=== PATIENT | female | born 1980 | race Caucasian/White ===

== ENCOUNTER 2019-11-09 10:22 | Emergency (ER) | payer MEDICAID, SELFPAY ==
[2019-11-09] VITALS (9 sets, daily range): BP systolic 122–150; BP diastolic 80–98; PULSE 71–82; RESP 16–20; TEMP 36.6; O2SAT 98–100; BMI 20.6
--- NOTE | 2019-11-09 10:40 | W.ED.ABDPA2 ---
HPI - Abdominal Pain General: Chief Complaint: Abdominal Pain Stated Complaint: ABD PAIN Time Seen by Provider: 11/09/19 10:36 History of Present Illness: Associated Symptoms: Denies chills, constipation, diarrhea, dysuria, fever(s), hematochezia, hematuria, nausea and vomiting Review of Systems Const: Denies: fever(s), chills or fatigue Eyes: Denies: change in vision or eye discomfort ENMT: Denies: throat pain, odynophagia, nasal discharge or nasal congestion Card: Denies: chest pain, palpitations, edema, swelling of feet/ankles, dyspnea on exertion or orthopnea Resp: Denies: dyspnea, productive cough or non-productive cough GI: Denies: abdominal pain, nausea, vomiting, diarrhea, constipation or hematochezia : Denies: flank pain, dysuria or hematuria Musc: Denies: neck pain, back pain or extremity swelling Skin/Breast: Denies: rash or new lesions Neuro: Denies: headache(s), numbness in extremities or weakness in extremities Physical Exam Const: COMMON NORMALS: patient oriented x3 HENMT: COMMON NORMALS: normocephalic HEAD & SCALP: normocephalic MOUTH: Normal oral and palatal mucosa present THROAT: posterior oropharynx normal and uvula midline Neck/C-Spine: COMMON NORMALS: supple GENERAL: Yes normal visual inspection Resp: COMMON NORMALS: normal respiratory effort, No retractions, No use of accessory muscles and clear to auscultation bilaterally AUSCULTATION: clear to auscultation bilaterally Cardio: COMMON NORMALS: regular rate, regular rhythm, S1 normal heart sound present, S2 normal heart sound present, No gallops present (Cardio), No clicks present (Cardio), No murmurs present (Cardio) and Peripheral pulses 2+ throughout RATE: regular rate RHYTHM: regular rhythm HEART SOUNDS: S1 normal heart sound present and S2 normal heart sound present PERIPHERAL PULSES: Peripheral pulses 2+ throughout GI: COMMON NORMALS: Normal to inspection, nondistended, normoactive bowel sounds present, Soft to palpation, non-tender and no masses PALPATION: Yes Soft to palpation : COMMON NORMALS: Yes no CVA tenderness BLADDER/KIDNEY EXAM: Yes no CVA tenderness Back/Pelvis: COMMON NORMALS: no CVA tenderness Neuro: COMMON NORMALS: patient oriented x3 GAIT: Yes Normal gait present Course Vital Signs: Vital signs: Vital Signs Temperature 97.9 F 11/09/19 10:28 Pulse Rate 82 11/09/19 10:28 Respiratory Rate 20 H 11/09/19 10:28 Blood Pressure 140/98 11/09/19 10:28 Pulse Oximetry 99 11/09/19 10:28 Coding Level of Care 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
--- NOTE | 2019-11-09 11:21 | XRR_ITS ---
PROCEDURE INFORMATION: Exam: XR Chest, 2 Views Exam date and time: 11/09/2019 12:00 PM Age: 39 years old Clinical indication: Other: Right lower pain and upper abd; Prior surgery; Surgery date: 6+ months; Surgery type: Lung transplant; Patient HX: Upper abd pain and rl abd. HX of cystic fibrosis TECHNIQUE: Imaging protocol: XR of the chest Views: 2 views. COMPARISON: CR Chest 1 [place] [id number] 06/22/2018 8:55 AM FINDINGS: Lungs: Mild hyperinflation of the right lung. No focal infiltrate. Parenchymal band/scarring left upper lobe. Apical pleural thickening. Stable. Pleural space: Unremarkable. No pleural effusion. No pneumothorax. Heart/Mediastinum: Unremarkable. No cardiomegaly. Bones/joints: prior sternotomy. XR/XR chest 2V* [id number] IMPRESSION: 1. Mild hyperinflation of the right lung. No focal infiltrate. 2. Parenchymal band/scarring left upper lobe. Apical pleural thickening. Stable.
[2019-11-09 11:22] LABS: Basophils % 0.2 %; Eosinophils % 0.1 %; Hematocrit 42.1 % (37.0-47.0); Hemoglobin 14.1 g/dL (11.5-15.3); Lymphocytes # 0.6 10^3/uL (0.8-4.8); Lymphocytes % 2.8 %; Mean Corpuscular HGB Conc 33.5 g/dL (30.0-36.0); Mean Corpuscular Hemoglobin 34.3 pg (28.0-34.0); Mean Corpuscular Volume 102.4 fL (81-99); Mean Platelet Volume 10.7 fL (7.4-10.4); Monocytes # 0.8 10^3/uL (0.2-0.9); Monocytes % 3.8 %; Neutrophils # 20.06 10^3/uL (1.8-7.7); Neutrophils % 92.7 %; Nucleated Red Blood Cells % 0 %; Platelet Count 260 10^3/cmm (130-400); Red Blood Count 4.11 10^6/uL (4.1-5.3); White Blood Count 21.6 10^3/uL (4.0-10.0)
[2019-11-09] MEDS: ondansetron 2 mg/ML SDV 2 mL 4 MG IVP (11:22)
[2019-11-09] MEDS: sodium chloride 0.9% 1,000 ML 999 ML IV (11:22)
[2019-11-09] MEDS: morphine 4 mg/mL SDV 1 mL IVP ×3 (11:23→17:46)
--- NOTE | 2019-11-09 11:31 | PC.NURSE ---
Xray at bedside
[2019-11-09 11:38] LABS: HCG, Serum Qual Negative (Negative)
[2019-11-09 11:55] LABS: Alanine Aminotransferase 19 U/L (0-33); Alkaline Phosphatase 127 IU/L (35-105); Anion Gap 18.1 (5-19); Aspartate Amino Transferase 31 U/L (0-32); Blood Urea Nitrogen 17 mg/dL (6-20); Calcium 8.9 mg/dL (8.5-10.5); Carbon Dioxide 22 mmol/L (22-29); Chloride 97 mmol/L (98-107); Globulin 3.3 g/dL (1.3-4.6); Glomerular Filtration Rate 27.7 mL/min (90-130); Glucose 105 mg/dL (65-115); Osmolality Calculated 275 mOsm/kg (285-295); Potassium 3.1 mmol/L (3.5-5.1); Sodium 134 mmol/L (136-145); Total Bilirubin 0.7 mg/dL (0.15-1.2); Total Protein 7.3 g/dL (6.6-8.7)
[2019-11-09 11:56] LABS: Lactic Sepsis W/Reflex 0.9 mmol/L (0.5-2.2)
--- NOTE | 2019-11-09 12:01 | CT_ITS ---
WS: [id number] CT ABDOMEN PELVIS TECHNIQUE: Noncontrast CT of the abdomen and pelvis with coronal and sagittal reformatted images. CLINICAL INFORMATION: Flank/Abdominal Pain COMPARISON: None. DLP: 408.[address] scans at [facility] use at least one of these dose optimization techniques: automat ed exposure control; mA and/or kV adjustment per patient size (includes targeted exams where dose is matched to clinical indication); or iterative reconstruction. FINDINGS: Thoracolumbar scoliosis convex right. Left BLADE. Prior sternotomy. Noncontrast liver is normal. Cholec ystectomy clips. Normal GE junction. Noncontrast spleen is normal. Normal adrenal glands. Nonobstruct ing bilateral renal parenchymal calculi the largest in the left measuring 7 mm. Mild to moderate dilatation of the right ureter with 4 mm calculus at the right UVJ. Mild inflammator y stranding about the right kidney. In addition, Right ovarian cystic lesion measures 3.2 x 3.2 CM an d also may contribute to ureteral obstruction. Urine distended bladder. Mild pancolonic constipation. No evidence of high-grade obstruction. No periaortic or inguinal lympha denopathy. No free fluid in the pelvis. Notified Karen Tamayo at 11/09/2019 2:[address]/CT kidney stone [id number] IMPRESSION: 1. 4 mm calculus at the right UVJ with mild to moderate right ureterectasis an d pelvocaliectasis. Mild inflammatory stranding about the right kidney. 2. In addition, Right ovarian cystic lesion measuring 3.2 x 3.2 cm also may co ntribute to right ureter obstruction. This can be followed up with ultrasound b ut is likely physiologic in a patient this age. 3. Additional nonobstructing bilateral renal parenchymal calculi. 4. Cholecystectomy clips. 5. Advanced thoracolumbar scoliosis. 6. Left BLADE. 7. No free fluid in the abdomen or pelvis. 8. Mild pancolonic constipation.
--- NOTE | 2019-11-09 12:01 | CT_ITS ---
WS: [id number] CT CHEST TECHNIQUE: Noncontrast CT of the chest with coronal and sagittal reformatted images. CLINICAL INFORMATION: PAIN COMPARISON: None. DLP: 203.[address] scans at [facility] use at least one of these dose optimization techniques: automat ed exposure control; mA and/or kV adjustment per patient size (includes targeted exams where dose is matched to clinical indication); or iterative reconstruction. FINDINGS: History of bilateral lung transplant. Slight tree-in-bud infiltrates in the left upper lobe laterally . Small amount of tree-in-bud infiltrate in the left lower lobe. Right lung is well aerated. No focal pneumonia. Chronic appearing fibrosis with bronchiectasis in the left upper lobe. No focal consolida tive pneumonia. No significant pleural fluid. Prior sternotomy. Advanced thoracolumbar scoliosis convex right in the thoracic spine. No mediastinal or hilar lymphadenopathy. No axillary lymphadenopathy. Cholecystectomy clips. Adrenal glands are normal. CT/CT chest wo con [id number] IMPRESSION: 1. History of bilateral lung transplant. 2. Small amount of tree-in-bud infiltrate in the left upper lobe and left lowe r lobe can be seen with chronic infectious or inflammatory etiologies. 3. Fibrotic appearing opacities in the left upper lobe with bronchiectasis lik pio chronic. 4. No consolidative pneumonia. 5. No pleural fluid. 6. Advanced thoracolumbar scoliosis.
[2019-11-09] MEDS: piperacillin-tazobactam 3.375 GM in sodium chloride 0.9% (plus) 50 ML IV ×2 (12:27→19:55)
[2019-11-09 12:30] LABS: Bilirubin Urine Neg (NEGATIVE); Blood Urine Neg (Negative); Glucose Urine UA Norm (Normal); Ketones Urine Negative (Negative); Leukocyte Esterase Urine Negative (Negative); Nitrate Urine Negative (Negative); Protein Urine Neg (Negative); RBC Urine 0-4 /hpf (0-2); Specific Gravity, Urine 1.005 (1.005-1.030); Squamous Epithelial Cell Urine 0-4 (0-5); Urine Appearance Clear (CLEAR); Urine Color Yellow (Yellow); Urobilinogen Urine Neg (Negative); WBC Urine 0-4 /hpf (0-5); pH Urine 6 (5-7)
[2019-11-09 12:31] LABS: Add Urine Culture? No; Bacteria Urine TRACE
[2019-11-09] MEDS: potassium chloride ER 10 mEq Tablet 40 MEQ PO (12:53)
[2019-11-09 13:10] LABS: Magnesium 1.8 mg/dL (1.7-2.3)
--- NOTE | 2019-11-09 13:25 | ED_ITS ---
HPI - Abdominal Pain General: Chief Complaint: Abdominal Pain Stated Complaint: ABD PAIN Time Seen by Provider: 11/09/19 10:36 Source: patient and family Mode of arrival: ambulatory Limitations: no limitations History of Present Illness: HPI narrative: Bridgette is a nice 39-year-old female comes in complaining of right upper quadrant and right flank pain. 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 She denies any cough or shortness of breath. She denies any loss of sense of taste or loss of smell. She is not had any fever that she is aware of. Denies any urinary symptoms such as dysuria or urinary urgency or frequency. Patient denies any diarrhea. She has been vomiting and it has been nonbloody. The pain is worse when she takes a deep breath but in her upper abdomen not in her chest. The patient denies any other exacerbating or alleviating factors other than when she pushes on the affected area it does hurt more. Patient denies there at anybody that could have exposed to the COVID-19 virus. She otherwise denies any complaints or concerns. Associated Symptoms: Denies chills, coffee ground emesis, constipation, GI cramping, diarrhea, dysuria, fever(s), heartburn, hematochezia, hematuria, hematemesis, melena and syncope Review of Systems Const: Denies: fever(s), chills, body aches, fatigue, malaise or diaphoresis Eyes: Denies: change in vision, blurry vision, blind spots, photophobia, eye discharge or eye redness ENMT: Denies: throat pain, odynophagia, hoarseness, swelling of lips/tongue, oral sores, ear or mastoid pain, ear discharge, change in hearing or nasal discharge Card: Denies: chest pain, palpitations, irregular heart rhythm, edema, lightheadedness, syncope, pre-syncope, dyspnea on exertion or orthopnea Resp: Denies: dyspnea, productive cough, non-productive cough, wheezing, hemoptysis or chest congestion GI: Denies: hematemesis, coffee ground emesis, heartburn, diarrhea, constipation, GI cramping, hematochezia or melena : Denies: flank pain, dysuria, urinary frequency, urinary urgency or hematuria Musc: Denies: neck pain, back pain, extremity pain, extremity swelling, joint pain, joint swelling, joint redness, joint warmth or joint stiffness Skin/Breast: Denies: rash, pruritus, erythema, skin tenderness or jaundice Neuro: Denies: headache(s), numbness in extremities, weakness in extremities, sensory changes, lack of coordination, difficulty walking, dizziness, vertigo, confusion, Slurred speech present or seizure-like activity Leonardo/Lymph: Denies: easy bruising, easy bleeding, petechiae, purpura or enlarged lymph nodes All/Imm: Denies: urticaria, throat swelling, tongue swelling, facial swelling or acute wheezing PFSH ED PFSH: Medical History (Updated 11/09/19 @ 16:09 by Karen Tamayo) CKD (chronic kidney disease) Cystic fibrosis Lung transplant recipient Surgical History (Updated 11/09/19 @ 13:26 by Karen Tamayo) S/P cholecystectomy Physical Exam Const: COMMON NORMALS: no acute distress, patient oriented x3, no limitations, healthy appearing and well nourished GENERAL APPEARANCE: cooperative, well kempt and well developed HENMT: COMMON NORMALS: normocephalic, atraumatic, external ears normal, EAC's normal and Normal external nose present HEAD & SCALP: normal to inspection, normocephalic and atraumatic FACE & SINUS: normal facial exam and face symmetric NOSE: Normal external nose present and Normal nares present EXTERNAL EAR: Yes external ears normal EXTERNAL AUDITORY CANAL: EAC's normal MOUTH: Normal oral and palatal mucosa present, lip normal and tongue normal Eye: COMMON NORMALS: Equal, round and reactive pupils present and conjunctivae normal GENERAL EYE: appearance normal, both eyes and all related structures ALIGNMENT: Yes alignment normal PERIORBITAL: periorbital findings normal EYELID: eyelids normal CONJUNCTIVA: Yes conjunctivae normal SCLERA: sclerae normal PUPIL: Yes Equal, round and reactive pupils present Neck/C-Spine: COMMON NORMALS: full ROM, no lymphadenopathy, supple, no meningeal signs and no JVD GENERAL: Yes normal visual inspection and Yes trachea midline Chest: COMMONS NORMALS: normal inspection of the chest and normal palpation of entire chest wall Resp: COMMON NORMALS: normal respiratory effort, No retractions and No use of accessory muscles EFFORT & INSPECTION: Yes able to speak in complete sentences and Yes symmetric chest movement AUSCULTATION: no crackles, no rales, no rhonchi and no wheezes Cardio: COMMON NORMALS: no JVD, regular rate, regular rhythm, S1 normal heart sound present and S2 normal heart sound present RATE: regular rate RHYTHM: regular rhythm HEART SOUNDS: S1 normal heart sound present, S2 normal heart sound present, no click, no gallops, no murmurs, no rubs and abnormal split S2 GI: COMMON NORMALS: Soft to palpation and No hepatosplenomegaly present PALPATION: Yes Soft to palpation, Yes Tenderness to palpation present (GI) Details: RUQ (Mild without rebound or guarding.), No Guarding due to palpation present (GI), No Rigid due to palpation, Yes No hepatosplenomegaly present, No Hernia present, No Palpable mass present and No Pulsatile mass present : COMMON NORMALS: Yes no CVA tenderness BLADDER/KIDNEY EXAM: Yes no CVA tenderness EXTERNAL FEMALE EXAM: No Hernia present Back/Pelvis: COMMON NORMALS: no CVA tenderness, thoracic and lumbar spine normal to inspection, no thoracic nor lumbar tenderness and thoraco-lumbar ROM normal Extremity: COMMON NORMALS: normal to inspection, full ROM, capillary refill normal, no joint enlargement, no clubbing, cyanosis or edema and no calf tenderness Neuro: COMMON NORMALS: patient oriented x3, CN's II-XII intact bilaterally, moves all extremities, no focal motor deficits and no sensory deficits noted MENINGEAL SIGNS: Yes no meningeal signs SPEECH: speech normal Psych: COMMON NORMALS: mental status grossly normal, Normal thought process present, cooperative, normal affect, speech normal and activity/motor behavior normal APPEARANCE: Yes well kempt SPEECH: Yes normal speech THOUGHT PROCESS: Normal thought process present Skin: COMMON NORMALS: no rashes or lesions noted, turgor normal, no jaundice, no petechiae and no mottling GENERAL SKIN EXAM: no rashes or lesions noted and turgor normal Course ED course: 1543 -Case reviewed with Dr. Mcfarland [facility] transplant service. He will accept the patient in transfer. 1834 -[facility] was called back with a bed. Patient's pain is under control but has required intermittent pain medication since previously seen. She has no fever. As for by EMS as soon as possible. Vital Signs: Vital signs: Vital Signs Temperature 97.9 F 11/09/19 10:28 Pulse Rate 75 11/09/19 14:36 Respiratory Rate 18 11/09/19 17:46 Blood Pressure 147/88 11/09/19 14:36 Pulse Oximetry 100 11/09/19 17:46 MDM - Abdominal Pain MDM Narrative: Medical decision making narrative: Patient has a right UVJ stone with associated hydroureteronephrosis. I reviewed the case with Dr. Mcfarland at [facility]. He will accept the patient in transfer. They will call us back when they get an appropriate bed assignment. Patient is clinically stable her pain is still controlled. Lab Data: Attestation: I reviewed the patient's lab results. Labs: Lab Results 11/09/19 11/09/19 11/09/19 Range/Units 10:50 11:10 11:10 WBC 21.6 H (4.0-10.0) 10^3/ uL RBC 4.11 (4.1-5.3) 10^6/u L Hgb 14.1 (11.5-15.3) g/dL Hct 42.1 (37.0-47.0) % MCV 102.4 H (81-99) fL MCH 34.3 H (28.0-34.0) pg MCHC 33.5 (30.0-36.0) g/dL RDW 14.0 (12.1-15.1) % Plt Count 260 (130-400) 10^3/c mm MPV 10.7 H (7.4-10.4) fL Neut % (Auto) 92.7 % Lymph % (Auto) 2.8 % Norman % (Auto) 3.8 % Eos % (Auto) 0.1 % Baso % (Auto) 0.2 % Neut # (Auto) 20.06 H (1.8-7.7) 10^3/u L Lymph # (Auto) 0.6 L (0.8-4.8) 10^3/u L Norman # (Auto) 0.8 (0.2-0.9) 10^3/u L Eos # (Auto) 0.0 (0.0-0.8) 10^3/u L Baso # (Auto) 0.0 (0.0-0.1) 10^3/u L Nucleated RBC % (a uto) 0 % Nucleated RBCs # 0.0 /100WBC Sodium 134 L (136-145) mmol/L Potassium 3.1 L (3.5-5.1) mmol/L Chloride 97 L (98-107) mmol/L Carbon Dioxide 22 (22-29) mmol/L Anion Gap 18.1 (5-19) BUN 17 (6-20) mg/dL Creatinine 2.0 H (0.5-0.9) mg/dL GFR Calculation 27.7 L (90-130) mL/min Glucose 105 (65-115) mg/dL Calculated Osmolal ity 275 L (285-295) mOsm/k g Lactic Acid (0.5-2.2) mmol/L Calcium 8.9 (8.5-10.5) mg/dL Magnesium (1.7-2.3) mg/dL Total Bilirubin 0.7 (0.15-1.2) mg/dL AST 31 (0-32) U/L ALT 19 (0-33) U/L Alkaline Phosphata se 127 H (35-105) IU/L Total Protein 7.3 (6.6-8.7) g/dL Albumin 4.0 (3.5-5.2) g/dL Globulin 3.3 (1.3-4.6) g/dL HCG, Qual (Negative) Urine Color Yellow (Yellow) Urine Appearance Clear (CLEAR) Urine pH 6 (5-7) Ur Specific Gravit y 1.005 (1.005-1.030) Urine Protein Neg (Negative) Urine Glucose (UA) Norm (Normal) Urine Ketones Negative (Negative) Urine Blood Neg (Negative) Urine Nitrate Negative (Negative) Urine Bilirubin Neg (NEGATIVE) Urine Urobilinogen Neg (Negative) mg/dL Ur Leukocyte Maty ase Negative (Negative) Urine RBC 0-4 H (0-2) /hpf Urine WBC 0-4 H (0-5) /hpf Ur Squamous Epith Cells 0-4 H (0-5) Amorphous Sediment Not Reportable Urine Bacteria Trace (NONE) 11/09/19 11/09/19 11/09/19 Range/Units 11:10 11:10 11:10 WBC (4.0-10.0) 10^3/ uL RBC (4.1-5.3) 10^6/u L Hgb (11.5-15.3) g/dL Hct (37.0-47.0) % MCV (81-99) fL MCH (28.0-34.0) pg MCHC (30.0-36.0) g/dL RDW (12.1-15.1) % Plt Count (130-400) 10^3/c mm MPV (7.4-10.4) fL Neut % (Auto) % Lymph % (Auto) % Norman % (Auto) % Eos % (Auto) % Baso % (Auto) % Neut # (Auto) (1.8-7.7) 10^3/u L Lymph # (Auto) (0.8-4.8) 10^3/u L Norman # (Auto) (0.2-0.9) 10^3/u L Eos # (Auto) (0.0-0.8) 10^3/u L Baso # (Auto) (0.0-0.1) 10^3/u L Nucleated RBC % (a uto) % Nucleated RBCs # /100WBC Sodium (136-145) mmol/L Potassium (3.5-5.1) mmol/L Chloride (98-107) mmol/L Carbon Dioxide (22-29) mmol/L Anion Gap (5-19) BUN (6-20) mg/dL Creatinine (0.5-0.9) mg/dL GFR Calculation (90-130) mL/min Glucose (65-115) mg/dL Calculated Osmolal ity (285-295) mOsm/k g Lactic Acid 0.9 (0.5-2.2) mmol/L Calcium (8.5-10.5) mg/dL Magnesium 1.8 (1.7-2.3) mg/dL Total Bilirubin (0.15-1.2) mg/dL AST (0-32) U/L ALT (0-33) U/L Alkaline Phosphata se (35-105) IU/L Total Protein (6.6-8.7) g/dL Albumin (3.5-5.2) g/dL Globulin (1.3-4.6) g/dL HCG, Qual Negative (Negative) Urine Color (Yellow) Urine Appearance (CLEAR) Urine pH (5-7) Ur Specific Gravit y (1.005-1.030) Urine Protein (Negative) Urine Glucose (UA) (Normal) Urine Ketones (Negative) Urine Blood (Negative) Urine Nitrate (Negative) Urine Bilirubin (NEGATIVE) Urine Urobilinogen (Negative) mg/dL Ur Leukocyte Maty ase (Negative) Urine RBC (0-2) /hpf Urine WBC (0-5) /hpf Ur Squamous Epith Cells (0-5) Amorphous Sediment Urine Bacteria (NONE) Imaging Data ^: CT Chest: Radiologist's impression: [address] [address] [address] Scan Report Signed Patient: Bridgette Richards Unit #: [id number] : 1980 Age/Sex: 39 / F ADM Date: 11/09/19 Loc: ER Room/Bed: Attending Dr: Ordering Provider/Ordering MD: Karen Tamayo DO Date of Service: 11/09/19 Procedure(s): CT chest wo con [id number] Accession Number(s): [id number] Report Number: [id number] WS: [id number] CT CHEST TECHNIQUE: Noncontrast CT of the chest with coronal and sagittal reformatted images. CLINICAL INFORMATION: PAIN COMPARISON: None. DLP: 203.[address] scans at [facility] use at least one of these dose optimization techniques: automated exposure control; mA and/or kV adjustment per patient size (includes targeted exams where dose is matched to clinical indication); or iterative reconstruction. FINDINGS: History of bilateral lung transplant. Slight tree-in-bud infiltrates in the left upper lobe laterally. Small amount of tree-in-bud infiltrate in the left lower lobe. Right lung is well aerated. No focal pneumonia. Chronic appearing fibrosis with bronchiectasis in the left upper lobe. No focal consolidative pneumonia. No significant pleural fluid. Prior sternotomy. Advanced thoracolumbar scoliosis convex right in the thoracic spine. No mediastinal or hilar lymphadenopathy. No axillary lymphadenopathy. Cholecystectomy clips. Adrenal glands are normal. CT/CT chest wo con [id number] IMPRESSION: 1. History of bilateral lung transplant. 2. Small amount of tree-in-bud infiltrate in the left upper lobe and left lower lobe can be seen with chronic infectious or inflammatory etiologies. 3. Fibrotic appearing opacities in the left upper lobe with bronchiectasis likely chronic. 4. No consolidative pneumonia. 5. No pleural fluid. 6. Advanced thoracolumbar scoliosis. Dictated By: Xander Bliss MD Signed By: Xander Bliss MD Signed Date/Time: 11/09/19 1403 DD/ 1359 CT Abd/Pel: Radiologist's impression: [facility] [address] [place] [address] CT Scan Report Signed Patient: Bridgette Richards Unit #: [id number] : 1980 Age/Sex: 39 / F ADM Date: 11/09/19 Loc: ER Room/Bed: Attending Dr: Ordering Provider/Ordering MD: Karen Tamayo DO Date of Service: 11/09/19 Procedure(s): CT kidney stone [id number] Accession Number(s): [id number] Report Number: [id number] WS: [id number] CT ABDOMEN PELVIS TECHNIQUE: Noncontrast CT of the abdomen and pelvis with coronal and sagittal reformatted images. CLINICAL INFORMATION: Flank/Abdominal Pain COMPARISON: None. DLP: 408.[address] scans at [facility] use at least one of these dose optimization techniques: automated exposure control; mA and/or kV adjustment per patient size (includes targeted exams where dose is matched to clinical indication); or iterative reconstruction. FINDINGS: Thoracolumbar scoliosis convex right. Left BLADE. Prior sternotomy. Noncontrast liver is normal. Cholecystectomy clips. Normal GE junction. Noncontrast spleen is normal. Normal adrenal glands. Nonobstructing bilateral renal parenchymal calculi the largest in the left measuring 7 mm. Mild to moderate dilatation of the right ureter with 4 mm calculus at the right UVJ. Mild inflammatory stranding about the right kidney. In addition, Right ovarian cystic lesion measures 3.2 x 3.2 CM and also may contribute to ureteral obstruction. Urine distended bladder. Mild pancolonic constipation. No evidence of high-grade obstruction. No periaortic or inguinal lymphadenopathy. No free fluid in the pelvis. Notified Karen Tamayo at 11/09/2019 2:[address]/CT kidney stone [id number] IMPRESSION: 1. 4 mm calculus at the right UVJ with mild to moderate right ureterectasis and pelvocaliectasis. Mild inflammatory stranding about the right kidney. 2. In addition, Right ovarian cystic lesion measuring 3.2 x 3.2 cm also may contribute to right ureter obstruction. This can be followed up with ultrasound but is likely physiologic in a patient this age. 3. Additional nonobstructing bilateral renal parenchymal calculi. 4. Cholecystectomy clips. 5. Advanced thoracolumbar scoliosis. 6. Left BLADE. 7. No free fluid in the abdomen or pelvis. 8. Mild pancolonic constipation. Dictated By: Xander Bliss MD Signed By: Xander Bliss MD Signed Date/Time: 11/09/19 141 DD/ 1403 Discharge Plan Discharge Patient Disposition: Xfer Short-Term Hosp Clinical Impression: Cystic fibrosis, Renal colic Renal failure Qualifiers: Renal failure chronicity: acute Acute renal failure type: unspecified Qualified Code(s): N17.9 - Acute kidney failure, unspecified Condition: Stable Referrals: Scottie Herrera MD [Primary Care Provider] - Patient Instructions: Cholecystitis (ED), Abdominal Pain (ED) Coding Level of Care Code ED Nurse Informaticist for g Fwd Exam Comprehensive
[2019-11-09] MEDS: sodium chloride 0.9% 1,000 ML 100 ML IV (19:55)
== END 2019-11-09 20:00 | disposition short-term general hospital (02) ==
PROVIDERS: Physician Assistant; Emergency Provider Emergency Medicine; PCP Family Medicine
DX: E84.9 Cystic fibrosis, unspecified (principal); N17.9 Acute kidney failure, unspecified; Z94.2 Lung transplant status
CPT/HCPCS: 12345; 36415; 71046; 71250; 74176; 80053; 81001; 83605; 83735; 84703; 85025; 87040; 96360; 96361; 96365; 96367; 96375; 96376; 99283; 99285; J2270; J2405; J2543; J7030

== ENCOUNTER 2019-12-06 17:38 | Emergency (ER) | payer MEDICAID, SELFPAY ==
[2019-12-06 17:43] VITALS: BP 151/92; PULSE 97; RESP 18; O2SAT 96; BMI 20.7
--- NOTE | 2019-12-06 17:48 | XRR_ITS ---
PROCEDURE INFORMATION: Exam: XR Left Hip Exam date and time: 12/06/2019 6:20 PM Age: 39 years old Clinical indication: Pain and injury or trauma; Fall; Initial encounter; Blunt trauma (contusions or hematomas); Hip pain; Injury date: 12/06/19; Prior surgery; Surgery date: 6+ months; Surgery type: Left hip 2 years ago TECHNIQUE: Imaging protocol: XR Left hip Views: AP neutral and frogleg views. COMPARISON: CR Pelvis AP 1 or 2 views* [id number] 06/17/2017 2:26 PM FINDINGS: Tubes, catheters and devices: Partially imaged distal right internalized ureteral stent. Bones/joints: Previous left total hip arthroplasty. Superior anterior dislocation of the prosthetic femoral head. No acute bony abnormality identified. Soft tissues: Left pelvic surgical clips. XR/XR hip LT 2-3V wo/w pel* [id number] IMPRESSION: 1. Previous left total hip arthroplasty. 2. Dislocation of the prosthetic femoral head. 3. No acute bony injury identified.
--- NOTE | 2019-12-06 17:49 | W.ED.GENADLT ---
Documented by User: NAHID Ga 12/06/19 17:51 HPI - General Adult General: Chief complaint: Extremity Injury, Lower Stated complaint: GROUND LEVEL FALL Time Seen by Provider: 12/06/19 17:44 History of Present Illness: HPI narrative: Arrived via ambulance with complaint left hip pain. Patient was in the shower and she fell on her left side and felt pain to her left hip and she is unable to stand on now and says it hurts quite a bit. Patient does have history of cystic fibrosis. Recently had stents put in kidney. Due to kidney stone. MD complaint: Left hip pain Onset (ago): minute(s) Location: pelvis and left Radiation: non-radiation Severity scale (1-10): 8 Quality: aching Pain Consistency: constant Relieving factors: immobilization Exacerbating factors: movement Associated symptoms: Reports no associated symptoms; Deny chest pain, dyspnea, headache(s), nausea, rash or vomiting Review of Systems Const: Denies: fever(s), chills or body aches Eyes: Denies: change in vision or blurry vision ENMT: Denies: throat pain or nasal congestion Card: Denies: chest pain or dyspnea on exertion Resp: Denies: dyspnea, productive cough or non-productive cough GI: Denies: abdominal pain, nausea or vomiting Musc: Reports: joint pain (Left hip); Denies: extremity pain Skin/Breast: Denies: rash Neuro: Denies: headache(s) Psych: Denies: anxiety or depression Leonardo/Lymph: Denies: easy bruising PFS ED PFSH: Medical History (Updated 11/17/19 @ 00:01 by ) CKD (chronic kidney disease) Cystic fibrosis Lung transplant recipient Surgical History (Updated 11/09/19 @ 13:26 by Karen Tamayo) S/P cholecystectomy Physical Exam Const: COMMON NORMALS: no acute distress, average body habitus and patient oriented x3 HENMT: COMMON NORMALS: normocephalic HEAD & SCALP: normal to inspection and normocephalic FACE & SINUS: normal facial exam Eye: COMMON NORMALS: conjunctivae normal GENERAL EYE: appearance normal, both eyes and all related structures CONJUNCTIVA: Yes conjunctivae normal Neck/C-Spine: COMMON NORMALS: no JVD Chest: COMMONS NORMALS: normal inspection of the chest Resp: COMMON NORMALS: normal respiratory effort and clear to auscultation bilaterally AUSCULTATION: clear to auscultation bilaterally Cardio: COMMON NORMALS: no JVD, regular rate and regular rhythm RATE: regular rate RHYTHM: regular rhythm GI: COMMON NORMALS: Normal to inspection, nondistended, normoactive bowel sounds present Extremity: LEFT LOWER EXTREMITY: Yes hip joint (Pain with palpation in the socket itself area leg does not appear rotated or shortened. She is able to move it some. Distal neurovascular intact. Denies any other problems.) Neuro: COMMON NORMALS: patient oriented x3 Course Vital Signs: Vital signs: Vital Signs Temperature 99.0 F 12/06/19 18:25 Pulse Rate 79 12/06/19 18:25 Respiratory Rate 24 H 12/06/19 18:42 Blood Pressure 169/101 12/06/19 18:25 Pulse Oximetry 96 12/06/19 18:42 Discharge Plan Discharge Prescriptions: No Action oxycodone 5 mg Tablet 5 mg PO Q4H PRN (Reason: Pain) RF: 0 multivitamin [Multiple Vitamins] Tablet 1 tab PO DAILY RF: 0 cetirizine [Zyrtec] 10 mg Tablet 10 mg PO DAILY RF: 0 azithromycin 250 mg Tablet See Rx Instructions .ROUTE .COMPLEX RF: 0 mycophenolate mofetil 250 mg Capsule 750 mg PO BID RF: 0 prednisone 5 mg Tablet 5 mg PO QAM RF: 0 valacyclovir 500 mg Tablet 500 mg PO DAILY RF: 0 sulfamethoxazole-trimethoprim [Bactrim DS] 800-160 mg Tablet See Rx Instructions .ROUTE .COMPLEX RF: 0 tramadol [Ultram] 50 mg Tablet 50 - 100 mg PO QID PRN (Reason: Pain) RF: 0 pantoprazole [Protonix] 40 mg Tablet,Delayed Release (Dr/Ec) 40 mg PO DAILY RF: 0 vitamin B complex Tablet 1 tab PO DAILY RF: 0 tacrolimus 0.5 mg Capsule See Rx Instructions .ROUTE .COMPLEX RF: 0 topiramate [Topamax] 50 mg Tablet 75 mg PO BEDTIME RF: 0 pregabalin [Lyrica] 200 mg Capsule 200 mg PO BID RF: 0 Creon 24,000-76,000 -120,000 unit Capsule,Delayed Release(Dr/Ec) See Rx Instructions .ROUTE .COMPLEX RF: 0 Viibryd 20 mg Tablet 20 mg PO DAILY RF: 0 Coding Level of Care Code ED Cardroom Plastic Card Grader for Chg Fwd Exam Comprehensive Documented by User: Mason Groves MD 12/06/19 19:52 HPI - General Adult General: Chief complaint: Extremity Injury, Lower Stated complaint: GROUND LEVEL FALL Time Seen by Provider: 12/06/19 17:44 PFSH ED PFSH: Medical History (Updated 11/17/19 @ 00:01 by ) CKD (chronic kidney disease) Cystic fibrosis Lung transplant recipient Surgical History (Updated 11/09/19 @ 13:26 by Karen Tamayo) S/P cholecystectomy Procedures Orthopedic Joint Reduction Joint #1: Time Out Performed: Yes Side: left Joint Reduction Location: hip Analgesia: procedural sedation Technique used: traction/counter-traction Post-reduction neuro exam: intact Post-reduction vascular: intact Post Reduction X-Ray Obtained: Yes Post Reduction X-Ray Results: reduced Splint Applied: Yes Patient Tolerated Procedure: well Procedural Sedation Indication: fracture/dislocation reduction ASA Class: I Time of Last PO Intake: 12:51 Preparation: agricultural agent applied, pulse oximeter, capnometry used, supplemental O2 applied, suction/airway equipment at bedside and IV secured IV Propofol dose (mg): 140 Complications: none Interventions: oxygen applied Course Vital Signs: Vital signs: Vital Signs Temperature 99.0 F 12/06/19 18:25 Pulse Rate 79 12/06/19 18:25 Respiratory Rate 24 H 12/06/19 18:42 Blood Pressure 169/101 12/06/19 18:25 Pulse Oximetry 96 12/06/19 18:42 Discharge Plan Discharge Prescriptions: No Action oxycodone 5 mg Tablet 5 mg PO Q4H PRN (Reason: Pain) RF: 0 multivitamin [Multiple Vitamins] Tablet 1 tab PO DAILY RF: 0 cetirizine [Zyrtec] 10 mg Tablet 10 mg PO DAILY RF: 0 azithromycin 250 mg Tablet See Rx Instructions .ROUTE .COMPLEX RF: 0 mycophenolate mofetil 250 mg Capsule 750 mg PO BID RF: 0 prednisone 5 mg Tablet 5 mg PO QAM RF: 0 valacyclovir 500 mg Tablet 500 mg PO DAILY RF: 0 sulfamethoxazole-trimethoprim [Bactrim DS] 800-160 mg Tablet See Rx Instructions .ROUTE .COMPLEX RF: 0 tramadol [Ultram] 50 mg Tablet 50 - 100 mg PO QID PRN (Reason: Pain) RF: 0 pantoprazole [Protonix] 40 mg Tablet,Delayed Release (Dr/Ec) 40 mg PO DAILY RF: 0 vitamin B complex Tablet 1 tab PO DAILY RF: 0 tacrolimus 0.5 mg Capsule See Rx Instructions .ROUTE .COMPLEX RF: 0 topiramate [Topamax] 50 mg Tablet 75 mg PO BEDTIME RF: 0 pregabalin [Lyrica] 200 mg Capsule 200 mg PO BID RF: 0 Creon 24,000-76,000 -120,000 unit Capsule,Delayed Release(Dr/Ec) See Rx Instructions .ROUTE .COMPLEX RF: 0 Viibryd 20 mg Tablet 20 mg PO DAILY RF: 0 Coding Level of Care Code ED Cardroom Plastic Card Grader for Chg Fwd Exam Comprehensive
[2019-12-06 18:25] VITALS: BP 169/101; PULSE 79; RESP 24; TEMP 37.2; O2SAT 99
[2019-12-06 18:42] VITALS: RESP 24; O2SAT 96
[2019-12-06] MEDS: morphine 4 mg/mL SDV 1 mL IVP (18:42)
[2019-12-06 19:34] VITALS: BP 175/96; PULSE 90; RESP 18; O2SAT 100
[2019-12-06] MEDS: propofol 10 mg/mL SDV 20 mL 50 MG IVP (19:35)
[2019-12-06] MEDS: propofol 10 mg/mL SDV 20 mL 110 MG IVP (19:36)
[2019-12-06 19:41] VITALS: BP 123/78; PULSE 74; RESP 14; O2SAT 100
--- NOTE | 2019-12-06 19:41 | XRR_ITS ---
PROCEDURE INFORMATION: Exam: XR Left Hip Exam date and time: 12/06/2019 8:19 PM Age: 39 years old Clinical indication: Injury or trauma; Fall; Initial encounter; Blunt trauma (contusions or hematomas); Left; Hip; Injury date: 12/06/19; Prior surgery; Surgery date: 6+ months; Patient HX: Post reduction TECHNIQUE: Imaging protocol: XR Left hip Views: Single AP view. COMPARISON: CR XR hip LT 2-3V wo/w pel* [id number] 12/06/2019 6:03 PM FINDINGS: Bones/joints: Previous left total hip arthroplasty. Interval reduction of the prosthetic femoral head dislocation as visualized in the single plane. No acute bony abnormality identified. Soft tissues: Unremarkable. XR/XR hip LT 1V wo/w pel [id number] IMPRESSION: 1. Previous left total hip arthroplasty. 2. Interval reduction of the prosthetic femoral head dislocation. 3. No acute bony injury identified.
--- NOTE | 2019-12-06 19:52 | PC.NURSE ---
Sedation start 1933- end 1938
== END 2019-12-06 20:49 | disposition home or self-care (01) ==
PROVIDERS: Emergency Provider Nurse Practitioner Family; PCP Family Medicine
DX: T84.021A Dislocation of internal left hip prosthesis, initial encounter (principal); W18.2XXA Fall in (into) shower or empty bathtub, initial encounter; E84.9 Cystic fibrosis, unspecified; Z94.2 Lung transplant status
CPT/HCPCS: 12345; 27250; 27265; 29530; 73501; 73502; 96374; 96375; 96376; 99283; J2270; J2704

== ENCOUNTER 2020-02-05 10:11 | Emergency (ER) | payer MEDICAID, SELFPAY ==
[2020-02-05 10:17] VITALS: BP 172/100; PULSE 91; RESP 18; TEMP 36.8; O2SAT 96; BMI 21.3
--- NOTE | 2020-02-05 10:26 | ED_ITS ---
HPI - Abdominal Pain General: Chief Complaint: Abdominal Pain Stated Complaint: Lower abdominal pain/back pain Time Seen by Provider: 02/05/20 10:18 History of Present Illness: HPI narrative: Patient is a 39-year-old female comes to the ED with left lower quadrant abdominal pain. Patient has a past medical history of kidney stones, lung transplant, cholecystectomy, CKD and cystic fibrosis. Patient was seen here on 11/08 and had kidney stone on right side. Patient was transferred to [facility] to get stone removed. I also noted that patient had multiple nonobstructing stones on the left side that she was scheduled to get removed early this February. She started having left lower abdominal pain that similar to past kidney stones on Saturday. She says it since is just progressed more painful. Denies any fever, chills, dysuria, chest pain, shortness of breath or bowel symptoms. She says that today she did develop some nausea and emesis. She currently rates her pain 7 out of 10. Associated Symptoms: Denies chills, constipation, diarrhea, dysuria, fever(s), hematochezia, hematuria, nausea and vomiting Review of Systems Const: Denies: fever(s), chills or fatigue Eyes: Denies: change in vision or eye discomfort ENMT: Denies: throat pain, odynophagia, nasal discharge or nasal congestion Card: Denies: chest pain, palpitations, edema, swelling of feet/ankles, dyspnea on exertion or orthopnea Resp: Denies: dyspnea, productive cough or non-productive cough GI: Denies: abdominal pain, nausea, vomiting, diarrhea, constipation or hematochezia : Denies: flank pain, dysuria or hematuria Musc: Denies: neck pain, back pain or extremity swelling Skin/Breast: Denies: rash or new lesions Neuro: Denies: headache(s), numbness in extremities or weakness in extremities PFSH ED PFSH: Medical History CKD (chronic kidney disease) Cystic fibrosis Lung transplant recipient Surgical History S/P cholecystectomy Physical Exam Const: COMMON NORMALS: no acute distress, patient oriented x3, healthy appearing and alert GENERAL APPEARANCE: cooperative and comfortable HENMT: COMMON NORMALS: normocephalic HEAD & SCALP: normocephalic MOUTH: Normal oral and palatal mucosa present THROAT: posterior oropharynx normal and uvula midline Neck/C-Spine: COMMON NORMALS: supple GENERAL: Yes normal visual inspection Resp: COMMON NORMALS: normal respiratory effort, No retractions, No use of accessory muscles and clear to auscultation bilaterally AUSCULTATION: clear to auscultation bilaterally Cardio: COMMON NORMALS: regular rate, regular rhythm, S1 normal heart sound present, S2 normal heart sound present, No gallops present (Cardio), No clicks present (Cardio), No murmurs present (Cardio) and Peripheral pulses 2+ throughout RATE: regular rate RHYTHM: regular rhythm HEART SOUNDS: S1 normal heart sound present and S2 normal heart sound present PERIPHERAL PULSES: Peripheral pulses 2+ throughout GI: COMMON NORMALS: Normal to inspection, nondistended, normoactive bowel sounds present, Soft to palpation, non-tender and no masses PALPATION: Yes Soft to palpation and Yes Tenderness to palpation present (GI) Details: LLQ (mild) : COMMON NORMALS: Yes no CVA tenderness BLADDER/KIDNEY EXAM: Yes no CVA tenderness Back/Pelvis: COMMON NORMALS: no CVA tenderness Extremity: COMMON NORMALS: normal to inspection and no pedal edema Neuro: COMMON NORMALS: patient oriented x3 SENSORIUM/ORIENTATION: Yes alert GAIT: Yes Normal gait present Skin: GENERAL SKIN EXAM: dry skin Course Vital Signs: Vital signs: Vital Signs Temperature 98.3 F 02/05/20 10:17 Pulse Rate 91 02/05/20 10:17 Respiratory Rate 18 02/05/20 11:10 Blood Pressure 172/100 02/05/20 10:17 Pulse Oximetry 96 02/05/20 10:17 MDM - Abdominal Pain MDM Narrative: Medical decision making narrative: Patient is a 39-year-old female comes to the ED with left lower quadrant abdominal pain. Patient has a past medical history of kidney stones, lung transplant, cholecystectomy, CKD and cystic fibrosis. White blood cell count 15-patient is on daily dose of steroid for transplant. UA was unremarkable. CT kidney stone shows no acute findings, and highlighted 2 nonobstructing stones that are on the left side. Patient has a scheduled stent placement on February 21 to get those kidney stones removed at [facility]. Patient was diagnosed with left lower quadrant abdominal pain of unknown cause. Patient was told to follow-up with PCP in 7 to 10 days. Return to ED precautions given. Continue taking all home meds as previously prescribed. Patient understood and agreed with plan. Lab Data: Attestation: I reviewed the patient's lab results. Labs: Lab Results 02/05/20 02/05/20 02/05/20 Range/Units 10:40 10:40 10:56 WBC 15.0 H (4.0-10.0) 10^3/ uL RBC 4.52 (4.1-5.3) 10^6/u L Hgb 15.1 (11.5-15.3) g/dL Hct 45.1 (37.0-47.0) % MCV 99.8 H (81-99) fL MCH 33.4 (28.0-34.0) pg MCHC 33.5 (30.0-36.0) g/dL RDW 14.0 (12.1-15.1) % Plt Count 305 (130-400) 10^3/c mm MPV 11.0 H (7.4-10.4) fL Neut % (Auto) 89.2 % Lymph % (Auto) 5.8 % Kenedy % (Auto) 4.0 % Eos % (Auto) 0.4 % Baso % (Auto) 0.3 % Neut # (Auto) 13.35 H (1.8-7.7) 10^3/u L Lymph # (Auto) 0.9 (0.8-4.8) 10^3/u L [place] # (Auto) 0.6 (0.2-0.9) 10^3/u L Eos # (Auto) 0.1 (0.0-0.8) 10^3/u L Baso # (Auto) 0.0 (0.0-0.1) 10^3/u L Nucleated RBC % (a uto) 0 % Nucleated RBCs # 0.0 /100WBC Sodium Cancelled Potassium Cancelled Chloride Cancelled Carbon Dioxide Cancelled Anion Gap Cancelled BUN Cancelled Creatinine Cancelled GFR Calculation Cancelled Glucose Cancelled Calculated Osmolal ity Cancelled Calcium Cancelled Total Bilirubin Cancelled AST Cancelled ALT Cancelled Alkaline Phosphata se Cancelled Total Protein Cancelled Albumin Cancelled Globulin Cancelled Lipase Cancelled Ser , Zahra i-Qnt Cancelled Urine Color Yellow (Yellow) Urine Appearance Clear (CLEAR) Urine pH 7.0 (5-7) Ur Specific Gravit y 1.005 (1.005-1.030) Urine Protein Neg (Negative) Urine Glucose (UA) Norm (Normal) Urine Ketones Negative (Negative) Urine Blood Neg (Negative) Urine Nitrate Negative (Negative) Urine Bilirubin Neg (Negative) Urine Urobilinogen Norm (Negative) mg/dL Ur Leukocyte Maty ase Negative (Negative) Imaging Data ^: CT Abd/Pel: Attestation: I personally reviewed and interpreted this imaging study as follows: Radiologist's impression: [address] [id number] [address] Scan Report Signed Patient: Bridgette Richards Unit #: [id number] : 1980 Age/Sex: 39 / F ADM Date: 02/05/20 Loc: ER Room/Bed: Attending Dr: Ordering Provider/Ordering MD: Js Mena Date of Service: 02/05/20 Procedure(s): CT kidney stone 23702 Accession Number(s): [id number] Report Number: [id number] PROCEDURE INFORMATION: Exam: CT Abdomen And Pelvis Without Contrast Exam date and time: 02/05/2020 10:50 AM Age: 39 years old Clinical indication: Abdominal pain; Localized; Left lower quadrant (llq); Prior surgery; Surgery date: 6+ months; Surgery type: Hyst, gb, lung; Patient HX: C/O llq pain w HX of stones; Additional info: Llq pain with history of kidney stones TECHNIQUE: Imaging protocol: Computed tomography of the abdomen and pelvis without contrast. Radiation optimization: All CT scans at this facility use at least one of these dose optimization techniques: automated exposure control; mA and/or kV adjustment per patient size (includes targeted exams where dose is matched to clinical indication); or iterative reconstruction. COMPARISON: CR XR hip LT 1V wo/w pel [id number] 12/06/2019 8:09 PM RADIATION DOSE METRICS: Total DLP (mGy-cm): 481.64 FINDINGS: Mediastinal space: Rightward severe thoracolumbar spinal curvature. Liver: Normal. No mass. Gallbladder and bile ducts: The gallbladder is surgically absent, with metallic clips in the gallbladder fossa. Pancreas: Normal. No ductal dilation. Spleen: Normal. No splenomegaly. Adrenals: Normal. No mass. Kidneys and ureters: No hydronephrosis. Left renal upper pole 8.1 mm calyceal calculus, 3.2 mm lower pole calculus. Small right renal lower pole calculus. Stomach and bowel: There is increased stool noted in the abdominal colon. Appendix: Multiple small appendicoliths without evidence of appendicitis. Intraperitoneal space: Unremarkable. No free air. No significant fluid collection. Vasculature: Right pelvic phlebolith. Mild aortic atherosclerotic calcification without aneurysm. Atherosclerotic calcifications are present involving the RCA coronary artery. Lymph nodes: No enlarged lymph nodes. Urinary bladder: Partially obscured by streak artifact. The urinary bladder is decompressed and difficult to assess. No calculi as visualized. Reproductive: The uterus is status post hysterectomy. Bones/joints: Left total hip replacement with streak artifact. Diffuse osteopenia. Right lower lumbar facet primary osteoarthritis. The patient is status post median sternotomy with sternal cerclage wires. Soft tissues: Unremarkable. CT/CT kidney stone 22956 IMPRESSION: 1. Prior hysterectomy. 2. Appendicoliths without evidence of appendicitis. 3. Prior cholecystectomy. 4. Bilateral renal calyceal lithiasis. 5. Mild abdominal colonic constipation. 6. Coronary atherosclerosis. Radiation Dose CTDIVOL = (mGy): DLP = 481.64 (mGy-cm) Dictated By: Junaid Henderson MD Signed By: Junaid Henderson MD Signed Date/Time: 02/05/201116 DD/ 15 Discharge Plan Discharge Patient Disposition: Home Clinical Impression: Abdominal pain Qualifiers: Abdominal location: left lower quadrant Qualified Code(s): R10.32 - Left lower quadrant pain Condition: Stable Prescriptions: No Action oxycodone 5 mg Tablet 5 mg PO Q4H PRN (Reason: Pain) RF: 0 multivitamin [Multiple Vitamins] Tablet 1 tab PO DAILY RF: 0 cetirizine [Zyrtec] 10 mg Tablet 10 mg PO DAILY RF: 0 azithromycin 250 mg Tablet See Rx Instructions .ROUTE .COMPLEX RF: 0 mycophenolate mofetil 250 mg Capsule 750 mg PO BID RF: 0 prednisone 5 mg Tablet 5 mg PO QAM RF: 0 valacyclovir 500 mg Tablet 500 mg PO DAILY RF: 0 sulfamethoxazole-trimethoprim [Bactrim DS] 800-160 mg Tablet See Rx Instructions .ROUTE .COMPLEX RF: 0 tramadol [Ultram] 50 mg Tablet 50 - 100 mg PO QID PRN (Reason: Pain) RF: 0 pantoprazole [Protonix] 40 mg Tablet,Delayed Release (Dr/Ec) 40 mg PO DAILY RF: 0 vitamin B complex Tablet 1 tab PO DAILY RF: 0 tacrolimus 0.5 mg Capsule See Rx Instructions .ROUTE .COMPLEX RF: 0 topiramate [Topamax] 50 mg Tablet 75 mg PO BEDTIME RF: 0 pregabalin [Lyrica] 200 mg Capsule 200 mg PO BID RF: 0 Creon 24,000-76,000 -120,000 unit Capsule,Delayed Release(Dr/Ec) See Rx Instructions .ROUTE .COMPLEX RF: 0 Viibryd 20 mg Tablet 20 mg PO DAILY RF: 0 Discharge Orders: Discharge Order (Routine); Ordered 02/05/20 Ordered By: Js Mena Referrals: Scottie Herrera MD [Primary Care Provider] - Discharge Diet: Regular Discharge Activity: Increase activity as tolerated Patient Instructions: Abdominal Pain (ED) Activity Restrictions/Additional Instructions: Follow-up with medical provider as directed. Continue taking all home medications as prescribed. Return to the ER or your medical provider if condition worsens. Please read and understand discharge instructions. If any questions, please ask. Discharge Date/Time: 02/05/20 12:30 Coding Level of Care Code ED Vp Genetic for Alphonse Fwandrew Exam Comprehensive
--- NOTE | 2020-02-05 10:41 | CTR_ITS ---
PROCEDURE INFORMATION: Exam: CT Abdomen And Pelvis Without Contrast Exam date and time: 02/05/2020 10:50 AM Age: 39 years old Clinical indication: Abdominal pain; Localized; Left lower quadrant (llq); Prior surgery; Surgery date: 6+ months; Surgery type: Hyst, gb, lung; Patient HX: C/O llq pain w HX of stones; Additional info: Llq pain with history of kidney stones TECHNIQUE: Imaging protocol: Computed tomography of the abdomen and pelvis without contrast. Radiation optimization: All CT scans at this facility use at least one of these dose optimization techniques: automated exposure control; mA and/or kV adjustment per patient size (includes targeted exams where dose is matched to clinical indication); or iterative reconstruction. COMPARISON: CR XR hip LT 1V wo/w pel [id number] 12/06/2019 8:09 PM RADIATION DOSE METRICS: Total DLP (mGy-cm): 481.64 FINDINGS: Mediastinal space: Rightward severe thoracolumbar spinal curvature. Liver: Normal. No mass. Gallbladder and bile ducts: The gallbladder is surgically absent, with metallic clips in the gallbladder fossa. Pancreas: Normal. No ductal dilation. Spleen: Normal. No splenomegaly. Adrenals: Normal. No mass. Kidneys and ureters: No hydronephrosis. Left renal upper pole 8.1 mm calyceal calculus, 3.2 mm lower pole calculus. Small right renal lower pole calculus. Stomach and bowel: There is increased stool noted in the abdominal colon. Appendix: Multiple small appendicoliths without evidence of appendicitis. Intraperitoneal space: Unremarkable. No free air. No significant fluid collection. Vasculature: Right pelvic phlebolith. Mild aortic atherosclerotic calcification without aneurysm. Atherosclerotic calcifications are present involving the RCA coronary artery. Lymph nodes: No enlarged lymph nodes. Urinary bladder: Partially obscured by streak artifact. The urinary bladder is decompressed and difficult to assess. No calculi as visualized. Reproductive: The uterus is status post hysterectomy. Bones/joints: Left total hip replacement with streak artifact. Diffuse osteopenia. Right lower lumbar facet primary osteoarthritis. The patient is status post median sternotomy with sternal cerclage wires. Soft tissues: Unremarkable. CT/CT kidney stone [id number] IMPRESSION: 1. Prior hysterectomy. 2. Appendicoliths without evidence of appendicitis. 3. Prior cholecystectomy. 4. Bilateral renal calyceal lithiasis. 5. Mild abdominal colonic constipation. 6. Coronary atherosclerosis. Radiation Dose CTDIVOL = (mGy): DLP = 481.64 (mGy-cm)
[2020-02-05 10:58] LABS: Basophils % 0.3 %; Eosinophils # 0.1 10^3/uL (0.0-0.8); Eosinophils % 0.4 %; Hematocrit 45.1 % (37.0-47.0); Hemoglobin 15.1 g/dL (11.5-15.3); Lymphocytes # 0.9 10^3/uL (0.8-4.8); Lymphocytes % 5.8 %; Mean Corpuscular HGB Conc 33.5 g/dL (30.0-36.0); Mean Corpuscular Hemoglobin 33.4 pg (28.0-34.0); Mean Corpuscular Volume 99.8 fL (81-99); Monocytes # 0.6 10^3/uL (0.2-0.9); Neutrophils # 13.35 10^3/uL (1.8-7.7); Neutrophils % 89.2 %; Nucleated Red Blood Cells % 0 %; Platelet Count 305 10^3/cmm (130-400); Red Blood Count 4.52 10^6/uL (4.1-5.3)
[2020-02-05] MEDS: sodium chloride 0.9% 500 ML IV (11:04)
[2020-02-05] MEDS: ondansetron 2 mg/ML SDV 2 mL 4 MG IVP (11:05)
[2020-02-05 11:10] VITALS: RESP 18
[2020-02-05 11:10] LABS: Add Urine Microscopic? NO
[2020-02-05] MEDS: morphine 4 mg/mL SDV 1 mL 2 MG IVP (11:10)
[2020-02-05 11:14] LABS: Bilirubin Urine Neg (Negative); Blood Urine Neg (Negative); Glucose Urine UA Norm (Normal); Ketones Urine Negative (Negative); Leukocyte Esterase Urine Negative (Negative); Nitrate Urine Negative (Negative); Protein Urine Neg (Negative); Specific Gravity, Urine 1.005 (1.005-1.030); Urine Appearance Clear (CLEAR); Urine Color Yellow (Yellow); Urobilinogen Urine Norm (Negative)
== END 2020-02-05 12:30 | disposition home or self-care (01) ==
PROVIDERS: Emergency Medicine; Emergency Provider Physician Assistant; PCP Family Medicine
DX: R10.32 Left lower quadrant pain (principal); E84.9 Cystic fibrosis, unspecified; Z94.2 Lung transplant status
CPT/HCPCS: 12345; 74176; 81003; 85025; 96361; 96374; 96375; 99283; J2270; J2405; J7040

== ENCOUNTER 2020-04-09 12:18 | Emergency (ER) | payer MEDICAID, SELFPAY ==
[2020-04-09] VITALS (11 sets, daily range): BP systolic 121–144; BP diastolic 69–89; PULSE 68–115; RESP 16–24; TEMP 37; O2SAT 94–98; BMI 20.9
--- NOTE | 2020-04-09 12:40 | XRR_ITS ---
PROCEDURE INFORMATION: Exam: XR Chest, 1 View Exam date and time: 04/09/2020 12:41 PM Age: 39 years old Clinical indication: Cough; Prior surgery; Surgery type: Lung; Additional info: Dyspnea/cough TECHNIQUE: Imaging protocol: XR of the chest Views: 1 view. Total images: 1 COMPARISON: CT chest wo con [id number] 11/09/2019 1:38 PM FINDINGS: Tubes, catheters and devices: EKG leads. Lungs: No visible consolidated alveolar airspace disease. Chronic mild interstitial lung disease to include evidence of chronic bronchiolar disease. Pleural space: Unremarkable. No pleural effusion. No pneumothorax. Heart/Mediastinum: Cardiac structures and configuration stable. Bones/joints: Marked dextroscoliosis of the thoracolumbar spine. Soft tissues: Status post sternotomy chest. XR/XR chest 1V portable [id number] IMPRESSION: Nonacute.
--- NOTE | 2020-04-09 15:21 | CTR_ITS ---
PROCEDURE INFORMATION: Exam: CT Angiography Chest With Contrast Exam date and time: 04/09/2020 4:50 PM Age: 39 years old Clinical indication: Fever and shortness of breath; Prior surgery; Surgery date: 6+ months; Patient HX: HX of cf w lung transplant C/O SOB and fever; Additional info: Dyspnea. R/O pe. TECHNIQUE: Imaging protocol: Computed tomographic angiography of the chest with intravenous contrast. 3D rendering (Not supervised by radiologist): MIP and/or 3D reconstructed images were created by the technologist. Total images: 712 Radiation optimization: All CT scans at this facility use at least one of these dose optimization techniques: automated exposure control; mA and/or kV adjustment per patient size (includes targeted exams where dose is matched to clinical indication); or iterative reconstruction. Contrast material: VISI 320; Contrast volume: 59 ml; Contrast route: INTRAVENOUS (IV); COMPARISON: CT chest wo con [id number] 11/09/2019 1:38 PM RADIATION DOSE METRICS: Total DLP (mGy-cm): 354.28 FINDINGS: Pulmonary arteries: No visible evidence of pulmonary embolism/pulmonary arterial thrombus. Aorta: The thoracic aorta is nonaneurysmal. No visible intimal flap or dissection. Lungs: Subtle ground-glass interstitial lung disease right mid lung which could reflect active interstitial pneumonitis. No visible consolidated alveolar airspace disease. Evidence of mild chronic bronchiolar disease similar to findings of an study of 11/09/2019. Evidence of bilateral lung transplant with postoperative findings. Pleural space: No pneumothorax. No pleural effusion. Heart: Unremarkable. No cardiomegaly. No pericardial effusion. Lymph nodes: No visible active mediastinal or hilar lymphadenopathy. Gallbladder and bile ducts: Status post cholecystectomy. Kidneys and ureters: Nonspecific abnormal appearance to the left kidney within the field of view. Query left pyelonephritis. Bones/joints: Status post sternotomy chest. Scoliotic curvature of the spine. No visible acute osseous abnormality. Soft tissues: Unremarkable. CT/CT angio chest PE protcl [id number] IMPRESSION: 1. No visible evidence of pulmonary embolism/pulmonary arterial thrombus. 2. Subtle focus of ground-glass interstitial lung disease right mid lung which could reflect active interstitial pneumonitis. 3. Evidence of mild chronic bronchiolar disease. 4. Non-specific abnormal appearance to the left kidney within the field of view. Query left pyelonephritis. Radiation Dose CTDIVOL = (mGy): DLP = 354.28 (mGy-cm)
--- NOTE | 2020-04-09 15:21 | CTR_ITS ---
PROCEDURE INFORMATION: Exam: CT Abdomen And Pelvis Without Contrast Exam date and time: 04/09/2020 4:50 PM Age: 39 years old Clinical indication: Abdominal pain; Left; Prior surgery; Surgery date: 6+ months; Surgery type: Hyst, gb, stent; Patient HX: HX of stones w L ureter stent in place C/O L flank pain; Additional info: Flank pain. Left ureteral stent in place. Stones. TECHNIQUE: Imaging protocol: Computed tomography of the abdomen and pelvis without contrast. Total images: 282 Radiation optimization: All CT scans at this facility use at least one of these dose optimization techniques: automated exposure control; mA and/or kV adjustment per patient size (includes targeted exams where dose is matched to clinical indication); or iterative reconstruction. COMPARISON: CT kidney stone [id number] 02/05/2020 10:55 AM RADIATION DOSE METRICS: Total DLP (mGy-cm): 513.76 FINDINGS: Liver: Unremarkable. No mass. Gallbladder and bile ducts: Status post cholecystectomy. Pancreas: The pancreas is not visualized on either presumed surgically absent or has undergone complete fatty replacement. Spleen: Normal. No splenomegaly. Adrenal glands: Adrenal glands unremarkable. Kidneys and ureters: Evidence of a left subcapsular hematoma with associated left renal parenchyma edema. No visible parenchymal laceration. No perinephric fluid collection or hematoma identified. The subcapsular hematoma measures approximately 6.8 cm in length by 1.4 cm in depth by 6 cm. The subcapsular hematoma appears subacute in age with evidence of seromatous degeneration. Also punctate calcifications are present suggesting a more chronic component. Double-J left ureteral stent in place. Tiny foci of nephrolithiasis superior and inferior pole calices left kidney. Rare tiny focus of nephrolithiasis right kidney under 2 mm. No hydronephrosis right kidney. No visible right ureterolithiasis please note there is a phlebolith immediately adjacent to the right ureterovesical junction. This does not represent a UVJ stone. Stomach and bowel: Nonobstructive bowel pattern. No visible evidence of significant adynamic or reactive ileus. Heavy fecal residue consistent with constipation. Appendix: No evidence of appendicitis. Intraperitoneal space: No visible pneumoperitoneum. No visible intraperitoneal ascites. Vasculature: The abdominal aorta is nonaneurysmal. Mild arterial sclerotic disease. Lymph nodes: Stable marginally prominent retroperitoneal periaortic and pericaval lymph nodes. Doubt of clinical significance. Urinary bladder: Urinary bladder unremarkable. No visible bladder stone. Reproductive: Status post hysterectomy. Bones/joints: Marked dextroscoliosis of the thoracolumbar spine. No visible active or acute osseous abnormality. Left total hip prosthesis. Degenerative disc disease L5/S1. Facet arthrosis. Soft tissues: Unremarkable. CT/CT kidney stone [id number] IMPRESSION: 1. Evidence of a subacute left renal subcapsular hematoma is detailed in text above. 2. Double-J left ureteral stent in place. 3. Bilateral small foci of nephrolithiasis, left greater than right. 4. Other nonurgent, nonemergent, chronic, and age related findings as detailed in text above. Radiation Dose CTDIVOL = (mGy): DLP = 513.76 (mGy-cm)
--- NOTE | 2020-04-09 15:30 | ECG_ITS ---
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 Measurements Intervals [place] Rate: 91 P: 54 OK: 149 QRS: -4 QRSD: 95 T: 19 QT: 359 QTc: 443 Interpretive Statements SINUS RHYTHM No previous ECG available for comparison Electronically Signed On 04-09-2020 16:37:50 ADVERTISING STRATEGIST by Joe Trujillo M.D. [email or web address]
--- NOTE | 2020-04-09 15:33 | ED_ITS ---
HPI - SOB/Dyspnea General: Chief Complaint: Shortness of Breath/Dyspnea Stated Complaint: FEVER/SOB/POSS SURGERY RELATED. 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 She was diagnosed with Covid around [facility] and has recovered. And she has been suffering from kidney stones with two stenting procedures on the left side. The most recent stent was placed approximately a week ago and she has passed some stones. She was going to drive to [place] to see her surgeons but they asked that she be evaluated more locally to make sure she is stable for transport to [place]. Since last night she has been complaining of increasing shortness of breath and she had a low-grade fever at home. She also usually sats in the upper 90s but it had dipped to the mid 90s and she is concerned. MD elicited complaint: shortness of breath Context: recent illness Severity: moderate Exacerbating factors: exertion and coughing Associated symptoms: Deny abdominal pain, chest pain, dizziness, extremity pain, hemoptysis, orthopnea, palpitations or polyuria Review of Systems General: Reports: 10 or more systems reviewed and unremarkable except in HPI and below Const: Denies: fatigue Eyes: Denies: change in vision, blurry vision or eye redness ENMT: Denies: throat pain, swelling of lips/tongue, ear or mastoid pain or nasal congestion Card: Denies: chest pain, palpitations, irregular heart rhythm, edema, dyspnea on exertion or orthopnea Resp: Reports: dyspnea; Denies: productive cough, non-productive cough or hemoptysis GI: Denies: abdominal pain, diarrhea or GI cramping : Reports: flank pain (left flank pain); Denies: difficulty voiding, dysuria, urinary frequency or urinary urgency Musc: Denies: neck pain, back pain, extremity pain, joint pain, joint redness, limited range of motion or muscle weakness Skin/Breast: Denies: rash, pruritus, erythema, skin pain or skin tenderness Neuro: Denies: headache(s), numbness in extremities, weakness in extremities, sensory changes, difficulty walking, dizziness, confusion or Slurred speech present Psych: Denies: anxiety or depression Endo: Denies: polyuria All/Imm: Denies: urticaria, throat swelling or tongue swelling PFSH ED PFSH: Medical History (Updated 02/13/20 @ 00:02 by ) CKD (chronic kidney disease) Cystic fibrosis Lung transplant recipient Surgical History S/P cholecystectomy Physical Exam Const: COMMON NORMALS: no acute distress, average body habitus, patient oriented x3, no limitations, healthy appearing, alert and well nourished GENERAL APPEARANCE: cooperative, comfortable, well kempt and well developed ORIENTATION/CONSCIOUSNESS: Yes awake, Yes oriented to person, Yes oriented to place and Yes oriented to time HENMT: COMMON NORMALS: normocephalic, external ears normal and Normal external nose present HEAD & SCALP: normal to inspection and normocephalic NOSE: Normal external nose present EXTERNAL EAR: Yes external ears normal MOUTH: Normal oral and palatal mucosa present THROAT: posterior oropharynx normal Eye: COMMON NORMALS: Equal, round and reactive pupils present and EOMs intact bilaterally GENERAL EYE: appearance normal, both eyes and all related structures PUPIL: Yes Equal, round and reactive pupils present Neck/C-Spine: COMMON NORMALS: full ROM, no lymphadenopathy, no meningeal signs and no JVD GENERAL: Yes normal visual inspection Lymph: LYMPHATIC: no lymphadenopathy noted Chest: COMMONS NORMALS: normal inspection of the chest and normal palpation of entire chest wall Resp: COMMON NORMALS: normal respiratory effort and clear to auscultation bilaterally EFFORT & INSPECTION: Yes able to speak in complete sentences AUSCULTATION: clear to auscultation bilaterally and diminished lung sounds Cardio: COMMON NORMALS: no JVD, regular rate, regular rhythm, S1 normal heart sound present, S2 normal heart sound present and Peripheral pulses 2+ throughout RATE: regular rate RHYTHM: regular rhythm HEART SOUNDS: S1 normal heart sound present and S2 normal heart sound present PERIPHERAL PULSES: Peripheral pulses 2+ throughout GI: COMMON NORMALS: Normal to inspection, nondistended, normoactive bowel sounds present, Soft to palpation, non-tender and no masses INSPECTION: Yes normal to inspection PALPATION: Yes Soft to palpation : BLADDER/KIDNEY EXAM: Yes CVA tenderness (left) Back/Pelvis: COMMON NORMALS: thoracic and lumbar spine normal to inspection, no thoracic nor lumbar tenderness and thoraco-lumbar ROM normal GENERAL BACK: Yes CVA tenderness (left) CVA tenderness: left Extremity: COMMON NORMALS: normal to inspection, full ROM, capillary refill normal, no joint enlargement and no pedal edema GENERAL: Yes normal exam except as noted Neuro: COMMON NORMALS: patient oriented x3, CN's II-XII intact bilaterally, moves all extremities, no focal motor deficits, no sensory deficits noted and gait normal SENSORIUM/ORIENTATION: Yes alert, Yes oriented to person, Yes oriented to place and Yes oriented to time MENINGEAL SIGNS: Yes no meningeal signs Psych: COMMON NORMALS: mental status grossly normal, Normal thought process present, cooperative, normal affect and speech normal APPEARANCE: Yes well kempt ATTITUDE: Yes calm SPEECH: Yes normal speech THOUGHT PROCESS: Normal thought process present Skin: COMMON NORMALS: no rashes or lesions noted GENERAL SKIN EXAM: no rashes or lesions noted Course Vital Signs: Vital signs: Vital Signs Temperature 98.6 F 04/09/20 12:32 Pulse Rate 101 H 04/09/20 23:20 Respiratory Rate 24 H 04/09/20 23:20 Blood Pressure 122/81 04/09/20 23:20 Pulse Oximetry 98 04/09/20 23:20 MDM - SOB/Dyspnea MDM Narrative: Medical decision making narrative: Patient is a 39-year-old female with cystic fibrosis and bilateral lung lobe transplants. She also had a left ureteral stent placed a week ago. she comes in complaining of low-grade fever shortness of breath since last night and is worried because of her lung transplant history. Testing shows she has a UTI and azithromycin and imipenem were started as well as a liter of fluids given. She felt better after the fluids. Discussed with her transplant surgeon Dr. Birch who accepts transfer to their facility for further treatment. The patient is amenable to EMS transport. Also noted in her CT is a hematoma to the left kidney which is subcapsular in 30 to 40% of the kidney mass. She says she fell a month or 2 ago and it could be possibly related to that. The CT says it is subacute so unsure of the exact timing but they will also evaluate that. Right lung shows interstitial pneumonitis which is likely from her recovering from Covid a month ago. Covid and flu swabs were negative and she is stable for transfer. Lab Data: Labs: Lab Results 04/09/20 04/09/20 04/09/20 Range/Units 15:34 15:34 16:10 WBC 17.0 H (4.0-10.0) 10^3/ uL RBC 3.44 L (4.1-5.3) 10^6/u L Hgb 10.8 L (11.5-15.3) g/dL Hct 33.0 L (37.0-47.0) % MCV 95.9 (81-99) fL MCH 31.4 (28.0-34.0) pg MCHC 32.7 (30.0-36.0) g/dL RDW 16.5 H (12.1-15.1) % Plt Count 268 (130-400) 10^3/c mm MPV 11.1 H (7.4-10.4) fL Neut % (Auto) 90.5 % Lymph % (Auto) 3.6 % [place] % (Auto) 5.1 % Eos % (Auto) 0.0 % Baso % (Auto) 0.3 % Neut # (Auto) 15.42 H (1.8-7.7) 10^3/u L Lymph # (Auto) 0.6 L (0.8-4.8) 10^3/u L [place] # (Auto) 0.9 (0.2-0.9) 10^3/u L Eos # (Auto) 0.0 (0.0-0.8) 10^3/u L Baso # (Auto) 0.1 (0.0-0.1) 10^3/u L Nucleated RBC % (a uto) 0 % Nucleated RBCs # 0.0 /100WBC Sodium (136-145) mmol/L Potassium (3.5-5.1) mmol/L Chloride (98-107) mmol/L Carbon Dioxide (22-29) mmol/L Anion Gap (5-19) BUN (6-20) mg/dL Creatinine (0.5-0.9) mg/dL GFR Calculation (90-130) mL/min Glucose (65-115) mg/dL Calculated Osmolal ity (285-295) mOsm/k g Lactate (0.5-2.2) mmol/L Calcium (8.5-10.5) mg/dL Total Bilirubin (0.15-1.2) mg/dL AST (0-32) U/L ALT (0-33) U/L Alkaline Phosphata se (35-105) IU/L Troponin T Baselin e (0-10) ng/L NT-Pro-B Natriuret Pep (0-125) pg/mL Total Protein (6.6-8.7) g/dL Albumin (3.5-5.2) g/dL Globulin (1.3-4.6) g/dL Lipase (13-60) U/L HCG, Qual Negative (Negative) Urine Color Dark yellow (Yellow) Urine Appearance Hazy A (CLEAR) Urine pH 5 (5-7) Ur Specific Gravit y 1.020 (1.005-1.030) Urine Protein 2+ H (Negative) Urine Glucose (UA) 1+ (Normal) Urine Ketones Negative (Negative) Urine Blood 3+ H (Negative) Urine Nitrate Negative (Negative) Urine Bilirubin Neg (Negative) Urine Urobilinogen Norm (Negative) mg/dL Ur Leukocyte Maty ase 2+ H (Negative) Urine RBC >100 H (0-2) /hpf Urine WBC 55-80 H (0-5) /hpf Ur Squamous Epith Cells 15-25 H (0-5) /hpf Amorphous Sediment Not Reportable Urine Bacteria 1+ H (NONE) /hpf Influenza Type A A g (Negative) Influenza Type B A g (Negative) SARS-CoV-2 Ag (Rap id) (Negative) 04/09/20 04/09/20 04/09/20 Range/Units 16:10 16:10 16:10 WBC (4.0-10.0) 10^3/ uL RBC (4.1-5.3) 10^6/u L Hgb (11.5-15.3) g/dL Hct (37.0-47.0) % MCV (81-99) fL MCH (28.0-34.0) pg MCHC (30.0-36.0) g/dL RDW (12.1-15.1) % Plt Count (130-400) 10^3/c mm MPV (7.4-10.4) fL Neut % (Auto) % Lymph % (Auto) % [place] % (Auto) % Eos % (Auto) % Baso % (Auto) % Neut # (Auto) (1.8-7.7) 10^3/u L Lymph # (Auto) (0.8-4.8) 10^3/u L [place] # (Auto) (0.2-0.9) 10^3/u L Eos # (Auto) (0.0-0.8) 10^3/u L Baso # (Auto) (0.0-0.1) 10^3/u L Nucleated RBC % (a uto) % Nucleated RBCs # /100WBC Sodium 129 L (136-145) mmol/L Potassium 3.4 L (3.5-5.1) mmol/L Chloride 94 L (98-107) mmol/L Carbon Dioxide 20 L (22-29) mmol/L Anion Gap 18.4 (5-19) BUN 12 (6-20) mg/dL Creatinine 1.4 H (0.5-0.9) mg/dL GFR Calculation 41.9 L (90-130) mL/min Glucose 357 H (65-115) mg/dL Calculated Osmolal ity 282 L (285-295) mOsm/k g Lactate 2.4 H (0.5-2.2) mmol/L Calcium 8.0 L (8.5-10.5) mg/dL Total Bilirubin 0.3 (0.15-1.2) mg/dL AST 25 (0-32) U/L ALT 28 (0-33) U/L Alkaline Phosphata se 202 H (35-105) IU/L Troponin T Baselin e 9 (0-10) ng/L NT-Pro-B Natriuret Pep 863 H (0-125) pg/mL Total Protein 5.2 L (6.6-8.7) g/dL Albumin 3.1 L (3.5-5.2) g/dL Globulin 2.1 (1.3-4.6) g/dL Lipase 5 L (13-60) U/L HCG, Qual (Negative) Urine Color (Yellow) Urine Appearance (CLEAR) Urine pH (5-7) Ur Specific Gravit y (1.005-1.030) Urine Protein (Negative) Urine Glucose (UA) (Normal) Urine Ketones (Negative) Urine Blood (Negative) Urine Nitrate (Negative) Urine Bilirubin (Negative) Urine Urobilinogen (Negative) mg/dL Ur Leukocyte Maty ase (Negative) Urine RBC (0-2) /hpf Urine WBC (0-5) /hpf Ur Squamous Epith Cells (0-5) /hpf Amorphous Sediment Urine Bacteria (NONE) /hpf Influenza Type A A g (Negative) Influenza Type B A g (Negative) SARS-CoV-2 Ag (Rap id) (Negative) 04/09/20 04/09/20 Range/Units 16:15 19:17 WBC (4.0-10.0) 10^3/ uL RBC (4.1-5.3) 10^6/u L Hgb (11.5-15.3) g/dL Hct (37.0-47.0) % MCV (81-99) fL MCH (28.0-34.0) pg MCHC (30.0-36.0) g/dL RDW (12.1-15.1) % Plt Count (130-400) 10^3/c mm MPV (7.4-10.4) fL Neut % (Auto) % Lymph % (Auto) % [place] % (Auto) % Eos % (Auto) % Baso % (Auto) % Neut # (Auto) (1.8-7.7) 10^3/u L Lymph # (Auto) (0.8-4.8) 10^3/u L [place] # (Auto) (0.2-0.9) 10^3/u L Eos # (Auto) (0.0-0.8) 10^3/u L Baso # (Auto) (0.0-0.1) 10^3/u L Nucleated RBC % (a uto) % Nucleated RBCs # /100WBC Sodium (136-145) mmol/L Potassium (3.5-5.1) mmol/L Chloride (98-107) mmol/L Carbon Dioxide (22-29) mmol/L Anion Gap (5-19) BUN (6-20) mg/dL Creatinine (0.5-0.9) mg/dL GFR Calculation (90-130) mL/min Glucose (65-115) mg/dL Calculated Osmolal ity (285-295) mOsm/k g Lactate (0.5-2.2) mmol/L Calcium (8.5-10.5) mg/dL Total Bilirubin (0.15-1.2) mg/dL AST (0-32) U/L ALT (0-33) U/L Alkaline Phosphata se (35-105) IU/L Troponin T Baselin e (0-10) ng/L NT-Pro-B Natriuret Pep (0-125) pg/mL Total Protein (6.6-8.7) g/dL Albumin (3.5-5.2) g/dL Globulin (1.3-4.6) g/dL Lipase (13-60) U/L HCG, Qual (Negative) Urine Color (Yellow) Urine Appearance (CLEAR) Urine pH (5-7) Ur Specific Gravit y (1.005-1.030) Urine Protein (Negative) Urine Glucose (UA) (Normal) Urine Ketones (Negative) Urine Blood (Negative) Urine Nitrate (Negative) Urine Bilirubin (Negative) Urine Urobilinogen (Negative) mg/dL Ur Leukocyte Maty ase (Negative) Urine RBC (0-2) /hpf Urine WBC (0-5) /hpf Ur Squamous Epith Cells (0-5) /hpf Amorphous Sediment Urine Bacteria (NONE) /hpf Influenza Type A A g Negative (Negative) Influenza Type B A g Negative (Negative) SARS-CoV-2 Ag (Rap id) Negative (Negative) Discharge Plan Discharge Patient Disposition: Xfer Other Condition: Stable Referrals: Scottie Herrera MD [Primary Care Provider] - Activity Restrictions/Additional Instructions: Transfer to [facility] Dr. Birch accepting physician. 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
[2020-04-09 16:13] LABS: Blood Urine 3+ (Negative); Glucose Urine UA 1+ (Normal); Ketones Urine Negative (Negative); Protein Urine 2+ (Negative); Urine Appearance Hazy (CLEAR); Urine Color Dark Yellow (Yellow); pH Urine 5 (5-7)
[2020-04-09 16:14] LABS: Add Urine Microscopic? YES; Bilirubin Urine Neg (Negative); Leukocyte Esterase Urine 2+ (Negative); Nitrate Urine Negative (Negative); Urobilinogen Urine Norm (Negative)
[2020-04-09 16:21] LABS: Bacteria Urine 1+ /hpf; RBC Urine >100 /hpf (0-2); Squamous Epithelial Cell Urine 15-25 /hpf (0-5); WBC Urine 55-80 /hpf (0-5)
[2020-04-09 16:22] LABS: Add Urine Culture? No
[2020-04-09 16:30] LABS: Basophils # 0.1 10^3/uL (0.0-0.1); Basophils % 0.3 %; Hemoglobin 10.8 g/dL (11.5-15.3); Lymphocytes # 0.6 10^3/uL (0.8-4.8); Lymphocytes % 3.6 %; Mean Corpuscular HGB Conc 32.7 g/dL (30.0-36.0); Mean Corpuscular Hemoglobin 31.4 pg (28.0-34.0); Mean Corpuscular Volume 95.9 fL (81-99); Mean Platelet Volume 11.1 fL (7.4-10.4); Monocytes # 0.9 10^3/uL (0.2-0.9); Monocytes % 5.1 %; Neutrophils # 15.42 10^3/uL (1.8-7.7); Neutrophils % 90.5 %; Nucleated Red Blood Cells % 0 %; Platelet Count 268 10^3/cmm (130-400); Red Blood Count 3.44 10^6/uL (4.1-5.3); Red Cell Distribution Width 16.5 % (12.1-15.1)
[2020-04-09 16:32] LABS: HCG Qualitative Urine. Negative (Negative)
[2020-04-09 16:50] LABS: Lactate (Lactic Acid level) 2.4 mmol/L (0.5-2.2)
[2020-04-09 16:51] LABS: Troponin(5th) Baseline 9 ng/L (0-10)
[2020-04-09] MEDS: albuterol 8 gm MDI 2 PUFF INHALATION (16:57)
[2020-04-09] MEDS: azithromycin 500 MG in sodium chloride 0.9% 250 ML 250 MG IV (17:00)
[2020-04-09] MEDS: sodium chloride 0.9% 1,000 ML 999 ML IV (17:00)
[2020-04-09 17:01] LABS: Alanine Aminotransferase 28 U/L (0-33); Albumin Level 3.1 g/dL (3.5-5.2); Alkaline Phosphatase 202 IU/L (35-105); Anion Gap 18.4 (5-19); Aspartate Amino Transferase 25 U/L (0-32); Blood Urea Nitrogen 12 mg/dL (6-20); Carbon Dioxide 20 mmol/L (22-29); Chloride 94 mmol/L (98-107); Globulin 2.1 g/dL (1.3-4.6); Glomerular Filtration Rate 41.9 mL/min (90-130); Glucose 357 mg/dL (65-115); Lipase 5 U/L (13-60); NT Pro B Type Natriuretic Pept 863 pg/mL (0-125); Osmolality Calculated 282 mOsm/kg (285-295); Potassium 3.4 mmol/L (3.5-5.1); Sodium 129 mmol/L (136-145); Total Bilirubin 0.3 mg/dL (0.15-1.2); Total Protein 5.2 g/dL (6.6-8.7)
[2020-04-09 17:06] LABS: Influenza A by IFA Negative (Negative); Influenza B by IFA Negative (Negative)
[2020-04-09] MEDS: iodixanol 320 mg/mL 100mL Btl IV (17:28)
[2020-04-09 19:49] LABS: SARS Covid-2 Antigen Negative (Negative)
== END 2020-04-10 00:07 | disposition other institution (70) ==
PROVIDERS: Emergency Provider Family Medicine; PCP Family Medicine
DX: R06.02 Shortness of breath (principal); E84.9 Cystic fibrosis, unspecified; Z94.2 Lung transplant status
CPT/HCPCS: 12345; 71045; 71275; 74176; 80053; 81001; 81025; 83605; 83690; 83880; 84484; 85025; 87426; 87804; 93005; 94640; 96365; 96367; 99283; 99285; J0456; J0743; J3535; J7030; J7050; Q9967

== ENCOUNTER 2020-07-20 10:36 | Emergency (ER) | payer MEDICAID, SELFPAY ==
[2020-07-20 10:38] VITALS: BP 192/104; PULSE 93; RESP 18; O2SAT 100; BMI 21.5
--- NOTE | 2020-07-20 10:39 | CT_ITS ---
WS: [id number] CT scan of the head, 07/20/2020 Clinical Data: HEADACHE Comparison: CT head, 06/17/2017 P DLP: 728.[address] scans at [facility] use at least one of these dose optimization techniques: automat ed exposure control; mA and/or kV adjustment per patient size (includes targeted exams where dose is matched to clinical indication); or iterative reconstruction. Findings: The ventricular system is normal without shift. No recent infarct or hemorrhage is seen. There are no abnormal intracerebral masses. The cerebellum and brainstem are not remarkable. Bony windows of the skull and skull base show no fractures or erosions. The mastoid air cells, planning intern al auditory canals, sella turcica and intraorbital contents are unremarkable. There is minimal mucope riosteal thickening of the posterior ethmoid sinuses. CT/CT head wo con* [id number] Impression: Negative CT scan of the head
--- NOTE | 2020-07-20 10:40 | W.ED.GENADLT ---
HPI - General Adult General: Chief complaint: Dizziness Stated complaint: RXN TO COVID SHOT Time Seen by Provider: 07/20/20 10:37 History of Present Illness: HPI narrative: This patient is a 40-year-old female who presents to the emergency department after having a reaction to her second Covid shot. Patient states she feels disconnected in her head blurry vision and fullness in her ears. This happened about 10 minutes after getting a second injection during her shot time weight. Patient did receive Benadryl via the vaccine clinic. Patient currently does take chronic steroids. Patient has a history of cystic fibrosis and has had a lung transplant. Patient denies any shortness of breath. Will do medical evaluation treat as needed Onset (ago): minute(s) Associated symptoms: Reports headache(s); Deny chest pain, dyspnea, nausea, rash, palpitations or vomiting Review of Systems General: Reports: 10 or more systems reviewed and unremarkable except in HPI and below Const: Denies: fever(s), chills, body aches or fatigue Eyes: Denies: change in vision or blurry vision ENMT: Denies: throat pain, hoarseness or mouth pain Card: Denies: chest pain, palpitations, irregular heart rhythm, edema, swelling of feet/ankles or lightheadedness Resp: Denies: dyspnea, productive cough, non-productive cough, wheezing or pain on inspiration GI: Denies: abdominal pain, nausea or vomiting : Denies: flank pain, difficulty voiding, dysuria, urinary frequency, urinary urgency or urinary hesitancy Musc: Denies: neck pain, back pain, extremity pain, extremity swelling, joint pain, joint swelling, joint redness, joint warmth or limited range of motion Skin/Breast: Denies: rash, pruritus, erythema or skin tenderness Neuro: Reports: headache(s) and dizziness; Denies: numbness in extremities or weakness in extremities Psych: Denies: anxiety or depression PFSH ED PFSH: Medical History (Updated 07/20/20 @ 12:25 by Kaushik Egan MD) CKD (chronic kidney disease) Cystic fibrosis Lung transplant recipient Surgical History S/P cholecystectomy Physical Exam Const: COMMON NORMALS: no acute distress, average body habitus, patient oriented x3, no limitations, healthy appearing, alert and well nourished HENMT: COMMON NORMALS: normocephalic, atraumatic, hearing grossly normal bilaterally, external ears normal, EAC's normal, TM's normal bilaterally, Normal external nose present, Normal nasal mucous membranes and turbinates present, moist oral mucous membranes, oropharynx normal, dentition normal and gingiva normal HEAD & SCALP: normocephalic and atraumatic NOSE: Normal external nose present and Normal nasal mucous membranes and turbinates present EXTERNAL EAR: Yes external ears normal EXTERNAL AUDITORY CANAL: EAC's normal TYMPANIC MEMBRANE: TM's normal bilaterally Neck/C-Spine: COMMON NORMALS: full ROM, no lymphadenopathy, supple, no meningeal signs, no JVD, Thyroid normal and No carotid bruits THYROID: Thyroid normal Chest: COMMONS NORMALS: normal inspection of the chest, normal palpation of entire chest wall, normal inspection of the breasts and normal palpation of the breasts Breast/axilla inspection: Yes normal inspection of the breasts BREAST/AXILLA PALPATION: Yes normal palpation of the breasts Resp: COMMON NORMALS: normal respiratory effort, No retractions, No use of accessory muscles, clear to auscultation bilaterally and percussion normal AUSCULTATION: clear to auscultation bilaterally PERCUSSION: percussion normal Cardio: COMMON NORMALS: no JVD, regular rate, regular rhythm, S1 normal heart sound present, S2 normal heart sound present, No gallops present (Cardio), No clicks present (Cardio), No murmurs present (Cardio), No rub (Cardio) and Peripheral pulses 2+ throughout RATE: regular rate RHYTHM: regular rhythm HEART SOUNDS: S1 normal heart sound present and S2 normal heart sound present PERIPHERAL PULSES: Peripheral pulses 2+ throughout GI: COMMON NORMALS: Normal to inspection, nondistended, normoactive bowel sounds present, Soft to palpation, non-tender, No hepatosplenomegaly present, no masses and no bruits PALPATION: Yes Soft to palpation and Yes No hepatosplenomegaly present : COMMON NORMALS: Yes no CVA tenderness, Yes normal external appearance, Yes normal appearance of the vagina, Yes normal appearance of the cervix, Yes normal bimanual exam, Yes No adnexal tenderness and Yes no masses BLADDER/KIDNEY EXAM: Yes no CVA tenderness BIMANUAL EXAM - VAGINA & UTERUS: Yes normal bimanual exam Back/Pelvis: COMMON NORMALS: no CVA tenderness, thoracic and lumbar spine normal to inspection, no thoracic nor lumbar tenderness, thoraco-lumbar ROM normal and straight leg raise negative bilaterally Extremity: COMMON NORMALS: normal to inspection, full ROM, capillary refill normal, no joint enlargement, no clubbing, cyanosis or edema, no calf tenderness and no pedal edema Neuro: COMMON NORMALS: patient oriented x3 SENSORIUM/ORIENTATION: Yes alert MENINGEAL SIGNS: Yes no meningeal signs Course Reevaluation(s): Reevaluation #1: Patient states all symptoms have resolved. Patient has received a total of 2 vaccinations for Covid. Patient appears to be stable patient has no complaints encourage p.o. fluids continue all home medications. Tylenol Motrin as needed as needed. Return to the emergency department symptoms return. Follow-up with PCP in 2 to 3 days. Time: 12:23 Vital Signs: Vital signs: Vital Signs Pulse Rate 79 07/20/20 11:09 Respiratory Rate 18 07/20/20 11:09 Blood Pressure 190/103 07/20/20 11:09 Pulse Oximetry 100 07/20/20 11:09 MDM - General Adult MDM Narrative: Medical decision making narrative: Patient presented to the emergency department complaining of vertigo type like symptoms and dizziness related to Covid vaccine. Patient has a history of cystic fibrosis. Has had a double lung transplant. Medical Records: Attestation: I reviewed the patient's medical records. Lab Data: Attestation: I reviewed the patient's lab results. Labs: Lab Results 07/20/20 07/20/20 Range/Units 11:17 11:17 WBC 9.4 (4.0-10.0) 10^3/ uL RBC 5.35 H (4.1-5.3) 10^6/u L Hgb 16.2 H (11.5-15.3) g/dL Hct 48.8 H (37.0-47.0) % MCV 91.2 (81-99) fL MCH 30.3 (28.0-34.0) pg MCHC 33.2 (30.0-36.0) g/dL RDW 14.2 (12.1-15.1) % Plt Count 372 (130-400) 10^3/c mm MPV 10.4 (7.4-10.4) fL Neut % (Auto) 91.6 % Lymph % (Auto) 6.0 % [place] % (Auto) 1.7 % Eos % (Auto) 0.0 % Baso % (Auto) 0.1 % Neut # (Auto) 8.57 H (1.8-7.7) 10^3/u L Lymph # (Auto) 0.6 L (0.8-4.8) 10^3/u L [place] # (Auto) 0.2 (0.2-0.9) 10^3/u L Eos # (Auto) 0.0 (0.0-0.8) 10^3/u L Baso # (Auto) 0.0 (0.0-0.1) 10^3/u L Nucleated RBC % (a uto) 0 % Nucleated RBCs # 0.0 /100WBC Sodium 131 L (136-145) mmol/L Potassium 3.1 L (3.5-5.1) mmol/L Chloride 93 L (98-107) mmol/L Carbon Dioxide 25 (22-29) mmol/L Anion Gap 16.0 (5-19) BUN 21 H (6-20) mg/dL Creatinine 1.1 H (0.5-0.9) mg/dL GFR Calculation 55.0 L (90-130) mL/min Glucose 198 H (65-115) mg/dL Calculated Osmolal ity 281 L (285-295) mOsm/k g Calcium 9.2 (8.5-10.5) mg/dL Total Bilirubin 0.3 (0.15-1.2) mg/dL AST 78 H (0-32) U/L ALT 80 H (0-33) U/L Alkaline Phosphata se 212 H (35-105) IU/L Total Protein 8.0 (6.6-8.7) g/dL Albumin 4.5 (3.5-5.2) g/dL Globulin 3.5 (1.3-4.6) g/dL Imaging Data^: CT Head: Attestation: I personally reviewed and interpreted this imaging study as follows: Radiologist's impression: Negative for acute findings EKG Data^: EKG 1: Attestation: I personally reviewed and interpreted this EKG as follows: EKG interpretation date: 07/20/20 EKG interpretation time: 10:47 Prior EKG tracings: not available for review Interpretation: Normal sinus rhythm heart rate 80 Computer generated interpretation: Head CT 07/20/20 10:39 Impression: Negative CT scan of the head Discharge Plan Discharge Patient Disposition: Home Clinical Impression: Post-vaccination reaction, Cystic fibrosis, Lung transplant recipient Condition: Stable Prescriptions: No Action oxycodone 5 mg Tablet 5 mg PO Q4H PRN (Reason: Pain) RF: 0 multivitamin [Multiple Vitamins] Tablet 1 tab PO DAILY RF: 0 cetirizine [Zyrtec] 10 mg Tablet 10 mg PO DAILY RF: 0 azithromycin 250 mg Tablet See Rx Instructions .ROUTE .COMPLEX RF: 0 mycophenolate mofetil 250 mg Capsule 750 mg PO BID RF: 0 prednisone 5 mg Tablet 5 mg PO QAM RF: 0 valacyclovir 500 mg Tablet 500 mg PO DAILY RF: 0 sulfamethoxazole-trimethoprim [Bactrim DS] 800-160 mg Tablet See Rx Instructions .ROUTE .COMPLEX RF: 0 tramadol [Ultram] 50 mg Tablet 50 - 100 mg PO QID PRN (Reason: Pain) RF: 0 pantoprazole [Protonix] 40 mg Tablet,Delayed Release (Dr/Ec) 40 mg PO DAILY RF: 0 vitamin B complex Tablet 1 tab PO DAILY RF: 0 tacrolimus 0.5 mg Capsule See Rx Instructions .ROUTE .COMPLEX RF: 0 topiramate [Topamax] 50 mg Tablet 75 mg PO BEDTIME RF: 0 pregabalin [Lyrica] 200 mg Capsule 200 mg PO BID RF: 0 Creon 24,000-76,000 -120,000 unit Capsule,Delayed Release(Dr/Ec) See Rx Instructions .ROUTE .COMPLEX RF: 0 Viibryd 20 mg Tablet 20 mg PO DAILY RF: 0 Discharge Orders: Discharge ED (Routine); Ordered 07/20/20 Ordered By: Kaushik Egan Referrals: Scottie Herrera MD [Primary Care Provider] - Discharge Diet: Advance as tolerated Discharge Activity: Resume usual activity Patient Instructions: Opioid Safety Activity Restrictions/Additional Instructions: encourage p.o. fluids continue all home medications. Tylenol Motrin as needed as needed. Return to the emergency department symptoms return. Follow-up with PCP in 2 to 3 days. Coding Level of Care Code ED Supervisor Extruding Department for Chg Fwd Exam Comprehensive
[2020-07-20 11:09] VITALS: BP 190/103; PULSE 79; RESP 18; O2SAT 100
[2020-07-20] MEDS: sodium chloride 0.9% 500 ML IV (11:18)
[2020-07-20 11:36] LABS: Basophils % 0.1 %; Hematocrit 48.8 % (37.0-47.0); Hemoglobin 16.2 g/dL (11.5-15.3); Lymphocytes # 0.6 10^3/uL (0.8-4.8); Mean Corpuscular HGB Conc 33.2 g/dL (30.0-36.0); Mean Corpuscular Hemoglobin 30.3 pg (28.0-34.0); Mean Corpuscular Volume 91.2 fL (81-99); Mean Platelet Volume 10.4 fL (7.4-10.4); Monocytes # 0.2 10^3/uL (0.2-0.9); Monocytes % 1.7 %; Neutrophils # 8.57 10^3/uL (1.8-7.7); Neutrophils % 91.6 %; Nucleated Red Blood Cells % 0 %; Platelet Count 372 10^3/cmm (130-400); Red Blood Count 5.35 10^6/uL (4.1-5.3); Red Cell Distribution Width 14.2 % (12.1-15.1); White Blood Count 9.4 10^3/uL (4.0-10.0)
[2020-07-20 12:01] LABS: Alanine Aminotransferase 80 U/L (0-33); Albumin Level 4.5 g/dL (3.5-5.2); Alkaline Phosphatase 212 IU/L (35-105); Aspartate Amino Transferase 78 U/L (0-32); Blood Urea Nitrogen 21 mg/dL (6-20); Calcium 9.2 mg/dL (8.5-10.5); Carbon Dioxide 25 mmol/L (22-29); Chloride 93 mmol/L (98-107); Globulin 3.5 g/dL (1.3-4.6); Glucose 198 mg/dL (65-115); Osmolality Calculated 281 mOsm/kg (285-295); Sodium 131 mmol/L (136-145); Total Bilirubin 0.3 mg/dL (0.15-1.2)
[2020-07-20 12:07] LABS: Potassium 3.1 mmol/L (3.5-5.1)
[2020-07-20 12:40] VITALS: BP 143/85; PULSE 82; O2SAT 99
== END 2020-07-20 12:45 | disposition home or self-care (01) ==
PROVIDERS: Emergency Provider Emergency Medicine; PCP Family Medicine
DX: T88.7XXA Unspecified adverse effect of drug or medicament, initial encounter (principal); T50.B95A Adverse effect of other viral vaccines, initial encounter; E84.9 Cystic fibrosis, unspecified; Z94.2 Lung transplant status
CPT/HCPCS: 70450; 80053; 85025; 96360; 99283; J7040

== ENCOUNTER 2020-09-25 10:27 | Emergency (ER) | payer MEDICAID, SELFPAY ==
[2020-09-25 10:31] VITALS: BP 161/122; PULSE 90; RESP 17; TEMP 36.6; O2SAT 99; BMI 21.4
--- NOTE | 2020-09-25 10:38 | XRR_ITS ---
PROCEDURE INFORMATION: Exam: XR Chest Exam date and time: 09/25/2020 10:38 AM Age: 40 years old Clinical indication: Chest wall pain; Prior surgery; Surgery type: Mauirce lung transplant; Additional info: SOB TECHNIQUE: Imaging protocol: XR of the chest. Views: 2 views. COMPARISON: CR XR chest 1V portable [id number] 04/09/2020 3:22 PM FINDINGS: Lungs: Stable COPD with stable postoperative changes consistent with history of lung transplant. Pleural spaces: Unremarkable. No pleural effusion. No pneumothorax. Heart/Mediastinum: Unremarkable. No cardiomegaly. Bones/joints: Dextroscoliosis. Previous sternotomy. XR/XR chest 2V* [id number] IMPRESSION: Stable COPD with stable postoperative changes consistent with history of lung transplant.
--- NOTE | 2020-09-25 10:40 | ED_ITS ---
HPI - SOB/Dyspnea General: Chief Complaint: Shortness of Breath/Dyspnea Stated Complaint: sob Time Seen by Provider: 09/25/20 10:34 History of Present Illness: HPI Narrative: This patient is a 40-year-old female who presents to the emergency department with complaint of right chest wall pain. Patient states that it hurts when she tries to take a deep breath or cough. Patient does have a history of cystic fibrosis and had a double lung transplant. Patient has no fever. Pulse ox is 100% on room air. Patient states she has been hurting in this location for the past 2 days. Patient is currently on Augmentin for upper respiratory infection. Patient states the area in question hurts with palpation. Onset (ago): day(s) Associated symptoms: Reports chest pain; Deny abdominal pain, extremity pain, fever(s), lightheadedness, nausea, palpitations or vomiting Review of Systems General: Reports: 10 or more systems reviewed and unremarkable except in HPI and below Const: Denies: fever(s), chills, body aches or fatigue Eyes: Denies: change in vision or blurry vision ENMT: Denies: throat pain, hoarseness or mouth pain Card: Reports: chest pain; Denies: palpitations, irregular heart rhythm, edema, swelling of feet/ankles or lightheadedness Resp: Reports: non-productive cough; Denies: dyspnea, productive cough, wheezing or pain on inspiration GI: Denies: abdominal pain, nausea or vomiting : Denies: flank pain, difficulty voiding, dysuria, urinary frequency, urinary urgency or urinary hesitancy Musc: Denies: neck pain, back pain, extremity pain, extremity swelling, joint pain, joint swelling, joint redness, joint warmth or limited range of motion Skin/Breast: Denies: rash, pruritus, erythema or skin tenderness Neuro: Denies: headache(s), numbness in extremities or weakness in extremities Psych: Denies: anxiety or depression PFSH ED PFSH: Medical History (Updated 09/25/20 @ 12:21 by Kaushik Egan MD) CKD (chronic kidney disease) Cystic fibrosis Lung transplant recipient Surgical History S/P cholecystectomy Physical Exam Const: COMMON NORMALS: no acute distress, average body habitus, patient oriented x3, no limitations, healthy appearing, alert and well nourished HENMT: COMMON NORMALS: normocephalic, atraumatic, hearing grossly normal bilaterally, external ears normal, EAC's normal, TM's normal bilaterally, Normal external nose present, Normal nasal mucous membranes and turbinates present, moist oral mucous membranes, oropharynx normal, dentition normal and gingiva normal HEAD & SCALP: normocephalic and atraumatic NOSE: Normal external nose present and Normal nasal mucous membranes and turbinates present EXTERNAL EAR: Yes external ears normal EXTERNAL AUDITORY CANAL: EAC's normal TYMPANIC MEMBRANE: TM's normal bilaterally Neck/C-Spine: COMMON NORMALS: full ROM, no lymphadenopathy, supple, no meningeal signs, no JVD, Thyroid normal and No carotid bruits THYROID: Thyroid normal Chest: COMMONS NORMALS: normal inspection of the chest, normal palpation of entire chest wall, normal inspection of the breasts and normal palpation of the breasts CHEST: Yes localized rib tenderness with anteroposterior compression Breast/axilla inspection: Yes normal inspection of the breasts BREAST/AXILL A PALPATION: Yes normal palpation of the breasts Resp: COMMON NORMALS: normal respiratory effort, No retractions, No use of accessory muscles, clear to auscultation bilaterally and percussion normal AUSCULTATION: clear to auscultation bilaterally PERCUSSION: percussion normal Cardio: COMMON NORMALS: no JVD, regular rate, regular rhythm, S1 normal heart sound present, S2 normal heart sound present, No gallops present (Cardio), No clicks present (Cardio), No murmurs present (Cardio), No rub (Cardio) and Peripheral pulses 2+ throughout RATE: regular rate RHYTHM: regular rhythm HEART SOUNDS: S1 normal heart sound present and S2 normal heart sound present PERIPHERAL PULSES: Peripheral pulses 2+ throughout GI: COMMON NORMALS: Normal to inspection, nondistended, normoactive bowel sounds present, Soft to palpation, non-tender, No hepatosplenomegaly present, no masses and no bruits PALPATION: Yes Soft to palpation and Yes No hepatosplenomegaly present : COMMON NORMALS: Yes no CVA tenderness BLADDER/KIDNEY EXAM: Yes no CVA tenderness Back/Pelvis: COMMON NORMALS: no CVA tenderness, thoracic and lumbar spine normal to inspection, no thoracic nor lumbar tenderness, thoraco-lumbar ROM normal and straight leg raise negative bilaterally Extremity: COMMON NORMALS: normal to inspection, full ROM, capillary refill normal, no joint enlargement, no clubbing, cyanosis or edema, no calf tenderness and no pedal edema Neuro: COMMON NORMALS: patient oriented x3 SENSORIUM/ORIENTATION: Yes alert MENINGEAL SIGNS: Yes no meningeal signs Course Reevaluation(s): Reevaluation #1: Negative for any acute findings. Patient states pleuritic chest pain is resolved after Tessalon Perles. Patient will be discharged home continue home medications. Patient will be given a prescription for Tessalon Perles for pleuritic chest pain. Patient is to follow-up with her wire drawer at [facility] as instructed. Patient is discharged home with Time: 12:18 Vital Signs: Vital signs: Vital Signs Temperature 97.8 F 09/25/20 10:31 Pulse Rate 85 09/25/20 12:06 Respiratory Rate 16 09/25/20 12:06 Blood Pressure 130/82 09/25/20 12:06 Pulse Oximetry 98 09/25/20 12:06 MDM - SOB/Dyspnea MDM Narrative: Medical decision making narrative: Negative for any acute findings. Patient states pleuritic chest pain is resolved after Tessalon Perles. Patient will be discharged home continue home medications. Patient will be given a prescription for Tessalon Perles for pleuritic chest pain. Patient is to follow-up with her wire drawer at [facility] as instructed. Patient is discharged home with Differential Diagnosis: Shortness of Breath Differential Diagnosis: Likely acute exacerbation of chronic obstructive airways disease, congestive heart failure, community acquired pneumonia, asthma with exacerbation and pulmonary embolism Medical Records: Attestation: I reviewed the patient's medical records. Lab Data: Attestation: I reviewed the patient's lab results. Labs: Lab Results 09/25/20 09/25/20 09/25/20 Range/Units 11:00 11:00 11:40 WBC 7.0 (4.0-10.0) 10^3/ uL RBC 4.54 (4.1-5.3) 10^6/u L Hgb 14.7 (11.5-15.3) g/dL Hct 44.7 (37.0-47.0) % MCV 98.5 (81-99) fL MCH 32.4 (28.0-34.0) pg MCHC 32.9 (30.0-36.0) g/dL RDW 18.1 H (12.1-15.1) % Plt Count 276 (130-400) 10^3/c mm MPV 11.3 H (7.4-10.4) fL Neut % (Auto) 66.5 % Lymph % (Auto) 20.4 % [place] % (Auto) 9.1 % Eos % (Auto) 3.0 % Baso % (Auto) 0.6 % Neut # (Auto) 4.65 (1.8-7.7) 10^3/u L Lymph # (Auto) 1.4 (0.8-4.8) 10^3/u L [place] # (Auto) 0.6 (0.2-0.9) 10^3/u L Eos # (Auto) 0.2 (0.0-0.8) 10^3/u L Baso # (Auto) 0.0 (0.0-0.1) 10^3/u L Nucleated RBC % (a uto) 0 % Nucleated RBCs # 0.0 /100WBC Sodium Cancelled 139 Potassium Cancelled 3.4 L Chloride Cancelled 107 Carbon Dioxide Cancelled 21 L Anion Gap Cancelled 14.4 BUN Cancelled 12 Creatinine Cancelled 1.0 H GFR Calculation Cancelled 61.4 L Glucose Cancelled 103 Calculated Osmolal ity Cancelled 288 Calcium Cancelled 8.4 L Total Bilirubin Cancelled 0.3 AST Cancelled 38 H ALT Cancelled 27 Alkaline Phosphata se Cancelled 146 H Total Protein Cancelled 6.3 L Albumin Cancelled 3.6 Globulin Cancelled 2.7 Imaging Data^: CXR: Attestation: I personally reviewed and interpreted this imaging study as follows: My impression: Negative for any acute findings. Discharge Plan Discharge Patient Disposition: Home Clinical Impression: Pleuritic chest pain, Cystic fibrosis, Lung transplant recipient Condition: Stable Prescriptions: New benzonatate [Tessalon Perles] 100 mg capsule 100 mg PO BID PRN (Reason: cough) Qty: 20 RF: 0 No Action oxycodone 5 mg Tablet 5 mg PO Q4H PRN (Reason: Pain) RF: 0 multivitamin [Multiple Vitamins] Tablet 1 tab PO DAILY@0700 RF: 0 cetirizine [Zyrtec] 10 mg Tablet 10 mg PO DAILY@1900 RF: 0 azithromycin 250 mg Tablet See Rx Instructions .ROUTE .COMPLEX RF: 0 mycophenolate mofetil 250 mg Capsule 750 mg PO BID@0700,1900 RF: 0 prednisone 5 mg Tablet 5 mg PO DAILY@0700 RF: 0 valacyclovir 500 mg Tablet 500 mg PO DAILY@1900 RF: 0 sulfamethoxazole-trimethoprim [Bactrim DS] 800-160 mg Tablet See Rx Instructions .ROUTE .COMPLEX RF: 0 tramadol [Ultram] 50 mg Tablet 50 - 100 mg PO QID PRN (Reason: Pain) RF: 0 pantoprazole [Protonix] 40 mg Tablet,Delayed Release (Dr/Ec) 40 mg PO DAILY@0700 RF: 0 vitamin B complex Tablet 1 tab PO DAILY@1900 RF: 0 tacrolimus 0.5 mg Capsule See Rx Instructions .ROUTE .COMPLEX RF: 0 topiramate [Topamax] 50 mg Tablet 75 mg PO BEDTIME@1900 RF: 0 pregabalin [Lyrica] 200 mg Capsule 200 mg PO BID@0700,1900 RF: 0 Creon 24,000-76,000 -120,000 unit Capsule,Delayed Release(Dr/Ec) See Rx Instructions .ROUTE .COMPLEX RF: 0 vilazodone 20 mg Tablet 20 mg PO DAILY@0700 RF: 0 Discharge Orders: Discharge ED (Routine); Ordered 09/25/20 Ordered By: Kaushik Egan Referrals: Scottie Herrera MD [Primary Care Provider] - Discharge Diet: Advance as tolerated Discharge Activity: Resume usual activity Patient Instructions: Opioid Safety Activity Restrictions/Additional Instructions: Continue all medications at home. Follow-up with your primary care physician as instructed. Follow-up with your lung specialist as scheduled. Coding Level of Care Code ED Outside Sales for Chg Fwd Exam Comprehensive
--- NOTE | 2020-09-25 10:42 | ECG_ITS ---
[facility] Test Date: 2020-09-25 Pat Name: Bridgette Ho Department: Room: Gender: Female Life Insurance Specialist: : 1980 Requested By: Kaushik Egan Order Number: [id number] Theresa MD: Emilia Purdy M.D. Measurements Intervals [place] Rate: 75 P: 53 IN: 149 QRS: -15 QRSD: 105 T: 61 QT: 373 QTc: 418 Interpretive Statements SINUS RHYTHM NONSPECIFIC T-WAVE ABNORMALITY No previous ECG available for comparison Electronically Signed On 09-25-2020 21:08:06 CDT by Emilia Purdy M.D. [id number] [email or web address]
[2020-09-25] MEDS: sodium chloride 0.9% 500 ML IV (10:54)
[2020-09-25] MEDS: benzonatate 100 mg Capsule PO (10:54)
[2020-09-25 11:13] LABS: Basophils % 0.6 %; Eosinophils # 0.2 10^3/uL (0.0-0.8); Hematocrit 44.7 % (37.0-47.0); Hemoglobin 14.7 g/dL (11.5-15.3); Lymphocytes # 1.4 10^3/uL (0.8-4.8); Lymphocytes % 20.4 %; Mean Corpuscular HGB Conc 32.9 g/dL (30.0-36.0); Mean Corpuscular Hemoglobin 32.4 pg (28.0-34.0); Mean Corpuscular Volume 98.5 fL (81-99); Mean Platelet Volume 11.3 fL (7.4-10.4); Monocytes # 0.6 10^3/uL (0.2-0.9); Monocytes % 9.1 %; Neutrophils # 4.65 10^3/uL (1.8-7.7); Neutrophils % 66.5 %; Nucleated Red Blood Cells % 0 %; Platelet Count 276 10^3/cmm (130-400); Red Blood Count 4.54 10^6/uL (4.1-5.3); Red Cell Distribution Width 18.1 % (12.1-15.1)
[2020-09-25] MEDS: albuterol 8 gm MDI 2 PUFF INHALATION (11:27)
[2020-09-25 11:30] VITALS: PULSE 79; RESP 20; O2SAT 97
[2020-09-25 11:33] VITALS: PULSE 83
[2020-09-25 12:06] VITALS: BP 130/82; PULSE 85; RESP 16; O2SAT 98
[2020-09-25 12:07] LABS: Alanine Aminotransferase 27 U/L (0-33); Albumin Level 3.6 g/dL (3.5-5.2); Alkaline Phosphatase 146 IU/L (35-105); Anion Gap 14.4 (5-19); Aspartate Amino Transferase 38 U/L (0-32); Blood Urea Nitrogen 12 mg/dL (6-20); Calcium 8.4 mg/dL (8.5-10.5); Carbon Dioxide 21 mmol/L (22-29); Chloride 107 mmol/L (98-107); Globulin 2.7 g/dL (1.3-4.6); Glomerular Filtration Rate 61.4 mL/min (90-130); Glucose 103 mg/dL (65-115); Osmolality Calculated 288 mOsm/kg (285-295); Potassium 3.4 mmol/L (3.5-5.1); Sodium 139 mmol/L (136-145); Total Bilirubin 0.3 mg/dL (0.15-1.2); Total Protein 6.3 g/dL (6.6-8.7)
[2020-09-25 14:24] VITALS: BP 130/82; PULSE 85; RESP 16; O2SAT 98
== END 2020-09-25 12:00 | disposition home or self-care (01) ==
PROVIDERS: Emergency Provider Emergency Medicine; PCP Family Medicine
DX: R07.89 Other chest pain (principal); E84.9 Cystic fibrosis, unspecified; Z94.2 Lung transplant status
CPT/HCPCS: 71046; 80053; 85025; 93005; 94640; 96360; 99284; J3535; J7040

== ENCOUNTER 2021-06-24 12:04 | Emergency (ER) | payer MEDICAID, SELFPAY ==
[2021-06-24] VITALS (9 sets, daily range): BP systolic 144–177; BP diastolic 95–106; PULSE 86–107; RESP 11–22; TEMP 36.6; O2SAT 94–97; BMI 22.1
--- NOTE | 2021-06-24 12:30 | W.ED.GENADLT ---
HPI - General Adult General: Chief complaint: General Medical Stated complaint: Sent from [facility] for high BP Time Seen by Provider: 06/24/21 12:28 History of Present Illness: This patient comes to the emergency department because of concerns about somatic symptoms of been present now for several days. She was referred to the emergency department by her primary care nurse. Patient's history is that she is a double lung transplant for cystic fibrosis approximately 26 years out from that surgery. She has generally done well since that procedure. She is concomitantly followed by her primary care doctor here as well as [facility] transplant team in [place]. She has noted that she has been monitoring her blood pressure for the last several months its been intermittently elevated while in clinic but seemingly in a normal range when monitored at home. She was in [place] approximately 11 days ago and had her usual checkup and also had an injection of a new COVID-19 related treatment. He states that over the past few days she is noted increasing blood pressure and was started on metoprolol by her primary care doctor as well as increase her prednisone 5 mg a day for 5 days. She normally takes 5 mg daily and has done that for some time. She states that within 24 hours or so after taking those 2 medications she has been sleepless for the subsequent 2 to 3 days with feelings of lightheadedness and dizziness as well as generalized not feeling her normal self. She stopped the metoprolol and was given amlodipine to substitute but she has not taken that as of yet. She did take 12 and half milligrams Benadryl because she thought she might be having allergic reaction. She does have a history of reactive airway disease and you occasionally uses her inhaler but has not used that recently. She denies any other changes in her treatment. She states she is not had fevers or chills. She has not had any nausea vomiting or diarrhea or other constitutional symptoms. She does not use oxygen at home. She does admit to having underlying anxiety and this was also echoed by her mother who was with her during the interview. There is no family history of cardiovascular disease and she has no siblings. She had mild headache but nothing significant. She does have a history of migraine headaches. She denied any focal weakness, difficulty with speech, difficulty with movement etc. Associated symptoms: Reports headache(s) and palpitations; Deny dyspnea, nausea, rash, syncope or vomiting Review of Systems Const: Denies: fever(s), chills, body aches or change in appetite Eyes: Denies: change in vision or blurry vision ENMT: Denies: throat pain or odynophagia Card: Reports: palpitations and lightheadedness; Denies: irregular heart rhythm, swelling of feet/ankles, syncope, pre-syncope or orthopnea Resp: Denies: dyspnea or productive cough GI: Denies: abdominal pain, nausea, vomiting or dysphagia : Denies: flank pain, difficulty voiding or dysuria Musc: Denies: neck pain, back pain, extremity pain or extremity swelling Skin/Breast: Denies: rash or pruritus Neuro: Reports: headache(s); Denies: numbness in extremities or weakness in extremities Psych: Reports: anxiety Endo: Denies: polyuria or polydipsia PFSH ED PFSH: Medical History (Updated 06/24/21 @ 16:22 by Ezra Thao DO) CKD (chronic kidney disease) Cystic fibrosis Lung transplant recipient Surgical History S/P cholecystectomy Physical Exam Narrative: EXAM NARRATIVE: She appears in no acute distress. She makes good eye contact. No dyspnea with conversation. Const: COMMON NORMALS: no acute distress and patient oriented x3 GENERAL APPEARANCE: cooperative and comfortable HENMT: COMMON NORMALS: normocephalic, Normal nasal mucous membranes and turbinates present and moist oral mucous membranes HEAD & SCALP: normocephalic FACE & SINUS: normal facial exam NOSE: Normal nasal mucous membranes and turbinates present Eye: COMMON NORMALS: Equal, round and reactive pupils present, EOMs intact bilaterally and conjunctivae normal CONJUNCTIVA: Yes conjunctivae normal PUPIL: Yes Equal, round and reactive pupils present Neck/C-Spine: COMMON NORMALS: full ROM, no lymphadenopathy and no JVD Lymph: LYMPHATIC: no lymphadenopathy noted Chest: COMMONS NORMALS: normal inspection of the chest Resp: COMMON NORMALS: normal respiratory effort, No retractions, No use of accessory muscles and clear to auscultation bilaterally AUSCULTATION: clear to auscultation bilaterally Cardio: COMMON NORMALS: no JVD, regular rate, No murmurs present (Cardio) and Peripheral pulses 2+ throughout RATE: regular rate PERIPHERAL PULSES: Peripheral pulses 2+ throughout GI: COMMON NORMALS: Normal to inspection, nondistended, normoactive bowel sounds present, Soft to palpation and non-tender PALPATION: Yes Soft to palpation : COMMON NORMALS: Yes no CVA tenderness BLADDER/KIDNEY EXAM: Yes no CVA tenderness Back/Pelvis: COMMON NORMALS: no CVA tenderness, thoracic and lumbar spine normal to inspection and no thoracic nor lumbar tenderness Extremity: COMMON NORMALS: normal to inspection, no clubbing, cyanosis or edema, no calf tenderness and no pedal edema Neuro: COMMON NORMALS: patient oriented x3, moves all extremities, no focal motor deficits and no sensory deficits noted CRANIAL NERVES: Yes CN normal except as noted Course Reevaluation(s): Reevaluation #1: Patient subjectively feels better. Her blood pressure is trending downward. Discussed current findings, my discussion with transplant team fellow as well as current ancillary studies. Unclear as to the etiology of her symptoms it may be multifactorial to include perhaps some side effects from her monoclonal antibody injection; progressive hypertension that is finally required treatment; increase prednisone given recently as well as her superimposed on underlying anxiety disorder nonetheless I think at this point she is stable without any evidence of ongoing emergency medical condition requiring admission or further evaluation today. We discussed expected course with both she and her mother, transplant team follow-up recommendations in [place] this coming week as well as continuing the amlodipine for blood pressure control. Consultations: Consultation #1: Lung transplant team fellow at [facility] in [place]. Time: 16:02 Vital Signs: Vital signs: Vital Signs Temperature 97.8 F 06/24/21 12:16 Pulse Rate 88 06/24/21 15:30 Respiratory Rate 15 06/24/21 15:30 Blood Pressure 160/97 06/24/21 15:30 Pulse Oximetry 96 06/24/21 15:30 [facility] - General Adult Medical Decision Making Likely represents multifactorial etiology but at this point time she does not have any evidence to suggest acute emergency medical condition that requires further care. Stable at this time for discharge to continue the amlodipine, stop any additional prednisone, schedule follow-up with transplant team at [facility] this coming week. Lab Data : 06/24/21 13:13 06/24/21 13:13 Radiology Impressions Chest X-Ray 06/24/21 13:01 IMPRESSION: Worsening interstitial opacities, left greater than right, with small nodular foci. Recommend CT chest to better characterize. Laboratory Results WBC 18.7 10^3/uL (4.0-10.0) H 06/24/21 13:13 RBC 4.32 10^6/uL (4.1-5.3) 06/24/21 13:13 Hgb 14.5 g/dL (11.5-15.3) 06/24/21 13:13 Hct 43.3 % (37.0-47.0) 06/24/21 13:13 MCV 100.2 fl (81-99) H 06/24/21 13:13 MCH 33.6 pg (28.0-34.0) 06/24/21 13:13 MCHC 33.5 g/dL (30.0-36.0) 06/24/21 13:13 RDW 14.3 % (12.1-15.1) 06/24/21 13:13 Plt Count 259 10^3/cmm (130-400) 06/24/21 13:13 MPV 10.8 fL (7.4-10.4) H 06/24/21 13:13 Neut % (Auto) 95.4 % 06/24/21 13:13 Lymph % (Auto) 2.6 % 06/24/21 13:13 [place] % (Auto) 1.2 % 06/24/21 13:13 Eos % (Auto) 0.0 % 06/24/21 13:13 Baso % (Auto) 0.2 % 06/24/21 13:13 Neut # (Auto) 17.85 10^3/uL (1.8-7.7) H 06/24/21 13:13 Lymph # (Auto) 0.5 10^3/uL (0.8-4.8) L 06/24/21 13:13 [place] # (Auto) 0.2 10^3/uL (0.2-0.9) 06/24/21 13:13 Eos # (Auto) 0.0 10^3/uL (0.0-0.8) 06/24/21 13:13 Baso # (Auto) 0.0 10^3/uL (0.0-0.1) 06/24/21 13:13 Nucleated RBC % (auto) 0 % 06/24/21 13:13 Nucleated RBCs # 0.0 /100WBC 06/24/21 13:13 Sodium 130 mmol/L (136-145) L 06/24/21 13:13 Potassium 4.5 mmol/L (3.5-5.1) 06/24/21 13:13 Chloride 96 mmol/L (98-107) L 06/24/21 13:13 Carbon Dioxide 20 mmol/L (22-29) L 06/24/21 13:13 Anion Gap 18.5 (5-19) 06/24/21 13:13 BUN 22 mg/dL (6-20) H 06/24/21 13:13 Creatinine 1.4 mg/dL (0.5-0.9) H 06/24/21 13:13 GFR Calculation 41.4 mL/min (90-130) L 06/24/21 13:13 Glucose 251 mg/dL (65-115) H 06/24/21 13:13 Calculated Osmolality 282 mOsm/kg (285-295) L 06/24/21 13:13 Calcium 8.4 mg/dL (8.5-10.5) L 06/24/21 13:13 Total Bilirubin 0.3 mg/dL (0.15-1.2) 06/24/21 13:13 AST 40 U/L (0-32) H 06/24/21 13:13 ALT 40 U/L (0-33) H 06/24/21 13:13 Alkaline Phosphatase 169 IU/L (35-105) H 06/24/21 13:13 Troponin T Gen 5 ng/L 10 ng/L (0-10) 06/24/21 13:13 Total Protein 6.8 g/dL (6.6-8.7) 06/24/21 13:13 Albumin 4.0 g/dL (3.5-5.2) 06/24/21 13:13 Globulin 2.8 g/dL (1.3-4.6) 06/24/21 13:13 EKG Data EKG 1: I personally reviewed and interpreted this EKG as follows: Interpretation: EKG reveals a ventricular rate of 99 bpm. Normal intervals normal axis. No acute ST-T wave changes noted. No preexcitation's syndrome noted. Computer generated interpretation: Chest X-Ray 06/24/21 13:01 IMPRESSION: Worsening interstitial opacities, left greater than right, with small nodular foci. Recommend CT chest to better characterize. Discharge Plan Discharge Patient Disposition: Home Clinical Impression: Hypertension, Lung transplant recipient Condition: Stable Prescriptions: No Action oxycodone 5 mg Tablet 5 mg PO Q4H PRN (Reason: Pain) 0RF Rx Instructions: *SEE PHARMACY COMMENT* multivitamin [Multiple Vitamins] Tablet 1 tab PO DAILY@0700 0RF cetirizine [Zyrtec] 10 mg Tablet 10 mg PO DAILY@1900 0RF azithromycin 250 mg Tablet See Rx Instructions .ROUTE .COMPLEX 0RF Rx Instructions: 1 tab po on sat,sat,and saturday mycophenolate mofetil 250 mg Capsule 750 mg PO BID@0700,1900 0RF prednisone 5 mg Tablet 5 mg PO DAILY@0700 0RF valacyclovir 500 mg Tablet 500 mg PO DAILY@1900 0RF sulfamethoxazole-trimethoprim [Bactrim DS] 800-160 mg Tablet See Rx Instructions .ROUTE .COMPLEX 0RF Rx Instructions: one tab po on sat,sat,and sat tramadol [Ultram] 50 mg Tablet 50 - 100 mg PO QID PRN (Reason: Pain) 0RF Rx Instructions: PT STATES SHE TAKES 4-5 TABS EVERY MORNING. pantoprazole [Protonix] 40 mg Tablet,Delayed Release (Dr/Ec) 40 mg PO DAILY@0700 0RF vitamin B complex Tablet 1 tab PO DAILY@1900 0RF tacrolimus 0.5 mg Capsule See Rx Instructions .ROUTE .COMPLEX 0RF Rx Instructions: 1mg po AT 0700 and 0.5mg po AT 1900 topiramate [Topamax] 50 mg Tablet 75 mg PO BEDTIME@1900 0RF pregabalin [Lyrica] 200 mg Capsule 200 mg PO BID@0700,1900 0RF Creon 24,000-76,000 -120,000 unit Capsule,Delayed Release(Dr/Ec) See Rx Instructions .ROUTE .COMPLEX 0RF Rx Instructions: 4 CAP TID WITH MEALS AND 2 TIMES DAILY WITH SNACKS PT STATES SHE TAKES 3 CAP QAM, 4 CAPS IN THE EVENING AND 1 CAP WITH THE TACROLIMUS DOSE TAKE AT 0700 vilazodone 20 mg Tablet 20 mg PO DAILY@0700 0RF Tessalon Perles 100 mg capsule 100 mg PO BID PRN (Reason: cough) Qty: 20 0RF Discharge Orders: Discharge ED (Routine); Ordered 06/24/21 Ordered By: Ezra Thao Referrals: Scottie Herrera MD [Primary Care Provider] - Discharge Diet: Usual diet Discharge Activity: Resume usual activity Patient Instructions: Opioid Safety Activity Restrictions/Additional Instructions: Resume your normal daily prednisone dose tomorrow. Continue the amlodipine for blood pressure control. Take it with your 7 PM medications. Monitor your blood pressure at home once daily and record those numbers. Call the transplant team nurse coordinator on Saturday to arrange a follow-up this coming week. If you develop any new persistent or worsening symptoms at any time return to this or the nearest emergency department for reevaluation. Coding Level of Care Code ED Steward/Stewardess Economy Class for Alphonse Fwd Exam Comprehensive
--- NOTE | 2021-06-24 13:01 | XRR_ITS ---
PROCEDURE INFORMATION: Exam: XR Chest Exam date and time: 06/24/2021 1:01 PM Age: 41 years old Clinical indication: Cough and shortness of breath. TECHNIQUE: Imaging protocol: XR of the chest. Views: 1 view. COMPARISON: CR XR chest 2V* [id number] 09/25/2020 11:04 AM FINDINGS: Lungs: There are worsening interstitial opacities, left greater than right, with small nodular foci. Pleural spaces: Pleural thickening and scarring in the left apex. No pleural effusion. No pneumothorax. Heart/Mediastinum: The cardiac silhouette is grossly unchanged given differences in patient positioning. No gross evidence of pneumomediastinum. Bones/joints: Clamshell Median sternotomy wires are noted. No gross fracture. XR/XR chest 1V portable [id number] IMPRESSION: Worsening interstitial opacities, left greater than right, with small nodular foci. Recommend CT chest to better characterize.
[2021-06-24 13:24] LABS: Basophils % 0.2 %; Hematocrit 43.3 % (37.0-47.0); Hemoglobin 14.5 g/dL (11.5-15.3); Lymphocytes # 0.5 10^3/uL (0.8-4.8); Lymphocytes % 2.6 %; Mean Corpuscular HGB Conc 33.5 g/dL (30.0-36.0); Mean Corpuscular Hemoglobin 33.6 pg (28.0-34.0); Mean Corpuscular Volume 100.2 fl (81-99); Mean Platelet Volume 10.8 fL (7.4-10.4); Monocytes # 0.2 10^3/uL (0.2-0.9); Monocytes % 1.2 %; Neutrophils # 17.85 10^3/uL (1.8-7.7); Neutrophils % 95.4 %; Nucleated Red Blood Cells % 0 %; Platelet Count 259 10^3/cmm (130-400); Red Blood Count 4.32 10^6/uL (4.1-5.3); Red Cell Distribution Width 14.3 % (12.1-15.1); White Blood Count 18.7 10^3/uL (4.0-10.0)
[2021-06-24 13:41] LABS: Troponin T (5th) Once 10 ng/L (0-10)
[2021-06-24 14:06] LABS: Alkaline Phosphatase 169 IU/L (35-105); Blood Urea Nitrogen 22 mg/dL (6-20); Calcium 8.4 mg/dL (8.5-10.5); Carbon Dioxide 20 mmol/L (22-29); Chloride 96 mmol/L (98-107); Globulin 2.8 g/dL (1.3-4.6); Glomerular Filtration Rate 41.4 mL/min (90-130); Glucose 251 mg/dL (65-115); Osmolality Calculated 282 mOsm/kg (285-295); Sodium 130 mmol/L (136-145); Total Bilirubin 0.3 mg/dL (0.15-1.2); Total Protein 6.8 g/dL (6.6-8.7)
[2021-06-24 14:13] LABS: Alanine Aminotransferase 40 U/L (0-33); Anion Gap 18.5 (5-19); Aspartate Amino Transferase 40 U/L (0-32); Potassium 4.5 mmol/L (3.5-5.1)
== END 2021-06-24 16:52 | disposition home or self-care (01) ==
PROVIDERS: Emergency Provider Emergency Medicine; PCP Family Medicine
DX: I10 Essential (primary) hypertension (principal); Z94.2 Lung transplant status; E84.9 Cystic fibrosis, unspecified
CPT/HCPCS: 71045; 80053; 84484; 85025; 99284

== ENCOUNTER 2021-09-26 23:00 | Inpatient (IN) | payer MEDICAID, SELFPAY ==
[2021-09-26 23:10] VITALS: BP 116/76; PULSE 117; RESP 20; TEMP 39; O2SAT 96; BMI 27.1
--- NOTE | 2021-09-26 23:12 | W.ED.ABDPA2 ---
HPI - Abdominal Pain General: Chief Complaint: Abdominal Pain Stated Complaint: abd pain, dizzy Time Seen by Provider: 09/26/21 23:06 History of Present Illness: Ms. Ho is a 41-year-old lady with complex past medical history including cystic fibrosis status post lung transplant and CKD with history of nephrolithiasis who presents to the emergency department due to abdominal pain as well as fever and generalized malaise. She first noticed abdominal pain in left lower quadrant which feels like pulling approximately 2 or 3 days ago. She denies specific known provoking event. She has had similar episodes in the past associated with kidney stones. Additionally she has been more fatigued and sleeping significantly more over the past few days. This evening she developed fevers taken orally of 102. She does note some respiratory raspiness which improved with home treatments. Overall course of symptoms has been worsening. Intensity is moderate to severe with regards to fatigue. She reports compliance with her medication regimen with the exception of missing her Bactrim DS and azithromycin on Saturday (typically takes 3 times weekly). No other specific changes in health, exacerbating, or alleviating factors identified. Onset (ago): day(s) Pain Consistency: constant Severity: moderate Quality: other (Pulling) Review of Systems General: Reports: 10 or more systems reviewed and unremarkable except in HPI and below PFSH ED PFSH: Medical History CKD (chronic kidney disease) Cystic fibrosis Hx of ehrlichiosis Lung transplant recipient MRSA infection Nephrolithiasis Surgical History History of hysterectomy History of tracheostomy S/P cholecystectomy Family History (Updated 09/27/21 @ 05:20 by Js Meeks MD) Mother Lupus Social History Smoking and tobacco status: never smoked Alcohol intake: never Substance/Drug Use: never Physical Exam Const: COMMON NORMALS: alert GENERAL APPEARANCE: cooperative, well developed and ill appearing HENMT: COMMON NORMALS: normocephalic and atraumatic HEAD & SCALP: normocephalic and atraumatic THROAT: posterior oropharynx normal Eye: COMMON NORMALS: conjunctivae normal CONJUNCTIVA: Yes conjunctivae normal SCLERA: sclerae normal Neck/C-Spine: COMMON NORMALS: supple GENERAL: Yes trachea midline Resp: COMMON NORMALS: normal respiratory effort EFFORT & INSPECTION: Yes able to speak in complete sentences AUSCULTATION: diminished lung sounds Cardio: COMMON NORMALS: regular rhythm RATE: tachycardic RHYTHM: regular rhythm GI: COMMON NORMALS: Soft to palpation PALPATION: Yes Soft to palpation, Yes Tenderness to palpation present (GI) Details: LLQ, No Guarding due to palpation present (GI) and No Rigid due to palpation Extremity: NARRATIVE EXTREMITY EXAM: Bilateral lower extremity walking boots GENERAL: Yes normal exam except as noted and No edema Neuro: COMMON NORMALS: moves all extremities SENSORIUM/ORIENTATION: Yes alert and No Orientation impaired Psych: COMMON NORMALS: mental status grossly normal and Normal thought process present THOUGHT PROCESS: Normal thought process present Course ED course: - Patient was seen and evaluated by me at bedside - Patient placed on cardiac monitors, IV access obtained - Initial evaluation notable for exam as above. Febrile and tachycardic. No oxygen requirement or significant respiratory distress - Labs personally interpreted by me. EKG notable for sinus tachycardia, nonspecific ST segment abnormalities. No STEMI - 30 cc/kg fluids and antipyretic given - Labs notable for no leukocytosis, normal hemoglobin. Significant electrolyte abnormalities with hyponatremia and hypochloremia as well as hypokalemia. Mildly decreased bicarb. Renal function near baseline. Patient does have a history of hyponatremia though this is worse than baseline. Initial lactate elevated though improved after IV fluids. Magnesium also low and magnesium replenishment ordered with potassium replenishment. Chronic mild transaminitis. Urinalysis with 5-10 white blood cells and 1+ leuk esterase though nitrite negative, will be sent for culture. Viral studies negative. - Imaging notable for no acute intra-abdominal pathology to explain abdominal pain. There is mild constipation.. The patient met SIRS criteria a definitive source of infection was not identified until results of CT imaging at which point IV antibiotic ordered after discussion with [place] lung transplant physician Dr. Santana Harris - Dr. Dillon feels that it is reasonable for the patient to be admitted here in addition to the fact that parents has multi day wait list for beds as of yesterday. He did recommend antibiotics and aggressive bowel regimen. His service is available for any telephone discussion and if patient were to deteriorate reassessment regarding transfer. - Upon serial reexamination after treatment the patient was improved. She notes marked improvement in generalized symptoms including mild instability as well as resolution of fever and tachycardia - Based on patient history, evaluation, and testing as interpreted the most likely cause of the patient's condition is pneumonia with sepsis in the context of lung transplant and immunosuppression - The results of ED evaluation were discussed with the patient including plan for admission due to requirement for level of care not available if discharged to prevent significant worsening/deterioration. - Admitting service was contacted and Dr Meeks with the hospitalist service agreed to admit the patient - Patient was admitted without further deterioration or significant events. Note: Click bubbles or prepopulated kirk in note writing are used for assistance with data collection and billing and are inherently more limited than narrative and other text portions of this note. Please use narrative for additional clinical history and defer to narrative/free test for any case of contradictory information. If information appears in only free text or click bubble it should be considered present or absent as reported. Please contact note contract technical writer for clarifications of clinical information or contradictory information. MDM is a brief summary, contradictory or erroneous seeming information should be clarified and full note should be reviewed. 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 Patient initially febrile and tachycardic though improved after fluid and antipyretic. Found to possibly have pneumonia without other clear explanation for infectious symptoms. Given medical history as well as list of antibiotic allergies I will treat with IV antibiotics and admit for further management. Discussed with lung transplant physician at [place]. Medical Records I reviewed the patient's medical records. Lab Data I reviewed the patient's lab results. : 09/26/21 23:35 09/26/21 23:35 Labs/Radiology: Radiology Impressions Chest/Abdomen/Pelvis CT 09/27/21 00:48 IMPRESSION: 1. Stable multiple nodules in the left upper lobe, most prominent measuring approximately 4 mm. Findings may be secondary to scarring. For patients at low risk (minimal or absent history of smoking and of other known risk factors), no routine follow-up is indicated. For patients at high risk (history of smoking or of other known risk factors), consider optional CT IMPRESSION: 1. Mild constipation. 2. Nonobstructing bilateral renal pelvis stones. Laboratory Results WBC 4.4 10^3/uL (4.0-10.0) 09/26/21 23:35 RBC 3.70 10^6/uL (4.1-5.3) L 09/26/21 23:35 Hgb 12.7 g/dL (11.5-15.3) 09/26/21 23:35 Hct 34.5 % (37.0-47.0) L 09/26/21 23:35 MCV 93.2 fl (81-99) 09/26/21 23:35 MCH 34.3 pg (28.0-34.0) H 09/26/21 23:35 MCHC 36.8 g/dL (30.0-36.0) H 09/26/21 23:35 RDW 14.8 % (12.1-15.1) 09/26/21 23:35 Plt Count 154 10^3/cmm (130-400) 09/26/21 23:35 MPV 11.5 fL (7.4-10.4) H 09/26/21 23:35 Neut % (Auto) 87.8 % 09/26/21 23:35 Lymph % (Auto) 7.6 % 09/26/21 23:35 [place] % (Auto) 2.8 % 09/26/21:35 Eos % (Auto) 0.0 % 09/26/21:35 Baso % (Auto) 0.2 % 09/26/21 23:35 Neut # (Auto) 3.82 10^3/uL (1.8-7.7) 09/26/21:35 Lymph # (Auto) 0.3 10^3/uL (0.8-4.8) L 09/26/21 23:35 [place] # (Auto) 0.1 10^3/uL (0.2-0.9) L 09/26/21 23:35 Eos # (Auto) 0.0 10^3/uL (0.0-0.8) 09/26/21 23:35 Baso # (Auto) 0.0 10^3/uL (0.0-0.1) 09/26/21 23:35 Nucleated RBC % (auto) 0 % 09/26/21 23:35 Nucleated RBCs # 0.0 /100WBC 09/26/21 23:35 Sodium 121 mmol/L (136-145) L 09/26/21 23:35 Potassium 3.0 mmol/L (3.5-5.1) L 09/26/21 23:35 Chloride 88 mmol/L (98-107) L 09/26/21 23:35 Carbon Dioxide 19 mmol/L (22-29) L 09/26/21 23:35 Anion Gap 17.0 (5-19) 09/26/21 23:35 BUN 20 mg/dL (6-20) 09/26/21 23:35 Creatinine 1.2 mg/dL (0.5-0.9) H 09/26/21 23:35 GFR Calculation 49.5 mL/min (90-130) L 09/26/21 23:35 Glucose 123 mg/dL (65-115) H 09/26/21 23:35 Calculated Osmolality 256 mOsm/kg (285-295) L 09/26/21 23:35 Lactic Acid 2.4 mmol/L (0.5-2.2) H 09/27/21 00:14 Lactic Acid (Sepsis) 1.0 mmol/L (0.5-2.2) 09/27/21 04:03 Calcium 8.1 mg/dL (8.5-10.5) L 09/26/21 23:35 Magnesium 1.5 mg/dL (1.7-2.3) L 09/26/21 23:35 Total Bilirubin 0.4 mg/dL (0.15-1.2) 09/26/21 23:35 AST 50 U/L (0-32) H 09/26/21 23:35 ALT 29 U/L (0-33) 09/26/21 23:35 Alkaline Phosphatase 183 IU/L (35-105) H 09/26/21 23:35 C-Reactive Protein 49.6 mg/L (0.0-4.9) H 09/26/21 23:35 Total Protein 5.9 g/dL (6.6-8.7) L 09/26/21 23:35 Albumin 3.3 g/dL (3.5-5.2) L 09/26/21 23:35 Globulin 2.6 g/dL (1.3-4.6) 09/26/21 23:35 Lipase 5 U/L (13-60) L 09/26/21 23:35 Procalcitonin 0.39 ng/mL (0-0.5) 09/26/21 23:35 HCG, Qual Negative (Negative) 09/26/21 23:21 Urine Color Colorless (Yellow) 09/26/21 23:21 Urine Appearance Clear (CLEAR) 09/26/21 23:21 Urine pH 6 (5-7) 09/26/21 23:21 Ur Specific [place] 1.005 (1.005-1.030) 09/26/21 23:21 Urine Protein Neg (Negative) 09/26/21 23:21 Urine Glucose (UA) Norm (Normal) 09/26/21 23:21 Urine Ketones Negative (Negative) 09/26/21 23:21 Urine Blood Neg (Negative) 09/26/21 23:21 Urine Nitrate Negative (Negative) 09/26/21 23:21 Urine Bilirubin Neg (Negative) 09/26/21 23:21 Urine Urobilinogen Norm mg/dL (Negative) 09/26/21 23:21 Ur Leukocyte Esterase 1+ (Negative) H 09/26/21 23:21 Urine RBC 0-4 /hpf (0-2) H 09/26/21 23:21 Urine WBC 5-10 /hpf (0-5) H 09/26/21 23:21 Ur Squamous Epith Cells 0-4 /hpf (0-5) H 09/26/21 23:21 Amorphous Sediment Not Reportable 09/26/21 23:21 Urine Bacteria Trace /hpf (NONE) 09/26/21 23:21 Coronavirus 229E (PCR) Not detected (NOT DETECT) 09/26/21 23:46 SARS-CoV-2 (PCR) Not detected (NOT DETECT) 09/26/21 23:46 Critical Care Time Critical Care Time: Critical Care Time: Yes Total Critical Care Time: 45 Attestation: Due to a high probability of clinically significant, possibly life threatening deterioration, the patient required my highest level of attention and preparedness to intervene emergently and I personally spent this critical care time directly and personally managing the patient. This critical care time included obtaining a history; examining the patient; pulse oximetry; ordering and review of laboratory and imaging studies; arranging urgent treatment with development of a management plan; evaluation of patient's response to treatment; frequent reassessment; and, discussions with other providers as applicable. It was exclusive of separately billable procedures. Discharge Plan Discharge Patient Disposition: Admitted As Inpatient Admit Provider: Js Meeks Clinical Impression: Pneumonia, Sepsis, History of lung transplant, History of cystic fibrosis, Immunosuppressed status, Constipation, Dehydration, Hyponatremia, Hypokalemia Condition: Stable Prescriptions: No Action oxycodone 5 mg Tablet 5 mg PO Q4H PRN (Reason: Pain) 0RF Rx Instructions: *SEE PHARMACY COMMENT* multivitamin [Multiple Vitamins] Tablet 1 tab PO DAILY@0700 0RF cetirizine [Zyrtec] 10 mg Tablet 10 mg PO DAILY@1900 0RF azithromycin 250 mg Tablet See Rx Instructions .ROUTE .COMPLEX 0RF Rx Instructions: 1 tab po on sat,sat,and saturday mycophenolate mofetil 250 mg Capsule 750 mg PO BID@0700,1900 0RF prednisone 5 mg Tablet 5 mg PO DAILY@0700 0RF valacyclovir 500 mg Tablet 500 mg PO DAILY@1900 0RF sulfamethoxazole-trimethoprim [Bactrim DS] 800-160 mg Tablet See Rx Instructions .ROUTE .COMPLEX 0RF Rx Instructions: one tab po on sat,sat,and sat tramadol [Ultram] 50 mg Tablet 50 - 100 mg PO QID PRN (Reason: Pain) 0RF Rx Instructions: PT STATES SHE TAKES 4-5 TABS EVERY MORNING. pantoprazole [Protonix] 40 mg Tablet,Delayed Release (Dr/Ec) 40 mg PO DAILY@0700 0RF vitamin B complex Tablet 1 tab PO DAILY@1900 0RF tacrolimus 0.5 mg Capsule See Rx Instructions .ROUTE .COMPLEX 0RF Rx Instructions: 1mg po AT 0700 and 0.5mg po AT 1900 topiramate [Topamax] 50 mg Tablet 75 mg PO BEDTIME@1900 0RF pregabalin [Lyrica] 200 mg Capsule 200 mg PO BID@0700,1900 0RF Creon 24,000-76,000 -120,000 unit Capsule,Delayed Release(Dr/Ec) See Rx Instructions .ROUTE .COMPLEX 0RF Rx Instructions: 4 CAP TID WITH MEALS AND 2 TIMES DAILY WITH SNACKS PT STATES SHE TAKES 3 CAP QAM, 4 CAPS IN THE EVENING AND 1 CAP WITH THE TACROLIMUS DOSE TAKE AT 0700 vilazodone 20 mg Tablet 20 mg PO DAILY@0700 0RF Tessalon Perles 100 mg capsule 100 mg PO BID PRN (Reason: cough) Qty: 20 0RF Referrals: Scottie Herrera MD [Primary Care Provider] - Coding Level of Care Code ED Data Integrity Consultant for Chg Fwd Exam Comprehensive
--- NOTE | 2021-09-26 23:34 | ECG_ITS ---
[facility] Test Date: 2021-09-26 Pat Name: Bridgette Ho Department: Room: Gender: Female Paster Supervisor: : 1980 Requested By: Fidel Huang Order Number: [id number] Theresa MD: Emilia Purdy M.D. Measurements Intervals [place] Rate: 100 P: 59 SD: 144 QRS: -22 QRSD: 104 T: 76 QT: 334 QTc: 432 Interpretive Statements SINUS TACHYCARDIA BORDERLINE LEFT AXIS DEVIATION [QRS AXIS < -20] NONSPECIFIC T-WAVE ABNORMALITY ABNORMAL RHYTHM ECG Compared to ECG 09/25/2020 11:04:34 Sinus rhythm no longer present T-wave abnormality still present Electronically Signed On 09-27-2021 22:20:11 CDT by Emilia Purdy M.D. [id number]
[2021-09-26 23:43] LABS: HCG Qualitative Urine. Negative (Negative)
[2021-09-26 23:45] LABS: Basophils % 0.2 %; Hematocrit 34.5 % (37.0-47.0); Hemoglobin 12.7 g/dL (11.5-15.3); Lymphocytes # 0.3 10^3/uL (0.8-4.8); Lymphocytes % 7.6 %; Mean Corpuscular HGB Conc 36.8 g/dL (30.0-36.0); Mean Corpuscular Hemoglobin 34.3 pg (28.0-34.0); Mean Corpuscular Volume 93.2 fl (81-99); Mean Platelet Volume 11.5 fL (7.4-10.4); Monocytes # 0.1 10^3/uL (0.2-0.9); Monocytes % 2.8 %; Neutrophils # 3.82 10^3/uL (1.8-7.7); Neutrophils % 87.8 %; Nucleated Red Blood Cells % 0 %; Platelet Count 154 10^3/cmm (130-400); Red Cell Distribution Width 14.8 % (12.1-15.1); White Blood Count 4.4 10^3/uL (4.0-10.0)
[2021-09-27] VITALS (11 sets, daily range): BP systolic 86–123; BP diastolic 60–83; PULSE 73–90; RESP 16–20; TEMP 36.8–37.3; O2SAT 96–99
[2021-09-27 00:05] LABS: Add Urine Culture? No; Add Urine Microscopic? YES; Bacteria Urine TRACE /hpf; Bilirubin Urine Neg (Negative); Blood Urine Neg (Negative); Glucose Urine UA Norm (Normal); Ketones Urine Negative (Negative); Leukocyte Esterase Urine 1+ (Negative); Nitrate Urine Negative (Negative); Protein Urine Neg (Negative); RBC Urine 0-4 /hpf (0-2); Specific Gravity, Urine 1.005 (1.005-1.030); Squamous Epithelial Cell Urine 0-4 /hpf (0-5); Urine Appearance Clear (CLEAR); Urine Color Colorless (Yellow); Urobilinogen Urine Norm (Negative); pH Urine 6 (5-7)
[2021-09-27 00:14] LABS: Alanine Aminotransferase 29 U/L (0-33); Albumin Level 3.3 g/dL (3.5-5.2); Alkaline Phosphatase 183 IU/L (35-105); Aspartate Amino Transferase 50 U/L (0-32); Blood Urea Nitrogen 20 mg/dL (6-20); C Reactive Protein 49.6 mg/L (0.0-4.9); Calcium 8.1 mg/dL (8.5-10.5); Carbon Dioxide 19 mmol/L (22-29); Chloride 88 mmol/L (98-107); Globulin 2.6 g/dL (1.3-4.6); Glomerular Filtration Rate 49.5 mL/min (90-130); Glucose 123 mg/dL (65-115); Lipase 5 U/L (13-60); Osmolality Calculated 256 mOsm/kg (285-295); Sodium 121 mmol/L (136-145); Total Bilirubin 0.4 mg/dL (0.15-1.2); Total Protein 5.9 g/dL (6.6-8.7)
[2021-09-27] MEDS: sodium chloride 0.9% 1,769.01 ML 1769.01 ML IV (00:15)
[2021-09-27 00:20] LABS: Procalcitonin 0.39 ng/mL (0-0.5)
--- NOTE | 2021-09-27 00:48 | CTR_ITS ---
PROCEDURE INFORMATION: Exam: CT Chest Without Contrast; Diagnostic Exam date and time: 09/27/2021 1:08 AM Age: 41 years old Clinical indication: Other: N/a; Abdominal pain; Localized; Left lower quadrant (llq); Prior surgery; Surgery type: Bilateral lung transplant. Gb. Hysterectomy. Thr. Ureteral stents (removed). Gtube (removed). Patient HX: C/O cough with llq pain. History of cystic fibrosis. ; Additional info: HX cf/lung transplant, sirs, cough, llq abd pain TECHNIQUE: Imaging protocol: Diagnostic computed tomography of the chest without contrast. Radiation optimization: All CT scans at this facility use at least one of these dose optimization techniques: automated exposure control; mA and/or kV adjustment per patient size (includes targeted exams where dose is matched to clinical indication); or iterative reconstruction. COMPARISON: CT chest wo con [id number] 11/09/2019 1:38 PM RADIATION DOSE METRICS: Total DLP (mGy-cm): 931.23 FINDINGS: Lungs: Stable scarring in the left upper lobe. Stable multiple nodules in the left upper lobe, most prominent measuring approximately 4 mm. Findings may be secondary to scarring. = nonspecific 1.2 cm nodular opacity in the right lower lobe which could be secondary to infection. Pleural spaces: Unremarkable. No pneumothorax. No pleural effusion. Heart: No coronary artery calcifications. Lymph nodes: Unremarkable. No enlarged lymph nodes. Vasculature: Unremarkable. No aortic aneurysm. Bones/joints: There has been a median sternotomy. Soft tissues: Unremarkable. Chest at 12 months. (Reference: Lilian) 2. Nonspecific 1.2 cm nodular opacity in the right lower lobe which could be secondary to infection. REFERENCES: Lilian Frias et al. Guidelines for Management of Incidental Pulmonary Nodules Detected on CT Images: From the Fleischner Society 2017. Radiology. 2017;284(1):228-243. PROCEDURE INFORMATION: Exam: CT Abdomen And Pelvis Without Contrast Exam date and time: 09/27/2021 1:08 AM Age: 41 years old Clinical indication: Other: N/a; Abdominal pain; Localized; Left lower quadrant (llq); Prior surgery; Surgery type: Bilateral lung transplant. Gb. Hysterectomy. Thr. Ureteral stents (removed). Gtube (removed). Patient HX: C/O cough with llq pain. History of cystic fibrosis. ; Additional info: HX cf/lung transplant, sirs, cough, llq abd pain TECHNIQUE: Imaging protocol: Computed tomography of the abdomen and pelvis without contrast. Radiation optimization: All CT scans at this facility use at least one of these dose optimization techniques: automated exposure control; mA and/or kV adjustment per patient size (includes targeted exams where dose is matched to clinical indication); or iterative reconstruction. COMPARISON: CT kidney stone [id number] 04/09/2020 5:13 PM RADIATION DOSE METRICS: Total DLP (mGy-cm): 931.23 FINDINGS: Lungs: The lung bases are clear. No effusion Liver: Normal. No mass. Gallbladder and bile ducts: There has been a cholecystectomy. Pancreas: Pancreas is mostly fatty replaced. Spleen: Normal. No splenomegaly. Adrenal glands: Normal. No mass. Kidneys and ureters: 4 mm nonobstructing left renal pelvis stone. Multiple nonobstructing right renal stones, largest measures 2 mm. Stomach and bowel: Mild amount of formed stool in the colon. Appendix: No evidence of appendicitis. Intraperitoneal space: Unremarkable. No free air. No significant fluid collection. Vasculature: Unremarkable. No abdominal aortic aneurysm. Lymph nodes: Unremarkable. No enlarged lymph nodes. Urinary bladder: Unremarkable as visualized. Reproductive: There has been a hysterectomy. Bones/joints: Severe lumbar dextroscoliosis. There is a left hip prosthesis which obscures portions of the pelvis due to streak artifact. Soft tissues: Unremarkable. CT/[place] [id number] IMPRESSION: 1. Stable multiple nodules in the left upper lobe, most prominent measuring approximately 4 mm. Findings may be secondary to scarring. For patients at low risk (minimal or absent history of smoking and of other known risk factors), no routine follow-up is indicated. For patients at high risk (history of smoking or of other known risk factors), consider optional CT IMPRESSION: 1. Mild constipation. 2. Nonobstructing bilateral renal pelvis stones.
[2021-09-27 00:53] LABS: Magnesium 1.5 mg/dL (1.7-2.3)
[2021-09-27] MEDS: potassium chloride ER 20 mEq Tablet 40 MEQ PO (00:53)
[2021-09-27 00:59] LABS: Lactic Sepsis W/Reflex 2.4 mmol/L (0.5-2.2)
[2021-09-27] MEDS: ondansetron 2 mg/ML SDV 2 mL 4 MG IVP (01:06)
[2021-09-27 01:49] LABS: Adenovirus Not Detected (NOT DETECT); Chlamydia Pneumoniae Not Detected (NOT DETECT); Coronavirus 229E,HKU1,NL63,OC4 Not Detected (NOT DETECT); Human Metapneumovirus Not Detected (NOT DETECT); Human Rhinovirus/Enterovirus Not Detected (NOT DETECT); Influenza A Not Detected (NOT DETECT); Influenza A H1 Not Detected (NOT DETECT); Influenza A H1-2009 Not Detected (NOT DETECT); Influenza A H3 Not Detected (NOT DETECT); Influenza B Not Detected (NOT DETECT); Mycoplasma Pneumoniae Not Detected (NOT DETECT); Parainfluenza Virus Type 1 Not Detected (NOT DETECT); Parainfluenza Virus Type 2 Not Detected (NOT DETECT); Parainfluenza Virus Type 3 Not Detected (NOT DETECT); Parainfluenza Virus Type 4 Not Detected (NOT DETECT); Respiratory Syncytial Virus A Not Detected (NOT DETECT); Respiratory Syncytial Virus B Not Detected (NOT DETECT); SARS-COV-2 Not Detected (NOT DETECT)
[2021-09-27 02:29] LABS: Reflex Lactate Order REFLEX LACTIC ORDERD
--- NOTE | 2021-09-27 04:46 | PM.HP ---
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 Patient states she was in her usual state of health until Saturday when she developed severe fatigue. She states since then she has been sleeping most of the day and taking multiple naps which is very uncommon for her. She endorses associated symptoms of nausea with some mild dry heaves and poor p.o. intake. She reports that she developed a fever above 103 last night which prompted her to seek medical care. Patient endorses a history of nephrolithiasis. She states that current symptoms feel similar to her prior kidney stones. She states she did take a dose of tamsulosin for which she keeps as needed for renal stones. CT the abdomen pelvis revealed mild constipation and nonobstructing bilateral renal pelvic stones. She has a history of cystic fibrosis for which she is undergone a bilateral lung transplant. She endorses a chronic cough. She states when she typically gets pneumonia she will desaturate into the low 90s on SPO2. She denies that happening with her current illness. She reports that she takes Bactrim DS and azithromycin 3 times a week. She does note that she missed a dose of these medications on Saturday. In the ED chest imaging revealed multiple stable nodules likely secondary to scarring. There was a nonspecific 1.2 cm nodule opacity in the right lower lobe which could be secondary to infection. ED provider spoke with [facility] lung transplant physician Dr. Santana Harris who reportedly felt to be appropriate for patient to be admitted. [facility] for IV antibiotics and close monitoring. She denies any recent tick bites, chest pain, rashes or open wounds. Review of Systems Narrative: A complete review of systems was obtained and is negative except as stated in HPI. Medications/Allergies Home Medications Medication Instructions Recorded Confirmed Last Taken Type azithromycin 250 mg tablet See Rx Instructions .ROUTE .COMPLEX 11/09/19 09/25/20 09/23/20 History cetirizine 10 mg tablet (Zyrtec) 10 mg PO DAILY@1900 07/27/20 06/13/21 06/12/21 History [id number] See Rx Instructions .ROUTE .COMPLEX 11/09/19 09/25/20 09/25/20 History 24,000-76,000-120,000 unit capsule,delayed rel (Creon) multivitamin (Multiple Vitamins) 1 tab PO DAILY@69911/09/19 09/25/20 09/25/20 History mycophenolate mofetil 250 mg 750 mg PO BID@0700,189911/09/19 09/25/20 09/25/20 History capsule pantoprazole 40 mg tablet,delayed 40 mg PO DAILY@69911/09/19 09/25/20 09/25/20 History release (Protonix) prednisone 5 mg tablet 5 mg PO DAILY@69911/09/19 09/25/20 09/25/20 History pregabalin 200 mg capsule (Lyrica) 200 mg PO BID@0700,189911/09/19 09/25/20 09/25/20 History sulfamethoxazole 800 See Rx Instructions .ROUTE .COMPLEX 11/09/19 09/25/20 09/23/20 History mg-trimethoprim 160 mg tablet (Bactrim DS) tacrolimus 0.5 mg capsule, See Rx Instructions .ROUTE .COMPLEX 11/09/19 09/25/20 09/25/20 History immediate-release topiramate 50 mg tablet (Topamax) 75 mg PO BEDTIME@189911/09/19 09/25/20 09/24/20 History tramadol 50 mg tablet (Ultram) 50 - 100 mg PO QID PRN 11/09/19 09/25/20 09/25/20 History valacyclovir 500 mg tablet 500 mg PO DAILY@189911/09/19 09/25/20 09/24/20 History vilazodone 20 mg tablet 20 mg PO DAILY@69911/09/19 09/25/20 09/25/20 History vitamin B complex 1 tab PO DAILY@189911/09/19 09/25/20 09/24/20 History oxycodone 5 mg tablet 5 mg PO Q4H PRN 12/06/19 09/25/20 12/06/19 History benzonatate 100 mg capsule 100 mg PO BID PRN #20 cap 09/25/20 Unknown Rx (Tessergio Mcclendon) Allergies Allergy/AdvReac Type Severity Reaction Status Date / Time ceftazidime Allergy ALGY-Anaphy Verified 11/09/19 10:38 laxis ciprofloxacin [From Cipro] Allergy ALGY-Anaphy Verified 11/09/19 10:38 laxis doxycycline Allergy ALGY-Bliste Verified 02/05/20 10:22 r levofloxacin Allergy ALGY-Anaphy Verified 11/09/19 10:38 laxis metoclopramide [From Reglan] Allergy ADR-Halluci Verified 11/09/19 10:38 nating prochlorperazine Allergy ALGY-Anaphy Verified 11/09/19 10:38 [From Compazine] laxis sulfamethoxazole Allergy ALGY-Anaphy Verified 11/09/19 10:38 [From Septra] laxis trimethoprim [From Septra] Allergy ALGY-Anaphy Verified 11/09/19 10:38 laxis PFSH Acute PFSH: Medical History CKD (chronic kidney disease) Cystic fibrosis Hx of ehrlichiosis Lung transplant recipient MRSA infection Nephrolithiasis Surgical History History of hysterectomy History of tracheostomy S/P cholecystectomy Family History (Updated 09/27/21 @ 05:20 by Js Meeks MD) Mother Lupus Social History Smoking and tobacco status: never smoked Alcohol intake: never Substance/Drug Use: never Vitals/I&O/Wt Last Vital Signs Temp 98.4 F 09/27/21 04:16 Pulse 78 09/27/21 04:16 Resp 20 H 09/27/21 04:16 BP 110/69 09/27/21 04:16 Pulse Ox 97 09/27/21 04:16 09/26/21 09/26/21 09/27/21 14:59 22:59 06:59 Intake Total 3. / 1873. Balance 3. / 1872. Weight last 48 hrs Weight 58.967 kg Physical Exam Narrative: General: Patient is awake and alert. Appears fatigued. Pleasant. Head: Normocephalic. Atraumatic. EOM intact. Neck: No JVD. Cardiovascular: RRR. No gallops. No murmurs. No peripheral edema. We will hold sternotomy scar. Lungs: Breath sounds are diminished at bilateral bases. Faint rales. No use of accessory muscles, no crackles or wheezes. On room air. Skin: No jaundice. No rashes. Abdomen: Normal bowel sounds, abdomen soft and slight tenderness to palpation left lower quadrant. Extremeties: No cyanosis. Musculoskeletal: 5/5 strength, normal range of motion, no swollen or erythematous joints. Neurological: Moves all 4 extremities. No myoclonus. Data : 09/26/21 23:35 09/26/21 23:35 Micro: Microbiology 09/26/21 00:17 Blood Culture - Preliminary Blood SPECIMEN COLLECTED 09/26/21 01:14 Blood Culture - Preliminary Blood SPECIMEN COLLECTED A&P Assessment and plan (1) Infection: -Immunocompromise patient presents with several day history of generalized malaise, fatigue, and high fever consistent with infection. -Source of infection unclear, given her history pneumonia remains in the differential however patient lacks significant chest symptoms and chest imaging nonspecific for pneumonia. Urinalysis does have 1+ leukocyte esterase, and 5-10 WBCs, as well as her left lower quadrant abdominal pain further supports diagnosis of UTI -Obtain blood cultures -Obtain urine cultures -Pro-Gamaliel and CRP ordered -Continue imipenem -Start vancomycin given history of MRSA Status: Acute (2) Hypokalemia: -Associated with hypomagnesia -Likely due to poor p.o. intake patient denies significant emesis -Replete potassium and magnesium as needed -Telemetry monitoring -Repeat electrolytes today at noon Status: Acute (3) Dehydration: -With lactic acidosis which resolved with IV fluids -Continue IV fluids -Antiemetics as needed for nausea Status: Acute (4) Hyponatremia: -Consistent with hypovolemic hyponatremia from poor p.o. intake -IV fluids as above -Trend sodium -Avoid overcorrection -Seizure precautions -Repeat electrolytes at noon Status: Acute (5) Constipation: -Start bowel regiment Status: Acute (6) Cystic fibrosis: -With history of bilateral lung transplant -Patient is immunosuppressed -Continue home Creon -Continue home azithromycin and Bactrim DS -Continue home valacyclovir -Continue home tacrolimus -Continue home mycophenolate -Continue home prednisone Status: Acute (7) CKD (chronic kidney disease): -Renal function within recent baseline -Avoid nephrotoxins -Renally dose medications Status: Acute Plan DVT prophylaxis: Lovenox CODE STATUS: Full code Attestations Medical Necessity Statement*: Patient with cystic fibrosis as post bilateral lung transplant on immunosuppression presents with fever, generalized malaise, and abdominal pain with expected hospitalization to cross 2 midnights for diagnosis including cultures and treatment with IV antibiotics Coding Level of Care Code Acute Delinquency Prevention Social Worker for Chg Fwd Diagnoses Constipation K59.00 Dehydration E86.0 Hyponatremia E87.1 Hypokalemia E87.6 Cystic fibrosis E84.9 CKD (chronic kidney disease) N18.9 Infection B99.9
[2021-09-27 05:44] LABS: C Reactive Protein 51.1 mg/L (0.0-4.9)
[2021-09-27 05:52] LABS: Procalcitonin 0.45 ng/mL (0-0.5)
--- NOTE | 2021-09-27 05:57 | PC.PHAR ---
Pharmacokinetic dosing service Date: 09/27/21 Time: 0600 Objective: Patient: Bridgette Davis Floor: [id number] Age: 41 yo Serum creatinine: 1.2 mg/dL Height: 58.0 Inches Weight (kg): 58.967 Diagnosis: Relevant medical/social history: Cultures and sensitivities: Other labs: Assessment: IBW (kg): 43.98 Dosing wt(kg): 58.967 Estimated Creatinine clearance (ml/min): 42.8 CRCL method: Cockcroft and Gault using ibw(default). Drug selected: Vancomycin Loading dose (mg): 0 Vd (liters): 53.1 (factor used: 0.9 L/kg) Gus (hr-1): 0.040 Half life (hrs): 17.33 Recommended dose: 1000 mg Interval: 24 hrs Infusion time (hrs): 1.5 Predicted peak (mcg/mL): 29.6 Predicted trough (mcg/mL): 12.03 Total body weight is being used for vancomycin dosing. Renal function is stable [ ] /unstable [ ] Recommendations: Give Vancomycin 1000 mg q 24 hrs with an expected Cpeak of 29.6 mcg/ml and an expected Ctrough of 12.03 mcg/ml Renal dosing of other antibiotics (review renal dosing of other medications and list guidelines here): Thank you for the consult, will continue to follow. Signature: Radha Avelar [facility]
--- NOTE | 2021-09-27 07:55 | PC.PHAR ---
Addendum entered by Geeta Romo 09/27/21 08:17: ext med history shows last filled 07/29/21 28d/s bactrim ds on sat,sat,sat pt states takes this and azithromycin 500mg on sat and saturday filled on 08/07/21 Original Note: PT VERIFIED HER MEDICATIONS-PT STATES SHE TAKES CREON 4 CAPS WITH EACH MEAL AND ONE CAP WITH TACROLIMUS DOSE AT 07:00-EXT MED HISTORY SHOWS LAST FILLED 4 CAPS TID WITH MEALS AND 2 TIMES DAILY WITH SNACKS FILLED ON 09/05/21 30D/S-EXT MED HISTORY SHOWS LYRICA 100MG BID FILLED 08/14/21 30D/S AND 200MG BID FILLED 08/14/21 30D/S PT STATES SHE JUST TAKES THE 200MG BID-PT STATES SHE TAKES TACROLIMUS 0.5MG TAKES 2 CAPS (1MG) PO QAM AND 1 CAP (0.5MG) AT BEDTIME STATES BEEN TAKING THAT FOR AT LEAST 6 MONTHS EXT MED HISTORY SHOWS LAST FILLED 09/01/21 30D/S FOR 1MG T98S-RD STATES SHE TAKES TOPAMAX 25-50MG HS EXT MED HISTORY DOESNT SHOW WHEN LAST FILLED-PT STATES ITS AN OLD RX SHE JUST CUTS AND TAKES-EXT MED HISTORY SHOWS ULTRAM 50-100MG QID PRN FILLED ON 08/17/21 30D/S PT STATES SHE TAKES 4 TABS (200MG) QAM-EXT MED HISTORY SHOWS VALACYCLOVIR 500MG BID FILLED 09/01/21 30D/S PT STATES SHE JUST TAKES ONE TAB HS-NOTES ARE MADE IN THE PHARMACY COMMENTS
[2021-09-27] MEDS: dextrose 5%-sod chloride 0.45% 1,000 ML 50 ML IV (08:11)
[2021-09-27] MEDS: acetaminophen 325 mg Tablet 650 MG PO ×2 (08:34→11:37)
[2021-09-27] MEDS: sennosides 8.6 mg Tablet 17.2 MG PO ×2 (08:36→18:01)
[2021-09-27] MEDS: sodium chlor 0.9% + KCl 40 mEq 40 MEQ/1,000 ML BAG 75 MEQ IV ×2 (10:56→23:30)
[2021-09-27 12:05] LABS: Anion Gap 15.9 (5-19); Blood Urea Nitrogen 18 mg/dL (6-20); Carbon Dioxide 18 mmol/L (22-29); Chloride 98 mmol/L (98-107); Glomerular Filtration Rate 54.7 mL/min (90-130); Glucose 127 mg/dL (65-115); Iron 21 ug/dL (37-145); NT Pro B Type Natriuretic Pept 1882 pg/mL (0-125); Osmolality Calculated 269 mOsm/kg (285-295); Percent Saturation 10.1 % (20-50); Phosphorus 2.2 mg/dL (2.5-4.5); Potassium 3.9 mmol/L (3.5-5.1); Sodium 128 mmol/L (136-145); Thyroid Stimulating Hormone 1.16 uIU/mL (0.27-4.20); Total Iron Binding Capacity 206 mcg/dl; Unsaturated Iron Binding 185 ug/dL (112-347)
[2021-09-27 14:11] LABS: Influenza A Not Detected (NOT DETECT); Influenza A H1 Not Detected (NOT DETECT); Influenza A H1-2009 Not Detected (NOT DETECT); Influenza A H3 Not Detected (NOT DETECT); Influenza B Not Detected (NOT DETECT); Results from Genmark
[2021-09-27 15:59] LABS: Potassium, Radom Urine 16 mmol/L; Urine Random Sodium 31 mmol/L
[2021-09-27 16:02] LABS: Urine Random Chloride 13 mmol/L
[2021-09-27] MEDS: cetirizine 10 mg Tablet PO (18:02)
[2021-09-27] MEDS: valACYclovir 1,000 mg Tablet 500 MG PO (18:02)
[2021-09-27] MEDS: tacrolimus 0.5 mg Capsule PO (18:04)
[2021-09-27] MEDS: pregabalin 100 mg Capsule 200 MG PO (18:04)
[2021-09-27] MEDS: topiramate 25 mg Tablet 75 MG PO (18:05)
[2021-09-27] MEDS: magnesium hydroxide 30 mL UDC PO (21:27)
[2021-09-27] MEDS: enoxaparin 40 mg/0.4 mL Syringe SUBCUT (21:27)
[2021-09-28] VITALS (14 sets, daily range): BP systolic 99–119; BP diastolic 63–82; PULSE 72–110; RESP 12–20; TEMP 36.8–39.4; O2SAT 93–100
[2021-09-28] MEDS: acetaminophen 325 mg Tablet 650 MG PO ×3 (01:43→18:09)
--- NOTE | 2021-09-28 01:55 | PC.NURSE ---
Reported to nurse-
--- NOTE | 2021-09-28 03:30 | PC.NURSE ---
Pt temp of 100.3 at 0130. Tylenol given at 0143. Temp checked at 0330 and up to 101.4. Ice packs placed under patients arms. Will recheck temp in 45mins-1hr.
[2021-09-28 04:31] LABS: Basophils % 0.3 %; Hematocrit 33.6 % (37.0-47.0); Hemoglobin 11.8 g/dL (11.5-15.3); Lymphocytes # 0.3 10^3/uL (0.8-4.8); Lymphocytes % 10.1 %; Mean Corpuscular HGB Conc 35.1 g/dL (30.0-36.0); Mean Corpuscular Hemoglobin 33.3 pg (28.0-34.0); Mean Corpuscular Volume 94.9 fl (81-99); Mean Platelet Volume 12.6 fL (7.4-10.4); Monocytes # 0.2 10^3/uL (0.2-0.9); Neutrophils # 2.39 10^3/uL (1.8-7.7); Neutrophils % 80.3 %; Nucleated Red Blood Cells % 0 %; Platelet Count 86 10^3/cmm (130-400); Red Blood Count 3.54 10^6/uL (4.1-5.3); Red Cell Distribution Width 15.7 % (12.1-15.1)
[2021-09-28 04:50] LABS: Alanine Aminotransferase 37 U/L (0-33); Albumin Level 2.8 g/dL (3.5-5.2); Alkaline Phosphatase 261 IU/L (35-105); Anion Gap 13.3 (5-19); Aspartate Amino Transferase 59 U/L (0-32); Blood Urea Nitrogen 19 mg/dL (6-20); C Reactive Protein 84.9 mg/L (0.0-4.9); Calcium 8.1 mg/dL (8.5-10.5); Carbon Dioxide 20 mmol/L (22-29); Chloride 106 mmol/L (98-107); Chol HDL Ratio 4.76 mg/dL (0.0-4.40); Cholesterol 81 mg/dL (0-200); Globulin 2.5 g/dL (1.3-4.6); Glomerular Filtration Rate 49.5 mL/min (90-130); Glucose 86 mg/dL (65-115); HDL Cholesterol 17 mg/dL (60-100); LDL Cholesterol Calculated 27 mg/dL (50-129); Magnesium 1.9 mg/dL (1.7-2.3); Osmolality Calculated 282 mOsm/kg (285-295); Potassium 4.3 mmol/L (3.5-5.1); Sodium 135 mmol/L (136-145); Total Bilirubin 0.3 mg/dL (0.15-1.2); Total Protein 5.3 g/dL (6.6-8.7); Triglycerides 184 mg/dL (0-150); VLDL Cholestrol Calculation 37 mg/dL (0-30)
[2021-09-28] MEDS: vancomycin 1,000 MG in sodium chloride 0.9% 250 ML 250 MG IV (05:55)
[2021-09-28] MEDS: TRAMadol 50 mg Tablet PO ×2 (06:16→06:19)
[2021-09-28] MEDS: multivitamin therapeutic Tablet 1 TAB PO (06:17)
[2021-09-28] MEDS: pantoprazole DR 40 mg Tablet PO (06:18)
[2021-09-28] MEDS: predniSONE 5 mg Tablet PO (06:18)
[2021-09-28] MEDS: pregabalin 100 mg Capsule 200 MG PO ×2 (06:19→18:09)
[2021-09-28] MEDS: tacrolimus 0.5 mg Capsule 1 MG PO (06:19)
[2021-09-28] MEDS: sennosides 8.6 mg Tablet 17.2 MG PO (09:03)
--- NOTE | 2021-09-28 10:00 | PC.CHAP ---
Pastoral Care Encounter/Spiritual Assessment Type of Contact [] Declined cost and sales record supervisor visit [] Patient/Family/Request visit [] Outpatient visit [] Follow-up visit [] Physician referral [] Code/Alert [] Routine visit [] Staff referral [] Actively dying [] Patient sleeping [] Family support [] [] Out of room [] Palliative care [] [] Receiving care in room [] Pre-surgical visit [] Trauma [] Long length of stay [] ICU visit [x] Other: Isolation Relational/Emotional Strength [] Patient feels connected with others/family/visitors/staff [] Distress [] Loneliness/isolation [] Abandonment Spirituality of Patient [] Person of Krystle [] Attends Restorationism of their Krystle [] Believes in Prayer [] Reads Bible or Mu-Ism materials [] There are Spiritual issues to be addressed Senior Landscape Architect Interventions [] Prayer [] Active listening [] Non-anxious presence [] Spiritual/emotional support [] Crisis/trauma care [] Spiritual counseling [] Bereavement support [] Provided bereavement packet [] Provided Bible/devotional materials [] Provided toy/stuffed animal, coloring book to patient or family member [] Provided Communion [] Anointing/[place] [] Salvation [] Completed spiritual assessment [] Other: Impact on Illness or Injury [] Angry [] Fearful [] Anxious [] Often cries [] Exhaustion [] Unable to work [] Unable to attend voodoo [] Unable to walk/stand [] Unable to read [] Unable to drive [] Unable to eat/drink [] Unable to sleep [] Unable to be with family [] Patient intubated [] Other: Summary Isolation Time spent with patient 5 mins
[2021-09-28 15:02] LABS: Rapid Strep A Test Negative (Negative)
--- NOTE | 2021-09-28 15:09 | PM.PN ---
Subjective Subjective: Today morning seen sitting in chair. Complaining of right groin and flank pain aggravated on standing up. States had bowel movement after bowel regimen yesterday. Denies dysuria. Denies nausea vomiting, headache. Has remained hemodynamically stable. T-max 101.4 overnight. Afebrile since morning. Vitals/I&O/Wt Last Vital Signs Temp 98.2 F 09/28/21 12:00 Pulse 73 09/28/21 12:00 Resp 18 09/28/21 12:00 BP 108/72 09/28/21 12:00 Pulse Ox 96 09/28/21 12:00 09/28/21 09/28/21 09/28/21 06:59 14:59 22:59 Intake Total 1282.5 / 2640.0 1290 / 1290 Output Total 1400 / 2800 700 / 700 Balance -117.5 / -160.0 590 / 590 Weight last 48 hrs Weight 58.967 kg Physical Exam Narrative: General: Patient is awake and alert. Appears fatigued. Pleasant. Head: Normocephalic. Atraumatic. EOM intact. Neck: No JVD. Cardiovascular: RRR. No gallops. No murmurs. No peripheral edema. We will hold sternotomy scar. Lungs: Breath sounds are diminished at bilateral bases. Faint rales. No use of accessory muscles, no crackles or wheezes. On room air. Skin: No jaundice. No rashes. Abdomen: Normal bowel sounds, abdomen soft and slight tenderness to palpation left lower quadrant. Extremeties: No cyanosis. Musculoskeletal: 5/5 strength, normal range of motion, no swollen or erythematous joints. Neurological: Moves all 4 extremities. No myoclonus. Data : 09/28/21 03:55 09/28/21 03:55 Micro: Microbiology 09/27/21 14:30 MRSA Culture - Final Nose 09/28/21 11:17 Blood Culture - Preliminary Blood SPECIMEN COLLECTED 09/28/21 11:11 Blood Culture - Preliminary Blood SPECIMEN COLLECTED 09/27/21 15:15 Urine Culture - Preliminary Urine,Clean Catch 09/26/21 00:17 Blood Culture - Preliminary Blood NEGATIVE TO DATE 09/26/21 01:14 Blood Culture - Preliminary Blood NEGATIVE TO DATE 09/26/21 23:21 Bacterial Antigens - Final Urine Kidney 09/26/21 23:21 Legionella Urinary Antigen - Final Unknown Source A&P Assessment and plan (1) Sepsis: Present on admission. Ruled in by high-grade fever, tachycardia, acute kidney injury. Unknown source for now. Monitor blood culture, urine culture. Viral panel negative. UA currently negative for any signs of infection. Urine Legionella bacterial antigen negative. Repeat blood cultures. Repeat blood culture if fever more than 101 Fahrenheit. Check strep throat. Given immunocompromise status secondary to lung transplant for now cover with broad-spectrum antibiotics including vancomycin and imipenem. MRSA negative. Can plan to discontinue vancomycin in the next 24 hours. Continue with other chronic medications for immunosuppression including valacyclovir 500 mg, Bactrim DS 1 tablet Saturday, Saturday, Saturday, azithromycin 3 times a week. Cannot rule out viral gastroenteritis being the cause of presentation. Status: Acute (2) CKD (chronic kidney disease): Creatinine ranging from 1.1-1.4 in the past. As high as 2 in 2020. Currently creatinine 1.2. Medical reconciliation done for nephrotoxic drugs. Monitor daily. Status: Acute (3) History of lung transplant: Status: Acute (4) Immunosuppressed status: Status: Acute (5) Leukopenia: Most likely secondary to sepsis. Continue to monitor for neutropenia. Status: Acute (6) Thrombocytopenia: Stop Lovenox. Switch to heparin 5000 every 12 hourly. Monitor for bleeding for drop in platelets. Status: Acute (7) Hyponatremia: Present admission secondary dehydration. Corrected with IV hydration. Encourage oral intake. Stop IV fluids. Status: Acute (8) Hypokalemia: Resolved. Most likely present on admission from excessive emesis. Status: Acute (9) Cystic fibrosis: Bilateral lung transplant. -Continue home tacrolimus -Continue home mycophenolate -Continue home prednisone Status: Acute Plan Analgesia: Tylenol, oxycodone IR 5 mg every 4 hour as needed, pregabalin 200 mg twice daily, Tramadol 50 mg 4 times daily as needed at home dose Gycemic control: Not needed Nutrition: Regular diet CODE STATUS: Full code PUD prophylaxis: Protonix DVT prophylaxis: Heparin 5000 daily. Discharge planning: Patient has been accepted at [facility] with primary lung Tansplant team. Awaiting bed. Continue with care at [facility] floor. Attestations Medical Necessity Statement*: Requires further hospitalization for management of sepsis in setting of immunocompromise status due to post lung transplant status in patient with baseline cystic fibrosis disease. Time Spent in Patient Care: Greater than 35 minutes Coding Level of Care Code Acute Ethnology Teacher for Chg Fwd Diagnoses Hypokalemia E87.6 Hyponatremia E87.1 Cystic fibrosis E84.9 CKD (chronic kidney disease) N18.9 Sepsis A41.9 History of lung transplant Z94.2 Immunosuppressed status D84.9 Leukopenia D72.819 Thrombocytopenia D69.6
--- NOTE | 2021-09-28 17:22 | PM.TDS ---
Transfer Summary Providers Date of Admission: 09/27/21 04:42 Date of Discharge/Transfer: 09/28/21 Attending Provider at Admission: Js Meeks MD Attending Provider at Transfer: Stef Kennedy MD Primary Care Provider: Scottie Herrera MD Transfer Plans: Anticipated date of transfer: 09/28/21. Receiving Facility: [facility]-transplant team. Receiving Provider: Dr. Dillon. 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 Patient states she was in her usual state of health until Saturday when she developed severe fatigue.? She states since then she has been sleeping most of the day and taking multiple naps which is very uncommon for her.? She endorses associated symptoms of nausea with some mild dry heaves and poor p.o. intake.? She reports that she developed a fever above 103 last night which prompted her to seek medical care. Patient endorses a history of nephrolithiasis.? She states that current symptoms feel similar to her prior kidney stones.? She states she did take a dose of tamsulosin for which she keeps as needed for renal stones.? CT the abdomen pelvis revealed mild constipation and nonobstructing bilateral renal pelvic stones. She has a history of cystic fibrosis for which she is undergone a bilateral lung transplant.? She endorses a chronic cough.? She states when she typically gets pneumonia she will desaturate into the low 90s on SPO2.? She denies that happening with her current illness.? She reports that she takes Bactrim DS and azithromycin 3 times a week.? She does note that she missed a dose of these medications on Saturday.? In the ED chest imaging revealed multiple stable nodules likely secondary to scarring.? There was a nonspecific 1.2 cm nodule opacity in the right lower lobe which could be secondary to infection.? ED provider spoke with [facility] transplant physician Dr. Santana Harris who reportedly felt to be appropriate for patient to be admitted.? [facility] for IV antibiotics and close monitoring. She denies any recent tick bites, chest pain, rashes or open wounds. Hospital Course Hospital Course Patient admitted to hospital further evaluation and management of sepsis in setting of renal compromise status from both lung transplant for cystic fibrosis, acute kidney injury and hyponatremia. Started on broad-spectrum antibiotics and IV hydration. Her hyponatremia resolved and creatinine is back to her baseline. Patient continues to spike high-grade fevers. Her blood cultures so far remain negative. Viral panel has been negative with negative COVID-19 pneumonia PCR, negative urine Legionella and bacterial antigen, negative MRSA PCR. Patient continues to have lower quadrant abdominal pain which is most likely secondary to nephrolithiasis versus possible colitis. Given lung transplant status further care were discussed with patient's primary lung transplant team at [facility] who accepted the patient's care. She has been transferred in hemodynamically stable condition for further management. Physical Exam Narrative: General: Patient is awake and alert. Appears fatigued. Pleasant. Head: Normocephalic. Atraumatic. EOM intact. Neck: No JVD. Cardiovascular: RRR. No gallops. No murmurs. No peripheral edema. We will hold sternotomy scar. Lungs: Breath sounds are diminished at bilateral bases. Faint rales. No use of accessory muscles, no crackles or wheezes. On room air. Skin: No jaundice. No rashes. Abdomen: Normal bowel sounds, abdomen soft and slight tenderness to palpation left lower quadrant. Extremeties: No cyanosis. Musculoskeletal: 5/5 strength, normal range of motion, no swollen or erythematous joints. Neurological: Moves all 4 extremities. No myoclonus. TS Data Studies Completed and Pending Pending at discharge Category Date Time Status CT abdomen pelvis wo con [id number] Routine Cat Scan 09/28/21 15:06 Ordered Blood Culture Stat Lab 09/26/21 00:17 Results Blood Culture Stat Lab 09/28/21 11:17 Results C Reactive Protein Q48H Lab 09/30/21 04:00 Ordered Complete Blood Count w/Auto AM LABS Lab 09/29/21 04:00 Ordered Comprehensive Metabolic Panel AM LABS Lab 09/29/21 04:00 Ordered Sputum Culture and Gram Stain Stat Lab 09/27/21 14:16 Uncollected Streptococcus Culture Group A Routine Lab 09/28/21 13:13 Received Streptococcus Culture Group A Routine Lab 09/28/21 13:13 Received Urine Culture Stat Lab 09/27/21 15:15 Results Labs from last 24 hours 09/28/21 09/28/21 09/28/21 13:13 03:55 03:55 WBC 3.0 L RBC 3.54 L Hgb 11.8 Hct 33.6 L MCV 94.9 MCH 33.3 MCHC 35.1 RDW 15.7 H Plt Count 86 L D MPV 12.6 H Neut % (Auto) 80.3 Lymph % (Auto) 10.1 [place] % (Auto) 7.0 Eos % (Auto) 0.0 Baso % (Auto) 0.3 Neut # (Auto) 2.39 Lymph # (Auto) 0.3 L [place] # (Auto) 0.2 Eos # (Auto) 0.0 Baso # (Auto) 0.0 Nucleated RBC % (auto) 0 Nucleated RBCs # 0.0 Sodium Cancelled Potassium Cancelled Chloride Cancelled Carbon Dioxide Cancelled Anion Gap Cancelled BUN Cancelled Creatinine Cancelled GFR Calculation Cancelled Glucose Cancelled Calculated Osmolality Cancelled Calcium Cancelled Phosphorus Cancelled Magnesium Cancelled Total Bilirubin Cancelled AST Cancelled ALT Cancelled Alkaline Phosphatase Cancelled C-Reactive Protein Total Protein Cancelled Albumin Cancelled Globulin Cancelled Triglycerides Cholesterol LDL Cholesterol, Calc Total VLDL Cholesterol HDL Cholesterol Cholesterol/HDL Ratio Group A Strep Rapid Negative 09/28/21 03:55 WBC RBC Hgb Hct MCV MCH MCHC RDW Plt Count MPV Neut % (Auto) Lymph % (Auto) [place] % (Auto) Eos % (Auto) Baso % (Auto) Neut # (Auto) Lymph # (Auto) [place] # (Auto) Eos # (Auto) Baso # (Auto) Nucleated RBC % (auto) Nucleated RBCs # Sodium 135 L Potassium 4.3 Chloride 106 Carbon Dioxide 20 L Anion Gap 13.3 BUN 19 Creatinine 1.2 H GFR Calculation 49.5 L Glucose 86 Calculated Osmolality 282 L Calcium 8.1 L Phosphorus 2.0 L Magnesium 1.9 Total Bilirubin 0.3 AST 59 H ALT 37 H Alkaline Phosphatase 261 H C-Reactive Protein 84.9 H Total Protein 5.3 L Albumin 2.8 L Globulin 2.5 Triglycerides 184 H Cholesterol 81 LDL Cholesterol, Calc 27 L Total VLDL Cholesterol 37 H HDL Cholesterol 17 L Cholesterol/HDL Ratio 4.76 H Group A Strep Rapid Completed Studies During Hospitalization Category [place] [id number] Stat Cat Scan 09/27/21 00:48 Completed Laboratory Last Values WBC 3.0 10^3/uL (4.0-10.0) L 09/28/21 03:55 RBC 3.54 10^6/uL (4.1-5.3) L 09/28/21 03:55 Hgb 11.8 g/dL (11.5-15.3) 09/28/21 03:55 Hct 33.6 % (37.0-47.0) L 09/28/21 03:55 MCV 94.9 fl (81-99) 09/28/21 03:55 MCH 33.3 pg (28.0-34.0) 09/28/21 03:55 MCHC 35.1 g/dL (30.0-36.0) 09/28/21 03:55 RDW 15.7 % (12.1-15.1) H 09/28/21 03:55 Plt Count 86 10^3/cmm (130-400) L D 09/28/21 03:55 MPV 12.6 fL (7.4-10.4) H 09/28/21 03:55 Neut % (Auto) 80.3 % 09/28/21 03:55 Lymph % (Auto) 10.1 % 09/28/21 03:55 [place] % (Auto) 7.0 % 09/28/21 03:55 Eos % (Auto) 0.0 % 09/28/21 03:55 Baso % (Auto) 0.3 % 09/28/21 03:55 Neut # (Auto) 2.39 10^3/uL (1.8-7.7) 09/28/21 03:55 Lymph # (Auto) 0.3 10^3/uL (0.8-4.8) L 09/28/21 03:55 [place] # (Auto) 0.2 10^3/uL (0.2-0.9) 09/28/21 03:55 Eos # (Auto) 0.0 10^3/uL (0.0-0.8) 09/28/21 03:55 Baso # (Auto) 0.0 10^3/uL (0.0-0.1) 09/28/21 03:55 Nucleated RBC % (auto) 0 % 09/28/21 03:55 Nucleated RBCs # 0.0 /100WBC 09/28/21 03:55 Sodium 135 mmol/L (136-145) L 09/28/21 03:55 Sodium Cancelled 09/28/21 03:55 Potassium 4.3 mmol/L (3.5-5.1) 09/28/21 03:55 Potassium Cancelled 09/28/21 03:55 Chloride 106 mmol/L (98-107) 09/28/21 03:55 Chloride Cancelled 09/28/21 03:55 Carbon Dioxide 20 mmol/L (22-29) L 09/28/21 03:55 Carbon Dioxide Cancelled 09/28/21 03:55 Anion Gap 13.3 (5-19) 09/28/21 03:55 Anion Gap Cancelled 09/28/21 03:55 BUN 19 mg/dL (6-20) 09/28/21 03:55 BUN Cancelled 09/28/21 03:55 Creatinine 1.2 mg/dL (0.5-0.9) H 09/28/21 03:55 Creatinine Cancelled 09/28/21 03:55 GFR Calculation 49.5 mL/min (90-130) L 09/28/21 03:55 GFR Calculation Cancelled 09/28/21 03:55 Glucose 86 mg/dL (65-115) 09/28/21 03:55 Glucose Cancelled 09/28/21 03:55 Calculated Osmolality 282 mOsm/kg (285-295) L 09/28/21 03:55 Calculated Osmolality Cancelled 09/28/21 03:55 Lactic Acid 2.4 mmol/L (0.5-2.2) H 09/27/21 00:14 Lactic Acid (Sepsis) 1.0 mmol/L (0.5-2.2) 09/27/21 04:03 Calcium 8.1 mg/dL (8.5-10.5) L 09/28/21 03:55 Calcium Cancelled 09/28/21 03:55 Phosphorus 2.0 mg/dL (2.5-4.5) L 09/28/21 03:55 Phosphorus Cancelled 09/28/21 03:55 Magnesium 1.9 mg/dL (1.7-2.3) 09/28/21 03:55 Magnesium Cancelled 09/28/21 03:55 Iron 21 ug/dL (37-145) L 09/27/21 11:20 TIBC 206 mcg/dl 09/27/21 11:20 % Saturation 10.1 % (20-50) L 09/27/21 11:20 Unsat Iron Binding 185 ug/dL (112-347) 09/27/21 11:20 Total Bilirubin 0.3 mg/dL (0.15-1.2) 09/28/21 03:55 Total Bilirubin Cancelled 09/28/21 03:55 AST 59 U/L (0-32) H 09/28/21 03:55 AST Cancelled 09/28/21 03:55 ALT 37 U/L (0-33) H 09/28/21 03:55 ALT Cancelled 09/28/21 03:55 Alkaline Phosphatase 261 IU/L (35-105) H 09/28/21 03:55 Alkaline Phosphatase Cancelled 09/28/21 03:55 C-Reactive Protein 84.9 mg/L (0.0-4.9) H 09/28/21 03:55 NT-Pro-B Natriuret Pep 1882 pg/mL (0-125) H 09/27/21 11:20 Total Protein 5.3 g/dL (6.6-8.7) L 09/28/21 03:55 Total Protein Cancelled 09/28/21 03:55 Albumin 2.8 g/dL (3.5-5.2) L 09/28/21 03:55 Albumin Cancelled 09/28/21 03:55 Globulin 2.5 g/dL (1.3-4.6) 09/28/21 03:55 Globulin Cancelled 09/28/21 03:55 Triglycerides 184 mg/dL (0-150) H 09/28/21 03:55 Cholesterol 81 mg/dL (0-200) 09/28/21 03:55 LDL Cholesterol, Calc 27 mg/dL (50-129) L 09/28/21 03:55 Total VLDL Cholesterol 37 mg/dL (0-30) H 09/28/21 03:55 HDL Cholesterol 17 mg/dL (60-100) L 09/28/21 03:55 Cholesterol/HDL Ratio 4.76 mg/dL (0.0-4.40) H 09/28/21 03:55 Lipase 5 U/L (13-60) L 09/26/21 23:35 Procalcitonin 0.39 ng/mL (0-0.5) 09/26/21 23:35 Procalcitonin 0.45 ng/mL (0-0.5) 09/26/21 23:35 TSH 1.16 uIU/mL (0.27-4.20) 09/27/21 11:20 HCG, Qual Negative (Negative) 09/26/21 23:21 Urine Color Colorless (Yellow) 09/26/21 23:21 Urine Appearance Clear (CLEAR) 09/26/21 23:21 Urine pH 6 (5-7) 09/26/21 23:21 Ur Specific [place] 1.005 (1.005-1.030) 09/26/21 23:21 Urine Protein Neg (Negative) 09/26/21 23:21 Urine Glucose (UA) Norm (Normal) 09/26/21 23:21 Urine Ketones Negative (Negative) 09/26/21 23:21 Urine Blood Neg (Negative) 09/26/21 23:21 Urine Nitrate Negative (Negative) 09/26/21 23:21 Urine Bilirubin Neg (Negative) 09/26/21 23:21 Urine Urobilinogen Norm mg/dL (Negative) 09/26/21 23:21 Ur Leukocyte Esterase 1+ (Negative) H 09/26/21 23:21 Urine RBC 0-4 /hpf (0-2) H 09/26/21 23:21 Urine WBC 5-10 /hpf (0-5) H 09/26/21 23:21 Ur Squamous Epith Cells 0-4 /hpf (0-5) H 09/26/21 23:21 Amorphous Sediment Not Reportable 09/26/21 23:21 Urine Bacteria Trace /hpf (NONE) 09/26/21 23:21 Ur Random Sodium 31 mmol/L 09/27/21 15:15 Ur Random Potassium 16 mmol/L 09/27/21 15:15 Ur Random Chloride 13 mmol/L 09/27/21 15:15 Nasal Influ A H1 2009 PCR Not detected (NOT DETECT) 09/26/21 23:46 Coronavirus 229E (PCR) Not detected (NOT DETECT) 09/26/21 23:46 Influenza A (H1) PCR Not detected (NOT DETECT) 09/26/21 23:46 Influenza A (H3) PCR Not detected (NOT DETECT) 09/26/21 23:46 Influenza Type A (PCR) Not detected (NOT DETECT) 09/26/21 23:46 Influenza Type B (PCR) Not detected (NOT DETECT) 09/26/21 23:46 SARS-CoV-2 (PCR) Not detected (NOT DETECT) 09/26/21 23:46 Group A Strep Rapid Negative (Negative) 09/28/21 13:13 Radiology Impressions Chest/Abdomen/Pelvis CT 09/27/21 00:48 IMPRESSION: 1. Stable multiple nodules in the left upper lobe, most prominent measuring approximately 4 mm. Findings may be secondary to scarring. For patients at low risk (minimal or absent history of smoking and of other known risk factors), no routine follow-up is indicated. For patients at high risk (history of smoking or of other known risk factors), consider optional CT IMPRESSION: 1. Mild constipation. 2. Nonobstructing bilateral renal pelvis stones. Recent Clincial Data Last Vital Signs Temp 98.6 F 09/28/21 16:00 Pulse 80 09/28/21 16:22 Resp 12 09/28/21 16:00 BP 119/80 09/28/21 16:00 Pulse Ox 98 09/28/21 16:00 Vital Signs Temp Pulse Resp BP Pulse Ox 09/28/21 16:22 80 09/28/21 16:00 98.6 F 87 12 119/80 98 09/28/21 12:00 98.2 F 73 18 108/72 96 09/28/21 07:56 98.3 F 81 16 113/72 97 09/28/21 05:38 73 Intake & Output/Weight 09/26/21 09/27/21 09/28/21 09/29/21 06:59 06:59 06:59 06:59 Intake Total 1972. 2640.0 / 2640.0 1290 / 1290 Output Total 2800 / 2800 1600 / 1600 Balance -160.0 / -160.0 -310 / -310 Weight 58.967 kg Vitals Last Vital Signs Temp 98.6 F 09/28/21 16:00 Pulse 80 09/28/21 16:22 Resp 12 09/28/21 16:00 BP 119/80 09/28/21 16:00 Pulse Ox 98 09/28/21 16:00 TS Medications Medications Acetaminophen (Acetaminophen 325 Mg Tablet) 650 mg PO Q6H PRN PRN Reason: Mild/Mod Pain Or Temp >/= 101 Last Admin: 09/28/21 09:03 Dose: 650 mg Documented by: Albuterol Sulfate (Albuterol 8 Gm Mdi) 2 puff INHALATION Q4H.RESPIRATORY PRN PRN Reason: SHORTNESS OF BREATH Azithromycin (Azithromycin 250 Mg Tablet) 250 mg PO MoWeFr [facility]; Protocol Last Admin: 09/27/21 09:36 Dose: Not Given Documented by: Benzonatate (Benzonatate 100 Mg Capsule) 100 mg PO BID PRN PRN Reason: cough Cetirizine HCl (Cetirizine 10 Mg Tablet) 10 mg PO DAILY@1900 [facility] Last Admin: 09/27/21 18:02 Dose: 10 mg Documented by: Heparin Sodium (Porcine) (Heparin 5,000 Unit/Ml Inj 1 Ml) 5,000 unit SUBCUT Q12H [facility] Vancomycin HCl 1,000 mg/ (Sodium Chloride) 250 mls @ 250 mls/hr IV Q24H [facility] Last Infusion: 09/28/21 08:00 Dose: Infused Documented by: Imipenem/Cilastatin Sodium 250 (mg/ Sodium Chloride) 100 mls @ 200 mls/hr IV Q6H [facility] Last Infusion: 09/28/21 14:53 Dose: Infused Documented by: Magnesium Hydroxide (Magnesium Hydroxide 30 Ml Udc) 30 ml PO BEDTIME [facility] Last Admin: 09/27/21 21:27 Dose: 30 ml Documented by: Miconazole Nitrate (Miconazole 2% Vaginal Cream 45 Gm) 1 appful VAGINAL BEDTIME [facility] Stop: 10/04/21 21:01 Multivitamins Therapeutic (Multivitamin Therapeutic Tablet) 1 tab PO DAILY@0700 [facility] Last Admin: 09/28/21 06:17 Dose: 1 tab Documented by: Mycophenolate Mofetil (Mycophenolate Mofetil 500 Mg Tablet) 750 mg PO BID@0700,1900 [facility] Last Admin: 09/28/21 06:22 Dose: Not Given Documented by: Non-Formulary Medication ([id number] [Creon]) 0 unit PO .COMPLEX [facility] Non-Formulary Medication (Vilazodone) 20 mg PO DAILY@0700 [facility] Last Admin: 09/28/21 06:22 Dose: Not Given Documented by: Non-Formulary Medication (Vitamin B Complex) 1 tab PO DAILY@1899 [facility] Last Admin: 09/27/21 18:15 Dose: Not Given Documented by: Ondansetron HCl (Ondansetron 2 Mg/Ml Sdv 2 Ml) 4 mg IVP Q8H PRN PRN Reason: vomiting, or N/V if npo Oxycodone HCl (Oxycodone 5 Mg Ir Tab/Cap) 5 mg PO Q4H PRN PRN Reason: Pain Pantoprazole Sodium (Pantoprazole Dr 40 Mg Tablet) 40 mg PO DAILY@07 [facility] Last Admin: 09/28/21 06:18 Dose: 40 mg Documented by: Prednisone (Prednisone 5 Mg Tablet) 5 mg PO DAILY@0700 [facility] Last Admin: 09/28/21 06:18 Dose: 5 mg Documented by: Pregabalin (Pregabalin 100 Mg Capsule) 200 mg PO BID@0700,1900 [facility] Last Admin: 09/28/21 06:19 Dose: 200 mg Documented by: Senna (Sennosides 8.6 Mg Tablet) 17.2 mg PO BID [facility] Last Admin: 09/28/21 09:03 Dose: 17.2 mg Documented by: Tacrolimus (Tacrolimus 0.5 Mg Capsule) 1 mg PO DAILY@0700 [facility] Last Admin: 09/28/21 06:19 Dose: 1 mg Documented by: Tacrolimus (Tacrolimus 0.5 Mg Capsule) 0.5 mg PO DAILY@190 [facility] Last Admin: 09/27/21 18:04 Dose: 0.5 mg Documented by: Topiramate (Topiramate 25 Mg Tablet) 75 mg PO BEDTIME@1900 [facility] Last Admin: 09/27/21 18:05 Dose: 75 mg Documented by: Tramadol HCl (Tramadol 50 Mg Tablet) 50 - 100 mg PO QID PRN PRN Reason: Pain Last Admin: 09/28/21 06:19 Dose: 100 mg Documented by: Trimethoprim/Sulfamethoxazole (Sulfamethoxazole-Trimeth Ds 160-800 Mg Tablet) 1 tab PO MoWeFr [facility]; Protocol Last Admin: 09/27/21 09:36 Dose: Not Given Documented by: Valacyclovir HCl (Valacyclovir 1,000 Mg Tablet) 500 mg PO DAILY@1900 [facility] Last Admin: 09/27/21 18:02 Dose: 500 mg Documented by: Discontinued Medications Acetaminophen (Acetaminophen 325 Mg Tablet) 650 mg PO ONCE ONE Stop: 09/26/21 23:36 Last Admin: 09/27/21 00:44 Dose: Not Given Documented by: Enoxaparin Sodium (Enoxaparin 40 Mg/0.4 Ml Syringe) 40 mg SUBCUT BEDTIME [facility] Last Admin: 09/27/21 21:27 Dose: 40 mg Documented by: Sodium Chloride (Sodium Chloride 0.9%) 1,769.01 mls @ 1,769.01 mls/hr IV .Q1H ONE Stop: 09/27/21 00:32 Last Infusion: 09/27/21 01:42 Dose: Infused Documented by: Magnesium Sulfate 1 gm/ Sodium (Chloride) 52 mls @ 104 mls/hr IV ONCE ONE Stop: 09/27/21 00:53 Last Infusion: 09/27/21 01:42 Dose: Infused Documented by: Magnesium Sulfate 1 gm/ Sodium (Chloride) 52 mls @ 104 mls/hr IV ONCE ONE Stop: 09/27/21 02:22 Last Infusion: 09/27/21 04:17 Dose: Infused Documented by: Imipenem/Cilastatin Sodium 500 (mg/ Sodium Chloride) 100 mls @ 200 mls/hr IV ONCE ONE Stop: 09/27/21 05:03 Last Infusion: 09/27/21 05:25 Dose: Infused Documented by: Vancomycin HCl 1,500 mg/ (Sodium Chloride) 250 mls @ 166.667 mls/hr IV ONCE ONE Stop: 09/27/21 06:44 Last Infusion: 09/27/21 07:39 Dose: Infused Documented by: Dextrose/Sodium Chloride (Dextrose 5%-Sod Chloride 0.45%) 1,000 mls @ 50 mls/hr IV .Q20H [facility] Last Infusion: 09/27/21 09:56 Dose: Infused Documented by: Imipenem/Cilastatin Sodium 500 (mg/ Sodium Chloride) 100 mls @ 200 mls/hr IV Q6H [facility] Last Infusion: 09/28/21 05:37 Dose: Infused Documented by: Potassium Chloride/Sodium Chloride (Sodium Chlor 0.9% + Kcl 40 Meq) 40 meq in 1,000 mls @ 75 mls/hr IV .[id number] [facility] Last Infusion: 09/28/21 14:56 Dose: Infused Documented by: Ondansetron HCl (Ondansetron 2 Mg/Ml Sdv 2 Ml) 4 mg IVP ONCE ONE Stop: 09/27/21 00:57 Last Admin: 09/27/21 01:06 Dose: 4 mg Documented by: Potassium Chloride (Potassium Chloride Er 20 Meq Tablet) 40 meq PO ONCE ONE Stop: 09/27/21 00:25 Last Admin: 09/27/21 00:53 Dose: 40 meq Documented by: Allergies ceftazidime Allergy (Verified 09/27/21 07:36) ALGY-Anaphylaxis ciprofloxacin [From Cipro] Allergy (Verified 09/27/21 07:36) ALGY-Anaphylaxis doxycycline Allergy (Verified 09/27/21 07:36) ALGY-Blister levofloxacin Allergy (Verified 09/27/21 07:36) ALGY-Anaphylaxis metoclopramide [From Reglan] Allergy (Verified 09/27/21 07:36) ADR-Hallucinating prochlorperazine [From Compazine] Allergy (Verified 09/27/21 07:36) ALGY-Anaphylaxis sulfamethoxazole [From Septra] Allergy (Verified 09/27/21 07:36) ALGY-Anaphylaxis trimethoprim [From Septra] Allergy (Verified 09/27/21 07:36) ALGY-Anaphylaxis Home Medications cetirizine 10 mg tablet (Zyrtec) 10 mg PO DAILY@1900 11/09/19 [History Confirmed 09/27/21] [id number] 24,000-76,000-120,000 unit capsule,delayed rel (Creon) See Rx Instructions .ROUTE .COMPLEX 11/09/19 [History Confirmed 09/27/21] multivitamin (Multiple Vitamins) 1 tab PO DAILY@0700 11/09/19 [History Confirmed 09/27/21] mycophenolate mofetil 250 mg capsule 750 mg PO BID@0700,1900 07/27/20 [History Confirmed 09/27/21] pantoprazole 40 mg tablet,delayed release (Protonix) 40 mg PO DAILY@69911/09/19 [History Confirmed 09/27/21] prednisone 5 mg tablet 5 mg PO DAILY@69911/09/19 [History Confirmed 09/27/21] pregabalin 200 mg capsule (Lyrica) 200 mg PO BID@0700,189911/09/19 [History Confirmed 09/27/21] sulfamethoxazole 800 mg-trimethoprim 160 mg tablet (Bactrim DS) 1 tab PO .ON SAT,SAT,Sat11/09/19 [History Confirmed 09/27/21] tacrolimus 0.5 mg capsule, immediate-release See Rx Instructions .ROUTE .COMPLEX 11/09/19 [History Confirmed 09/27/21] tramadol 50 mg tablet (Ultram) 200 mg PO DAILY@11/09/19 [History Confirmed 09/27/21] valacyclovir 500 mg tablet 500 mg PO DAILY@189911/09/19 [History Confirmed 09/27/21] vilazodone 20 mg tablet 20 mg PO DAILY@69911/09/19 [History Confirmed 09/27/21] albuterol sulfate 90 mcg/actuation aerosol inhaler (ProAir HFA) 2 puff INHALATION QID PRN 09/27/21 [History Confirmed 09/27/21] amlodipine 5 mg tablet 5 mg PO BEDTIME 09/27/21 [History Confirmed 09/27/21] azithromycin 500 mg tablet 500 mg PO .ON SAT,SAT, Sat09/27/21 [History Confirmed 09/27/21] baclofen 10 mg tablet 10 mg PO QID PRN 09/27/21 [History Confirmed 09/27/21] fluticasone propionate 110 mcg/actuation HFA aerosol inhaler (Flovent HFA) 2 puff INHALATION BID PRN 09/27/21 [History Confirmed 09/27/21] fluticasone propionate 50 mcg/actuation nasal spray,suspension 2 spray INTRANASAL DAILY PRN 09/27/21 [History Confirmed 09/27/21] losartan 50 mg tablet 50 mg PO BEDTIME 09/27/21 [History Confirmed 09/27/21] naloxone 4 mg/actuation nasal spray (Narcan) 4 mg INTRANASAL Q2M PRN 09/27/21 [History Confirmed 09/27/21] oxycodone 5 mg tablet 5 mg PO BID PRN 09/27/21 [History Confirmed 09/27/21] topiramate 100 mg tablet (Topamax) 25 - 50 mg PO BEDTIME 09/27/21 [History Confirmed 09/27/21] Discharge Plan Discharge Patient Disposition: Home Condition: Stable Prescriptions: No Action multivitamin [Multiple Vitamins] Tablet 1 tab PO DAILY@0700 0RF cetirizine [Zyrtec] 10 mg Tablet 10 mg PO DAILY@1900 0RF mycophenolate mofetil 250 mg Capsule 750 mg PO BID@0700,1900 0RF prednisone 5 mg Tablet 5 mg PO DAILY@0700 0RF valacyclovir 500 mg Tablet 500 mg PO DAILY@1900 0RF sulfamethoxazole-trimethoprim [Bactrim DS] 800-160 mg Tablet 1 tab PO .ON MON,WED,FRI 0RF tramadol [Ultram] 50 mg Tablet 200 mg PO DAILY@07 0RF pantoprazole [Protonix] 40 mg Tablet,Delayed Release (Dr/Ec) 40 mg PO DAILY@0700 0RF tacrolimus 0.5 mg Capsule See Rx Instructions .ROUTE .COMPLEX 0RF Rx Instructions: 1mg po AT 0700 and 0.5mg po AT 1900 pregabalin [Lyrica] 200 mg Capsule 200 mg PO BID@0700,1900 0RF Creon 24,000-76,000 -120,000 unit Capsule,Delayed Release(Dr/Ec) See Rx Instructions .ROUTE .COMPLEX 0RF Rx Instructions: 4 CAPS PO WITH EACH MEAL AND 1 CAP WITH THE TACROLIMUS DOSE AT 0700 vilazodone 20 mg Tablet 20 mg PO DAILY@0700 0RF losartan 50 mg tablet 50 mg PO BEDTIME 0RF amlodipine 5 mg tablet 5 mg PO BEDTIME 0RF baclofen 10 mg tablet 10 mg PO QID PRN (Reason: Muscle Spasticity) 0RF ProAir HFA 90 mcg/actuation HFA aerosol inhaler 2 puff INHALATION QID PRN (Reason: Shortness Of Breath) 0RF Topamax 100 mg Tablet 25 - 50 mg PO BEDTIME 0RF fluticasone propionate 50 mcg/actuation spray,suspension 2 spray INTRANASAL DAILY PRN (Reason: Allergy Symptoms) 0RF Flovent HFA 110 mcg/actuation HFA aerosol inhaler 2 puff INHALATION BID PRN (Reason: REACTIVE AIRWAY DISEASE) 0RF oxycodone 5 mg tablet 5 mg PO BID PRN (Reason: Pain) 0RF azithromycin 500 mg tablet 500 mg PO .ON MON,WED, FRI 0RF Narcan 4 mg/actuation [place],Non-Aerosol 4 mg INTRANASAL Q2M PRN (Reason: OVERDOSE) 0RF Rx Instructions: spray 1 dose into ONE nostril; alternate nostrils w each dose until help arrives Discharge Orders: Transfer Out of Facility (Order); Ordered 09/27/21 Ordered By: Stef Kennedy Referrals: Scottie Herrera MD [Primary Care Provider] - Patient Instructions: Opioid Safety Transfer Attestations Time Spent in Transfer Care: greater than 30 min Quality Metrics Clinical Quality Measures [ No reported AMI, CVA or VTE this stay] Coding Level of Care Code Acute Insurance 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
[2021-09-28] MEDS: miconazole 2% vaginal cream 45 gm 1 APPFUL VAGINAL (18:07)
[2021-09-28] MEDS: valACYclovir 1,000 mg Tablet 500 MG PO (18:09)
[2021-09-28] MEDS: tacrolimus 0.5 mg Capsule PO (18:09)
[2021-09-28] MEDS: oxyCODONE 5 mg IR Tab/Cap PO (18:10)
[2021-09-28] MEDS: cetirizine 10 mg Tablet PO (18:11)
--- NOTE | 2021-09-28 18:15 | PC.NURSE ---
Patient refused to take Sennosides d/t having loose stools today as well as Vitamin B d/t not having availability and patient not taking it routinely at home. Medications administered by patient at bedside d/t lack of availability of transplant medications: Cellcept and Creon. Makayla De La O, RN Nurse Buggy Man witnessed administration at bedside.
[2021-09-28] MEDS: topiramate 25 mg Tablet 75 MG PO (18:19)
[2021-09-28] MEDS: acetaminophen 500 mg Tablet PO (20:41)
--- NOTE | 2021-09-28 21:23 | PC.NURSE ---
Discharge Patient discharged at this time to [facility] by EMS. Patient alert and oriented. All personal belongings taken with patient. EMS given paperwork and patient Primaxin antibiotic that is due at 2330.
== END 2021-09-28 21:25 | disposition short-term general hospital (02) | DRG 871 ==
LOC: ER 09-27 04:42 → MEDSURG 09-27 05:40
PROVIDERS: Admitting Provider Internal Medicine; Emergency Provider Emergency Medicine; PCP Family Medicine; Visit Provider Student in an Organized Health Care Education/Training Program
DX: A41.9 Sepsis, unspecified organism (principal); J18.9 Pneumonia, unspecified organism; E84.0 Cystic fibrosis with pulmonary manifestations; Z94.2 Lung transplant status; D84.821 Immunodeficiency due to drugs; E87.1 Hypo-osmolality and hyponatremia; N39.0 Urinary tract infection, site not specified; N17.9 Acute kidney failure, unspecified; N18.9 Chronic kidney disease, unspecified; Z87.442 Personal history of urinary calculi; Z86.14 Personal history of Methicillin resistant Staphylococcus aureus infection; Z79.899 Other long term (current) drug therapy; K59.00 Constipation, unspecified; E86.0 Dehydration; E87.6 Hypokalemia; E83.42 Hypomagnesemia; K52.9 Noninfective gastroenteritis and colitis, unspecified; Z79.51 Long term (current) use of inhaled steroids; Z79.52 Long term (current) use of systemic steroids; D69.6 Thrombocytopenia, unspecified
CPT/HCPCS: 36415; 71250; 74176; 80048; 80053; 80061; 81001; 81003; 81025; 82436; 83540; 83550; 83605; 83690; 83735; 83880; 84100; 84133; 84145; 84300; 84443; 85025; 86140; 86403; 87040; 87070; 87081; 87086; 87205; 87449; 87631; 87635; 87641; 87880; 93005; 94664; 96360; 96372; 99285; J0743; J1650; J2405; J3370; J3475; J7030; J7050; J7507; J7512; J7517; J7799

== ENCOUNTER 2021-10-10 10:02 | Outpatient (CLI) | payer MEDICAID, SELFPAY | END 2021-10-10 10:03 | disposition home or self-care (01) | PROVIDERS: PCP Family Medicine; Visit Provider Internal Medicine Pulmonary Disease | DX: A41.9 Sepsis, unspecified organism (principal) | CPT/HCPCS: 85025 ==

== ENCOUNTER 2022-08-29 18:35 | Emergency (ER) | payer MEDICAID, SELFPAY ==
[2022-08-29 18:40] VITALS: BP 160/101; PULSE 88; RESP 16; TEMP 36.5; O2SAT 98; BMI 22.1
[2022-08-29 20:38] VITALS: BP 144/85; PULSE 89; RESP 17; TEMP 37.2; O2SAT 97
[2022-08-29 20:39] LABS: Basophils % 0.2 %; Eosinophils % 0.1 %; Hematocrit 39.3 % (37.0-47.0); Hemoglobin 12.8 g/dL (11.5-15.3); Lymphocytes # 0.7 10^3/uL (0.8-4.8); Lymphocytes % 4.2 %; Mean Corpuscular HGB Conc 32.6 g/dL (30.0-36.0); Mean Corpuscular Volume 107.4 fl (81-99); Mean Platelet Volume 9.5 fL (7.4-10.4); Monocytes # 0.5 10^3/uL (0.2-0.9); Monocytes % 2.8 %; Neutrophils % 91.9 %; Nucleated Red Blood Cells % 0 %; Platelet Count 348 10^3/cmm (130-400); Red Blood Count 3.66 10^6/uL (4.1-5.3); Red Cell Distribution Width 14.3 % (12.1-15.1); White Blood Count 16.7 10^3/uL (4.0-10.0)
--- NOTE | 2022-08-29 21:13 | ECG_ITS ---
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 Measurements Intervals [place] Rate: 77 P: 54 [place]: 144 QRS: 4 QRSD: 93 T: 30 QT: 354 QTc: 401 Interpretive Statements SINUS RHYTHM Compared to ECG 09/26/2021 23:48:50 Sinus tachycardia no longer present T-wave abnormality no longer present Electronically Signed On 08-29-2022 22:41:20 CDT by Joe Trujillo M.D. [email or web address]
[2022-08-29 21:24] LABS: Alanine Aminotransferase 33 U/L (0-33); Albumin Level 3.7 g/dL (3.5-5.2); Alkaline Phosphatase 160 U/L (35-105); Anion Gap 17.7 (5-19); Aspartate Amino Transferase 38 U/L (0-32); Blood Urea Nitrogen 14 mg/dL (6-20); Calcium 8.4 mg/dL (8.5-10.5); Carbon Dioxide 18 mmol/L (22-29); Chloride 95 mmol/L (98-107); Globulin 2.8 g/dL (1.3-4.6); Glomerular Filtration Rate 38.1 mL/min (90-130); Glucose 146 mg/dL (65-115); Magnesium 1.6 mg/dL (1.7-2.3); Osmolality Calculated 265 mOsm/kg (285-295); Potassium 4.7 mmol/L (3.5-5.1); Sodium 126 mmol/L (136-145); Total Bilirubin 0.3 mg/dL (0.15-1.2); Total Protein 6.5 g/dL (6.6-8.7)
[2022-08-29 22:02] VITALS: BP 143/98; PULSE 82; RESP 16; O2SAT 97
--- NOTE | 2022-08-29 22:05 | W.ED.RECABL ---
HPI - Recheck/Abnormal Lab/Rx General: Chief Complaint: Recheck/Abnormal Lab/Rx Stated Complaint: Dr Sent\Light Headed\Confusion Time Seen by Provider: 08/29/22 21:56 Source: patient Mode of arrival: ambulatory Limitations: no limitations History of Present Illness: 42-year-old female has a history of cystic fibrosis she has had a lung transplant she states that she has felt nauseous since Saturday she has some chronic hyponatremia she went and saw her PCP who dandre blood and her sodium was 125 and had her sent here for some IV fluids states she had some slight weakness and fatigue she has had nausea denies any vomiting or diarrhea denies any pain anywhere Review of Systems Const: Reports: fatigue; Denies: fever(s) or chills Eyes: Denies: eye discomfort ENMT: Denies: throat pain or dental pain Card: Denies: chest pain Resp: Denies: dyspnea GI: Reports: nausea; Denies: abdominal pain, vomiting or diarrhea : Denies: dysuria Musc: Denies: neck pain or back pain Skin/Breast: Denies: rash Neuro: Denies: headache(s) Psych: Denies: depression PFSH ED PFSH: Medical History CKD (chronic kidney disease) Cystic fibrosis History of cystic fibrosis Hx of ehrlichiosis Lung transplant recipient MRSA infection Nephrolithiasis Surgical History History of hysterectomy History of tracheostomy S/P cholecystectomy Family History Mother Lupus Social History Smoking and tobacco status: never smoked Alcohol intake: never Substance/Drug Use: never Physical Exam Const: COMMON NORMALS: no acute distress, patient oriented x3 and healthy appearing HENMT: COMMON NORMALS: normocephalic and atraumatic HEAD & SCALP: normocephalic and atraumatic Eye: COMMON NORMALS: Equal, round and reactive pupils present and EOMs intact bilaterally PUPIL: Yes Equal, round and reactive pupils present Neck/C-Spine: COMMON NORMALS: full ROM and supple Chest: COMMONS NORMALS: normal inspection of the chest and normal palpation of entire chest wall Resp: COMMON NORMALS: normal respiratory effort, No retractions, No use of accessory muscles and clear to auscultation bilaterally AUSCULTATION: clear to auscultation bilaterally Cardio: COMMON NORMALS: regular rate, regular rhythm and No murmurs present (Cardio) RATE: regular rate RHYTHM: regular rhythm GI: COMMON NORMALS: Normal to inspection, nondistended, normoactive bowel sounds present, Soft to palpation, non-tender and no masses PALPATION: Yes Soft to palpation Extremity: COMMON NORMALS: normal to inspection and full ROM Neuro: COMMON NORMALS: patient oriented x3, moves all extremities and no focal motor deficits Psych: COMMON NORMALS: mental status grossly normal, Normal thought process present and cooperative THOUGHT PROCESS: Normal thought process present Skin: COMMON NORMALS: no rashes or lesions noted and no wounds GENERAL SKIN EXAM: no rashes or lesions noted Course Vital Signs: Vital signs: Vital Signs Temperature 98.9 F 08/29/22 20:38 Pulse Rate 102 H 08/30/22 00:01 Respiratory Rate 16 08/30/22 00:01 Blood Pressure 136/91 08/30/22 00:01 Pulse Oximetry 99 08/30/22 00:01 Oxygen Delivery Me thod Room Air 08/29/22 20:38 MDM - Recheck/Abnormal Lab/Rx Medical Decision Making Patient presents here with hyponatremia she does have a history of cystic fibrosis her sodium here is improved after liter bolus she has some chronic hyponatremia she does have a slight white count she had a mild cough x-ray shows a possible pneumonia she is in no respiratory distress here she feels much improved would like to go home we will start her on Augmentin she is to follow-up with PCP in 2 to 4 days and return if worsening she understands agrees to plan. Medical Records I reviewed the patient's medical records. Lab Data I reviewed the patient's lab results. 08/29/22 20:30 08/29/22 23:26 Radiology Impressions Chest X-Ray 08/29/22 22:51 IMPRESSION: 1. Patchy bilateral mid to lower lung field airspace infiltrates. 2. Mild pulmonary vascular congestion. 3. Emphysematous changes suspected. Laboratory Results WBC 16.7 10^3/uL (4.0-10.0) H 08/29/22 20:30 RBC 3.66 10^6/uL (4.1-5.3) L 08/29/22 20:30 Hgb 12.8 g/dL (11.5-15.3) 08/29/22 20:30 Hct 39.3 % (37.0-47.0) 08/29/22 20:30 MCV 107.4 fl (81-99) H 08/29/22 20:30 MCH 35.0 pg (28.0-34.0) H 08/29/22 20: MCHC 32.6 g/dL (30.0-36.0) 08/29/22 20: RDW 14.3 % (12.1-15.1) 08/29/22 20: Plt Count 348 10^3/cmm (130-400) 08/29/22 20: MPV 9.5 fL (7.4-10.4) 08/29/22 20:30 Neut % (Auto) 91.9 % 08/29/22 20:30 Lymph % (Auto) 4.2 % 08/29/22 20: [place] % (Auto) 2.8 % 08/29/22 20:30 Eos % (Auto) 0.1 % 08/29/22 20: Baso % (Auto) 0.2 % 08/29/22 20:30 Neut # (Auto) 15.30 10^3/uL (1.8-7.7) H 08/29/22 20:30 Lymph # (Auto) 0.7 10^3/uL (0.8-4.8) L 08/29/22 20:30 [place] # (Auto) 0.5 10^3/uL (0.2-0.9) 08/29/22 20:30 Eos # (Auto) 0.0 10^3/uL (0.0-0.8) 08/29/22 20: Baso # (Auto) 0.0 10^3/uL (0.0-0.1) 08/29/22 20:30 Nucleated RBC % (auto) 0 % 08/29/22 20:30 Nucleated RBCs # 0.0 /100WBC 08/29/22 20:30 Sodium 128 mmol/L (136-145) L 08/29/22 23: Potassium 4.3 mmol/L (3.5-5.1) 08/29/22 23:26 Chloride 98 mmol/L (98-107) 08/29/22 23:26 Carbon Dioxide 19 mmol/L (22-29) L 08/29/22 23:26 Anion Gap 15.3 (5-19) 08/29/22 23:26 BUN 15 mg/dL (6-20) 08/29/22 23:26 Creatinine 1.4 mg/dL (0.5-0.9) H 08/29/22 23:26 GFR Calculation 41.2 mL/min (90-130) L 08/29/22 23:26 Glucose 142 mg/dL (65-115) H 08/29/22 23:26 Calculated Osmolality 269 mOsm/kg (285-295) L 08/29/22 23:26 Calcium 7.8 mg/dL (8.5-10.5) L 08/29/22 23:26 Magnesium 1.6 mg/dL (1.7-2.3) L 08/29/22 20:30 Total Bilirubin 0.3 mg/dL (0.15-1.2) 08/29/22 20:30 AST 38 U/L (0-32) H 08/29/22 20:30 ALT 33 U/L (0-33) 08/29/22 20:30 Alkaline Phosphatase 160 U/L (35-105) H 08/29/22 20:30 NT-Pro-B Natriuret Pep 234 pg/mL (0-125) H 08/29/22 23:26 Total Protein 6.5 g/dL (6.6-8.7) L 08/29/22 20:30 Albumin 3.7 g/dL (3.5-5.2) 08/29/22 20:30 Globulin 2.8 g/dL (1.3-4.6) 08/29/22 20:30 Discharge Plan Discharge Patient Disposition: Home Clinical Impression: Hyponatremia, Pneumonia Condition: Stable Prescriptions: New Augmentin 500-125 mg tablet 1 tab PO BID Qty: 14 0RF No Action multivitamin [Multiple Vitamins] Tablet 1 tab PO DAILY@0700 cetirizine [Zyrtec] 10 mg Tablet 10 mg PO DAILY@1900 mycophenolate mofetil 250 mg Capsule 750 mg PO BID@0700,1900 prednisone 5 mg Tablet 5 mg PO DAILY@0700 valacyclovir 500 mg Tablet 500 mg PO DAILY@1900 sulfamethoxazole-trimethoprim [Bactrim DS] 800-160 mg Tablet 1 tab PO .ON SAT,SAT,SAT tramadol [Ultram] 50 mg Tablet 200 mg PO DAILY@07 pantoprazole [Protonix] 40 mg Tablet,Delayed Release (Dr/Ec) 40 mg PO DAILY@0700 tacrolimus 0.5 mg Capsule See Rx Instructions .ROUTE .COMPLEX Rx Instructions: 1mg po AT 0700 and 0.5mg po AT 1900 pregabalin [Lyrica] 200 mg Capsule 200 mg PO BID@0700,1900 Creon 24,000-76,000 -120,000 unit Capsule,Delayed Release(Dr/Ec) See Rx Instructions .ROUTE .COMPLEX Rx Instructions: 4 CAPS PO WITH EACH MEAL AND 1 CAP WITH THE TACROLIMUS DOSE AT 0700 vilazodone 20 mg Tablet 20 mg PO DAILY@0700 losartan 50 mg tablet 50 mg PO BEDTIME amlodipine 5 mg tablet 5 mg PO BEDTIME baclofen 10 mg tablet 10 mg PO QID PRN (Reason: Muscle Spasticity) ProAir HFA 90 mcg/actuation HFA aerosol inhaler 2 puff INHALATION QID PRN (Reason: Shortness Of Breath) Topamax 100 mg Tablet 25 - 50 mg PO BEDTIME fluticasone propionate 50 mcg/actuation spray,suspension 2 spray INTRANASAL DAILY PRN (Reason: Allergy Symptoms) Flovent HFA 110 mcg/actuation HFA aerosol inhaler 2 puff INHALATION BID PRN (Reason: REACTIVE AIRWAY DISEASE) oxycodone 5 mg tablet 5 mg PO BID PRN (Reason: Pain) azithromycin 500 mg tablet 500 mg PO .ON SAT,SAT, SAT Narcan 4 mg/actuation [place],Non-Aerosol 4 mg INTRANASAL Q2M PRN (Reason: OVERDOSE) Rx Instructions: spray 1 dose into ONE nostril; alternate nostrils w each dose until help arrives Discharge Orders: Discharge ED (Routine); Ordered 08/30/22 Ordered By: Mason Groves Referrals: Scottie Herrera MD [Primary Care Provider] - 1-3 days Discharge Diet: Advance as tolerated Discharge Activity: Resume usual activity Patient Instructions: Hyponatremia (ED), Pneumonia (ED) Coding Level of Care Code ED Wireless Sales Associate for Holag Mónica
[2022-08-29] MEDS: ondansetron 2 mg/ML SDV 2 mL 4 MG IVP (22:37)
[2022-08-29] MEDS: magnesium sulfate premix 2 GM/50 ML PIGGYBACK IV (22:37)
[2022-08-29] MEDS: sodium chloride 0.9% 1,000 ML 999 ML IV (22:38)
--- NOTE | 2022-08-29 22:51 | XRR_ITS ---
PROCEDURE INFORMATION: Exam: XR Chest Exam date and time: 08/29/2022 10:56 PM Age: 42 years old Clinical indication: Shortness of breath; Prior surgery; Surgery date: 6+ months; Surgery type: Lung transplant 26 years ago; Additional info: SOB TECHNIQUE: Imaging protocol: Radiologic exam of the chest. Views: 1 view. COMPARISON: CT chest abdpel [id number] 09/27/2021 1:08 AM FINDINGS: Lungs: Patchy bilateral mid to lower lung field airspace infiltrates. Mild pulmonary vascular congestion. Emphysematous changes suspected. Pleural spaces: Unremarkable. No pleural effusion. No pneumothorax. Heart/Mediastinum: Unremarkable. No cardiomegaly. Bones/joints: Unremarkable. XR/XR chest 1V portable [id number] IMPRESSION: 1. Patchy bilateral mid to lower lung field airspace infiltrates. 2. Mild pulmonary vascular congestion. 3. Emphysematous changes suspected.
[2022-08-29] MEDS: diphenhydrAMINE 50 mg/mL SDV 1mL IVP (22:53)
[2022-08-30 00:01] VITALS: BP 136/91; PULSE 102; RESP 16; O2SAT 99
[2022-08-30 00:04] LABS: Anion Gap 15.3 (5-19); Blood Urea Nitrogen 15 mg/dL (6-20); Calcium 7.8 mg/dL (8.5-10.5); Carbon Dioxide 19 mmol/L (22-29); Chloride 98 mmol/L (98-107); Glomerular Filtration Rate 41.2 mL/min (90-130); Glucose 142 mg/dL (65-115); NT Pro B Type Natriuretic Pept 234 pg/mL (0-125); Osmolality Calculated 269 mOsm/kg (285-295); Potassium 4.3 mmol/L (3.5-5.1); Sodium 128 mmol/L (136-145)
[2022-08-30 00:30] VITALS: BP 123/87; PULSE 91; RESP 16; O2SAT 98
== END 2022-08-30 00:44 | disposition home or self-care (01) ==
PROVIDERS: Emergency Provider Emergency Medicine; PCP Family Medicine
DX: J18.9 Pneumonia, unspecified organism (principal); E87.1 Hypo-osmolality and hyponatremia; Z94.2 Lung transplant status; E84.9 Cystic fibrosis, unspecified; N18.9 Chronic kidney disease, unspecified; Z86.14 Personal history of Methicillin resistant Staphylococcus aureus infection
CPT/HCPCS: 36415; 71045; 80048; 80053; 83735; 83880; 85025; 93005; 96365; 96375; 99285; J1200; J2405; J3475; J7030

== ENCOUNTER 2023-03-14 17:09 | Emergency (ER) | payer MEDICAID, SELFPAY ==
[2023-03-14 17:14] VITALS: BP 145/87; PULSE 91; RESP 20; TEMP 36.7; O2SAT 97
--- NOTE | 2023-03-14 17:35 | XRR_ITS ---
PROCEDURE INFORMATION: Exam: XR Chest Exam date and time: 03/14/2023 6:40 PM Age: 42 years old Clinical indication: Dyspnea; Additional info: Dyspnea, HX double lung translpant and several pneumothora TECHNIQUE: Imaging protocol: Radiologic exam of the chest. Views: 2 views. COMPARISON: CR (CHEST, ) 08/29/2022 10:56 PM FINDINGS: Lungs: No consolidation. Pleural spaces: No pleural effusion. No pneumothorax. Heart/Mediastinum: No cardiomegaly. Bones/joints: Unremarkable. XR/XR chest 2V* [id number] IMPRESSION: No acute findings.
--- NOTE | 2023-03-14 17:44 | W.ED.SOB ---
HPI - SOB/Dyspnea General: Chief Complaint: Upper Respiratory Infection Stated Complaint: coughing up blood, lung transplant pa Time Seen by Provider: 03/14/23 17:23 History of Present Illness: HPI Narrative: Patient presents to the ER with complaint of shortness of breath, wheezing and coughing up blood. She says this all started about 15 minutes prior to arrival. 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 Patient has had her lungs for approximately 27 years. Patient's transplant team is up at [place]. Patient also states she has had pneumothoraces in the past which included coughing up blood. Patient's breathing about 20 times per minute and is oxygenating approximately 97% on room air. Patient is in no acute distress at this time. Review of Systems General: Reports: 10 or more systems reviewed and unremarkable except in HPI and below PFSH ED PFSH: Medical History MRSA infection Nephrolithiasis Hx of ehrlichiosis History of cystic fibrosis Lung transplant recipient CKD (chronic kidney disease) Cystic fibrosis Surgical History History of tracheostomy History of hysterectomy S/P cholecystectomy Family History Mother Lupus Social History Smoking and tobacco/nicotine status: never used tobacco/nicotine Alcohol intake: never Substance/Drug Use: never Physical Exam Const: COMMON NORMALS: no acute distress, average body habitus, patient oriented x3, no limitations, healthy appearing, alert and well nourished HENMT: COMMON NORMALS: normocephalic, atraumatic, hearing grossly normal bilaterally, external ears normal, Normal external nose present, moist oral mucous membranes and oropharynx normal HEAD & SCALP: normocephalic and atraumatic NOSE: Normal external nose present EXTERNAL EAR: Yes external ears normal Neck/C-Spine: COMMON NORMALS: no JVD Chest: COMMONS NORMALS: normal inspection of the chest and normal palpation of entire chest wall Resp: COMMON NORMALS: normal respiratory effort, No retractions, No use of accessory muscles and clear to auscultation bilaterally (Possible minimal decrease in breath sounds in right lower lobe region) AUSCULTATION: clear to auscultation bilaterally (Possible minimal decrease in breath sounds in right lower lobe region) Cardio: COMMON NORMALS: no JVD, regular rate, regular rhythm, S1 normal heart sound present, S2 normal heart sound present, No gallops present (Cardio), No clicks present (Cardio), No murmurs present (Cardio) and No rub (Cardio) RATE: regular rate RHYTHM: regular rhythm HEART SOUNDS: S1 normal heart sound present and S2 normal heart sound present GI: COMMON NORMALS: Normal to inspection, nondistended, normoactive bowel sounds present, Soft to palpation, non-tender, No hepatosplenomegaly present and no masses PALPATION: Yes Soft to palpation and Yes No hepatosplenomegaly present Neuro: COMMON NORMALS: patient oriented x3 SENSORIUM/ORIENTATION: Yes alert Course Vital Signs: Vital signs: Vital Signs Temperature 98.0 F 03/14/23 17:14 Pulse Rate 98 03/14/23 18:54 Respiratory Rate 18 03/14/23 18:54 Blood Pressure 144/95 03/14/23 18:54 Pulse Oximetry 96 03/14/23 18:54 Oxygen Delivery Me thod Room Air 03/14/23 18:54 MDM - SOB/Dyspnea Medical Decision Making Patient presents to the ER with complaints of shortness of breath and hemoptysis. 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 Patient had lab work done which is stable for the patient. Patient had a chest x-ray two-view it was read by the radiologist as negative. Patient is feeling better and moving better air now patient states he is ready to go home because she needs to take her antirejection medicine. Patient be discharged home Differential Diagnosis Unlikely acute exacerbation of chronic obstructive airways disease, congestive heart failure, community acquired pneumonia, asthma with exacerbation or pulmonary embolism Medical Records I reviewed the patient's medical records. Lab Data I reviewed the patient's lab results. 03/14/23 17:53 03/14/23 17:53 Labs/Radiology: Radiology Impressions Chest X-Ray 03/14/23 17:35 IMPRESSION: No acute findings. Laboratory Results WBC 12.14 10^3/uL (3.29-11.43) H 03/14/23 17:53 RBC 4.15 10^6/uL (3.85-5.65) 03/14/23 17:53 Hgb 14.40 g/dL (11.27-16.99) 03/14/23 17:53 Hct 42.7 % (36-47) 03/14/23 17:53 MCV 102.9 fl (85-98) H 03/14/23 17:53 MCH 34.7 pg (27-33) H 03/14/23 17:53 MCHC 33.7 g/dL (30-55) 03/14/23 17:53 RDW 13.9 % (12.1-15.1) 03/14/23 17:53 Plt Count 363 10^3/cmm (157-399) 03/14/23 17:53 MPV 10.5 fL (7.4-10.4) H 03/14/23 17:53 Neut % (Auto) 84.8 % 03/14/23 17:53 Lymph % (Auto) 9.1 % 03/14/23 17:53 [place] % (Auto) 5.1 % 03/14/23 17:53 Eos % (Auto) 0.1 % 03/14/23 17:53 Baso % (Auto) 0.2 % 03/14/23 17:53 Neut # (Auto) 10.30 10^3/uL (1.8-7.7) H 03/14/23 17:53 Lymph # (Auto) 1.1 10^3/uL (0.8-4.8) 03/14/23 17:53 [place] # (Auto) 0.6 10^3/uL (0.2-0.9) 03/14/23 17:53 Eos # (Auto) 0.0 10^3/uL (0.0-0.8) 03/14/23 17:53 Baso # (Auto) 0.0 10^3/uL (0.0-0.1) 03/14/23 17:53 Nucleated RBC % (auto) 0 % 03/14/23 17:53 Nucleated RBCs # 0.0 /100WBC 03/14/23 17:53 PT 13.50 SECONDS (12.1-14.9) 03/14/23 17:53 INR 1.00 (0.8-1.2) 03/14/23 17:53 Sodium 137 mmol/L (136-145) 03/14/23 17:53 Potassium 3.9 mmol/L (3.5-5.1) 03/14/23 17:53 Chloride 102 mmol/L (98-107) 03/14/23 17:53 Carbon Dioxide 19 mmol/L (22-29) L 03/14/23 17:53 Anion Gap 19.9 (5-19) H 03/14/23 17:53 BUN 17 mg/dL (6-20) 03/14/23 17:53 Creatinine 1.4 mg/dL (0.5-0.9) H 03/14/23 17:53 GFR Calculation 41.2 mL/min (90-130) L 03/14/23 17:53 Glucose 151 mg/dL (65-115) H 03/14/23 17:53 Calculated Osmolality 288 mOsm/kg (285-295) 03/14/23 17:53 Calcium 9.1 mg/dL (8.5-10.5) 03/14/23 17:53 Total Bilirubin 0.3 mg/dL (0.15-1.2) 03/14/23 17:53 AST 37 U/L (0-32) H 03/14/23 17:53 ALT 37 U/L (0-33) H 03/14/23 17:53 Alkaline Phosphatase 191 U/L (35-105) H 03/14/23 17:53 Total Protein 7.3 g/dL (6.6-8.7) 03/14/23 17:53 Albumin 4.3 g/dL (3.5-5.2) 03/14/23 17:53 Globulin 3.0 g/dL (1.3-4.6) 03/14/23 17:53 All radiology interpretation(s) finalized by discharge Discharge Plan Discharge Patient Disposition: Home Clinical Impression: Hemoptysis, Acute dyspnea Condition: Stable Prescriptions: No Action multivitamin [Multiple Vitamins] Tablet 1 tab PO DAILY@0700 cetirizine [Zyrtec] 10 mg Tablet 10 mg PO DAILY@1900 mycophenolate mofetil 250 mg Capsule 750 mg PO BID@0700,1900 prednisone 5 mg Tablet 5 mg PO DAILY@0700 valacyclovir 500 mg Tablet 500 mg PO DAILY@1900 sulfamethoxazole-trimethoprim [Bactrim DS] 800-160 mg Tablet 1 tab PO .ON MON,WED,FRI tramadol [Ultram] 50 mg Tablet 200 mg PO DAILY@07 pantoprazole [Protonix] 40 mg Tablet,Delayed Release (Dr/Ec) 40 mg PO DAILY@0700 tacrolimus 0.5 mg Capsule See Rx Instructions .ROUTE .COMPLEX Rx Instructions: 1mg po AT 0700 and 0.5mg po AT 1900 pregabalin [Lyrica] 200 mg Capsule 200 mg PO BID@0700,1900 Creon 24,000-76,000 -120,000 unit Capsule,Delayed Release(Dr/Ec) See Rx Instructions .ROUTE .COMPLEX Rx Instructions: 4 CAPS PO WITH EACH MEAL AND 1 CAP WITH THE TACROLIMUS DOSE AT 0700 vilazodone 20 mg Tablet 20 mg PO DAILY@0700 losartan 50 mg tablet 50 mg PO BEDTIME amlodipine 5 mg tablet 5 mg PO BEDTIME baclofen 10 mg tablet 10 mg PO QID PRN (Reason: Muscle Spasticity) ProAir HFA 90 mcg/actuation HFA aerosol inhaler 2 puff INHALATION QID PRN (Reason: Shortness Of Breath) Topamax 100 mg Tablet 25 - 50 mg PO BEDTIME fluticasone propionate 50 mcg/actuation spray,suspension 2 spray INTRANASAL DAILY PRN (Reason: Allergy Symptoms) Flovent HFA 110 mcg/actuation HFA aerosol inhaler 2 puff INHALATION BID PRN (Reason: REACTIVE AIRWAY DISEASE) oxycodone 5 mg tablet 5 mg PO BID PRN (Reason: Pain) azithromycin 500 mg tablet 500 mg PO .ON SAT,SAT, FRI Narcan 4 mg/actuation [place],Non-Aerosol 4 mg INTRANASAL Q2M PRN (Reason: OVERDOSE) Rx Instructions: spray 1 dose into ONE nostril; alternate nostrils w each dose until help arrives Augmentin 500-125 mg tablet 1 tab PO BID Qty: 14 0RF Discharge Orders: Discharge ED (Routine); Ordered 03/14/23 Ordered By: Iain Avelar Referrals: Scottie Herrera MD [Primary Care Provider] - 1 week Patient Instructions: Coughing Up Blood (Hemoptysis) (ED), Dyspnea (ED) Activity Restrictions/Additional Instructions: Please follow-up with your family practice physician in the next 7 to 10 days for further evaluation and treatment as needed. If your symptoms return or worsen please feel free to return to the ER. Coding Level of Care Code ED Side Framer for [employer]
[2023-03-14 17:45] VITALS: BP 144/90; PULSE 82; RESP 18; O2SAT 96
[2023-03-14 17:55] VITALS: BP 144/90; PULSE 84; RESP 18; O2SAT 97
[2023-03-14 18:18] LABS: Basophils % 0.2 %; Eosinophils % 0.1 %; Hematocrit 42.7 % (36-47); Lymphocytes # 1.1 10^3/uL (0.8-4.8); Lymphocytes % 9.1 %; Mean Corpuscular HGB Conc 33.7 g/dL (30-55); Mean Corpuscular Hemoglobin 34.7 pg (27-33); Mean Corpuscular Volume 102.9 fl (85-98); Mean Platelet Volume 10.5 fL (7.4-10.4); Monocytes # 0.6 10^3/uL (0.2-0.9); Monocytes % 5.1 %; Neutrophils % 84.8 %; Nucleated Red Blood Cells % 0 %; Platelet Count 363 10^3/cmm (157-399); Red Blood Count 4.15 10^6/uL (3.85-5.65); Red Cell Distribution Width 13.9 % (12.1-15.1); White Blood Count 12.14 10^3/uL (3.29-11.43)
[2023-03-14 18:54] VITALS: BP 144/95; PULSE 98; RESP 18; O2SAT 96
--- NOTE | 2023-03-14 19:04 | PC.NURSE ---
this rn took over pt care at 1900 from KELBY Arceo
[2023-03-14 19:22] LABS: Alanine Aminotransferase 37 U/L (0-33); Albumin Level 4.3 g/dL (3.5-5.2); Alkaline Phosphatase 191 U/L (35-105); Anion Gap 19.9 (5-19); Aspartate Amino Transferase 37 U/L (0-32); Blood Urea Nitrogen 17 mg/dL (6-20); Calcium 9.1 mg/dL (8.5-10.5); Carbon Dioxide 19 mmol/L (22-29); Chloride 102 mmol/L (98-107); Creatinine Clr Calc Pharmacy 38.6089; Glomerular Filtration Rate 41.2 mL/min (90-130); Glucose 151 mg/dL (65-115); Osmolality Calculated 288 mOsm/kg (285-295); Potassium 3.9 mmol/L (3.5-5.1); Sodium 137 mmol/L (136-145); Total Bilirubin 0.3 mg/dL (0.15-1.2); Total Protein 7.3 g/dL (6.6-8.7)
[2023-03-14 20:58] VITALS: BP 156/97; PULSE 74; O2SAT 97
== END 2023-03-14 21:00 | disposition home or self-care (01) ==
PROVIDERS: Emergency Provider Emergency Medicine; PCP Family Medicine
DX: R06.00 Dyspnea, unspecified (principal); R04.2 Hemoptysis; Z94.2 Lung transplant status; N18.9 Chronic kidney disease, unspecified
CPT/HCPCS: 36415; 71046; 80053; 85025; 85610; 99284

== ENCOUNTER 2023-04-15 09:35 | Outpatient (CLI) | payer MEDICAID, SELFPAY ==
[2023-04-15 09:49] LABS: Basophils % 0.2 %; Eosinophils % 0.1 %; Hematocrit 40.9 % (36-47); Lymphocytes # 1.6 10^3/uL (0.8-4.8); Mean Corpuscular HGB Conc 33.7 g/dL (30-55); Mean Corpuscular Hemoglobin 33.7 pg (27-33); Mean Corpuscular Volume 99.8 fl (85-98); Mean Platelet Volume 10.2 fL (7.4-10.4); Monocytes # 0.9 10^3/uL (0.2-0.9); Monocytes % 6.5 %; Neutrophils # 10.44 10^3/uL (1.8-7.7); Neutrophils % 79.8 %; Nucleated Red Blood Cells % 0 %; Platelet Count 335 10^3/cmm (157-399); Red Cell Distribution Width 14.2 % (12.1-15.1); White Blood Count 13.07 10^3/uL (3.29-11.43)
[2023-04-15 10:09] LABS: Alanine Aminotransferase 75 U/L (0-33); Albumin Level 3.5 g/dL (3.5-5.2); Alkaline Phosphatase 170 U/L (35-105); Aspartate Amino Transferase 41 U/L (0-32); Blood Urea Nitrogen 23 mg/dL (6-20); Calcium 9.2 mg/dL (8.5-10.5); Carbon Dioxide 22 mmol/L (22-29); Chloride 97 mmol/L (98-107); Globulin 2.2 g/dL (1.3-4.6); Glomerular Filtration Rate 54.5 mL/min (90-130); Glucose 143 mg/dL (65-115); Osmolality Calculated 276 mOsm/kg (285-295); Sodium 130 mmol/L (136-145); Total Bilirubin 0.2 mg/dL (0.15-1.2); Total Protein 5.7 g/dL (6.6-8.7)
== END 2023-04-15 09:36 | disposition home or self-care (01) ==
PROVIDERS: PCP Family Medicine; Visit Provider Internal Medicine Pulmonary Disease
DX: Z01.89 Encounter for other specified special examinations (principal)
CPT/HCPCS: 80053; 80197; 85025

== ENCOUNTER 2023-06-11 11:23 | Emergency (ER) | payer MEDICAID, SELFPAY ==
[2023-06-11 11:33] VITALS: BP 140/86; PULSE 112; RESP 18; TEMP 36.7; O2SAT 93; BMI 20.9
--- NOTE | 2023-06-11 11:58 | ED_ITS ---
HPI - Recheck/Abnormal Lab/Rx 2 General: Chief Complaint: Recheck/Abnormal Lab/Rx Stated Complaint: n/v Time Seen by Provider: 06/11/23 11:41 Source: patient Mode of arrival: ambulatory Limitations: no limitations History of Present Illness: 43-year-old female with history of cysti c fibrosis she had a lung transplant roughly 26 years ago as well. States since Saturday she has had vomiting states she been having cramps in her hands and feet and is concerned that she is get hypokalemic she did start taking potassium pills yesterday but states she has not vomited most of the month. She denies any cough denies any shortness of breath denies any fever she denies any severe abdominal pain she had normal bowel movements. Review of Systems 2 Const: Denies: fever(s) or chills Eyes: Denies: eye discomfort ENMT: Denies: throat pain or dental pain Card: Denies: chest pain Resp: Denies: dyspnea GI: Reports: nausea and vomiting; Denies: diarrhea : Denies: dysuria Musc: Reports: muscle cramps; Denies: neck pain or back pain Skin/Breast: Denies: rash Neuro: Denies: headache(s) PFSH ED 2 PFSH: Medical History MRSA infection Nephrolithiasis Hx of ehrlichiosis History of cystic fibrosis Lung transplant recipient CKD (chronic kidney disease) Cystic fibrosis Surgical History History of tracheostomy History of hysterectomy S/P cholecystectomy Family History Mother Lupus Social History Smoking and tobacco/nicotine status: never used tobacco/nicotine Alcohol intake: never Substance/Drug Use: never Physical Exam 2 Const: COMMON NORMALS: no acute distress, patient oriented x3 and healthy appearing HENMT: COMMON NORMALS: normocephalic and atraumatic HEAD & SCALP: n ormocephalic and atraumatic Eye: COMMON NORMALS: Equal, round and reactive pupils present and EOMs intact bilaterally PUPIL: Yes Equal, round and reactive pupils present Neck/C-Spine: COMMON NORMALS: full ROM and supple Chest: COMMONS NORMALS: normal inspection of the chest and normal palpation of entire chest wall Resp: COMMON NORMALS: normal respiratory effort, No retractions, No use of accessory muscles and clear to auscultation bilaterally AUSCULTATION: clear to auscultation bilaterally Cardio: COMMON NORMALS: regular rate, regular rhythm and No murmurs present (Cardio) RATE: regular rate RHYTHM: regular rhythm GI: COMMON NORMALS: Normal to inspection, nondistended, normoactive bowel sounds present, Soft to palpation, non-tender and no masses PALPATION: Yes Soft to palpation Extremity: COMMON NORMALS: normal to inspection and full ROM Neuro: COMMON NORMALS: patient oriented x3, moves all extremities and no focal motor deficits Psych: COMMON NORMALS: mental status grossly normal, Normal thought process present and cooperative THOUGHT PROCESS: Normal thought process present Skin: COMMON NORMALS: no rashes or lesions noted and no wounds GENERAL SKIN EXAM: no rashes or lesions noted Course 2 Vital Signs: Vital signs: Vital Signs Temperature 98.1 F 06/11/23 11:33 Pulse Rate 93 06/11/23 12:36 Respiratory Rate 18 06/11/23 11:33 Blood Pressure 129/81 06/11/23 12:36 Pulse Oximetry 92 06/11/23 12:36 Oxygen Delivery Me thod Nasal Cannula 06/11/23 11:33 MDM - Recheck/Abnormal Lab/Rx Medical Decision Making Patient presents here with vomiting she feels much improved here after IV fluids and Zofran blood work here is normal potassium is normal she is stable for discharge she is follow-up with PCP and return if worsening she understands agrees to plan Medical Records I reviewed the patient's medical records. Lab Data I reviewed the patient's lab results. 06/11/23 12:12 06/11/23 12:12 Laboratory Results WBC 6.87 10^3/uL (3.29-11.43) 06/11/23 12:12 RBC 3.68 10^6/uL (3.85-5.65) L 06/11/23 12:12 Hgb 12.30 g/dL (11.27-16.99) 06/11/23 12:12 Hct 35.8 % (36-47) L 06/11/23 12:12 MCV 97.3 fl (85-98) 06/11/23 12:12 MCH 33.4 pg (27-33) H 06/11/23 12:12 MCHC 34.4 g/dL (30-55) 06/11/23 12:12 RDW 14.1 % (12.1-15.1) 06/11/23 12:12 Plt Count 334 10^3/cmm (157-399) 06/11/23 12:12 MPV 10.4 fL (7.4-10.4) 06/11/23 12:12 Neut % (Auto) 90.1 % 06/11/23 12:12 Lymph % (Auto) 7.1 % 06/11/23 12:12 [place] % (Auto) 2.2 % 06/11/23 12:12 Eos % (Auto) 0.0 % 06/11/23 12:12 Baso % (Auto) 0.3 % 06/11/23 12:12 Neut # (Auto) 6.19 10^3/uL (1.8-7.7) 06/11/23 12:12 Lymph # (Auto) 0.5 10^3/uL (0.8-4.8) L 06/11/23 12:12 [place] # (Auto) 0.2 10^3/uL (0.2-0.9) 06/11/23 12:12 Eos # (Auto) 0.0 10^3/uL (0.0-0.8) 06/11/23 12:12 Baso # (Auto) 0.0 10^3/uL (0.0-0.1) 06/11/23 12:12 Nucleated RBC % (auto) 0 % 06/11/23 12:12 Nucleated RBCs # 0.0 /100WBC 06/11/23 12:12 Sodium 133 mmol/L (136-145) L 06/11/23 12:12 Potassium 4.0 mmol/L (3.5-5.1) 06/11/23 12:12 Chloride 101 mmol/L (98-107) 06/11/23 12:12 Carbon Dioxide 19 mmol/L (22-29) L 06/11/23 12:12 Anion Gap 17.0 (5-19) 06/11/23 12:12 BUN 10 mg/dL (6-20) 06/11/23 12:12 Creatinine 1.2 mg/dL (0.5-0.9) H 06/11/23 12:12 GFR Calculation 49.0 mL/min (90-130) L 06/11/23 12:12 Glucose 139 mg/dL (65-115) H 06/11/23 12:12 Calculated Osmolality 277 mOsm/kg (285-295) L 06/11/23 12:12 Calcium 9.2 mg/dL (8.5-10.5) 06/11/23 12:12 Total Bilirubin 0.2 mg/dL (0.15-1.2) 06/11/23 12:12 AST 37 U/L (0-32) H 06/11/23 12:12 ALT 22 U/L (0-33) 06/11/23 12:12 Alkaline Phosphatase 158 U/L (35-105) H 06/11/23 12:12 Total Protein 6.2 g/dL (6.6-8.7) L 06/11/23 12:12 Albumin 3.5 g/dL (3.5-5.2) 06/11/23 12:12 Globulin 2.7 g/dL (1.3-4.6) 06/11/23 12:12 Lipase 4 U/L (13-60) L 06/11/23 12:12 Urine Color Yellow (Yellow) 06/11/23 12:19 Urine Appearance Sl hazy (CLEAR) A 06/11/23 12:19 Urine pH 5 (5-7) 06/11/23 12:19 Ur Specific [place] 1.015 (1.005-1.030) 06/11/23 12:19 Urine Protein Neg (Negative) 06/11/23 12:19 Urine Glucose (UA) Norm (Normal) 06/11/23 12:19 Urine Ketones Negative (Negative) 06/11/23 12:19 Urine Blood Neg (Negative) 06/11/23 12:19 Urine Nitrate Negative (Negative) 06/11/23 12:19 Urine Bilirubin Neg (Negative) 06/11/23 12:19 Urine Urobilinogen Norm mg/dL (Negative) 06/11/23 12:19 Ur Leukocyte Esterase 2+ (Negative) H 06/11/23 12:19 Urine RBC 0-4 /hpf (0-2) H 06/11/23 12:19 Urine WBC 15-25 /hpf (0-5) H 06/11/23 12:19 Ur Squamous Epith Cells 5-10 /hpf (0-5) H 06/11/23 12:19 Ur Transition Epith Cell 0-4 /hpf 06/11/23 12:19 Amorphous Sediment Not Reportable 06/11/23 12:19 Urine Bacteria Trace /hpf (NONE) 06/11/23 12:19 Hyaline Casts 0-4 /lpf H 06/11/23 12:19 Urine Mucus None /hpf 06/11/23 12:19 Urine Yeast 2+ /hpf H 06/11/23 12:19 Influenza Type A Ag negative (Negative) 06/11/23 12:37 Influenza Type B Ag negative (Negative) 06/11/23 12:37 SARS-CoV-2 Ag (Rapid) negative (Negative) 06/11/23 12:37 No radiology studies performed this visit Discharge Plan Discharge Patient Disposition: Home Clinical Impression: Vomiting Qualifiers: Vomiting type: unspecified Nausea presence: with nausea Qualified Code(s): R 11.2 - Nausea with vomiting, unspecified Condition: Stable Prescriptions: New ondansetron 4 mg tablet,disintegrating 4 mg PO Q6H PRN (Reason: nausea and vomiting) Qty: 14 0RF No Action multivitamin [Multiple Vitamins] Tablet 1 tab PO DAILY@0700 cetirizine [Zyrtec] 10 mg Tablet 10 mg PO DAILY@1900 mycophenolate mofetil 250 mg Capsule 750 mg PO BID@0700,1900 prednisone 5 mg Tablet 5 mg PO DAILY@0700 valacyclovir 500 mg Tablet 500 mg PO DAILY@1900 sulfamethoxazole-trimethoprim [Bactrim DS] 800-160 mg Tablet 1 tab PO .ON MON,WED,FRI tramadol [Ultram] 50 mg Tablet 200 mg PO DAILY@07 pantoprazole [Protonix] 40 mg Tablet,Delayed Release (Dr/Ec) 40 mg PO DAILY@0700 tacrolimus 0.5 mg Capsule See Rx Instructions .ROUTE .COMPLEX Rx Instructions: 1mg po AT 0700 and 0.5mg po AT 1900 pregabalin [Lyrica] 200 mg Capsule 200 mg PO BID@0700,1900 Creon 24,000-76,000 -120,000 unit Capsule,Delayed Release(Dr/Ec) See Rx Instructions .ROUTE .COMPLEX Rx Instructions: 4 CAPS PO WITH EACH MEAL AND 1 CAP WITH THE TACROLIMUS DOSE AT 0700 vilazodone 20 mg Tablet 20 mg PO DAILY@0700 losartan 50 mg tablet 50 mg PO BEDTIME amlodipine 5 mg tablet 5 mg PO BEDTIME baclofen 10 mg tablet 10 mg PO QID PRN (Reason: Muscle Spasticity) ProAir HFA 90 mcg/actuation HFA aerosol inhaler 2 puff INHALATION QID PRN (Reason: Shortness Of Breath) Topamax 100 mg Tablet 25 - 50 mg PO BEDTIME fluticasone propionate 50 mcg/actuation spray,suspension 2 spray INTRANASAL DAILY PRN (Reason: Allergy Symptoms) Flovent HFA 110 mcg/actuation HFA aerosol inhaler 2 puff INHALATION BID PRN (Reason: REACTIVE AIRWAY DISEASE) oxycodone 5 mg tablet 5 mg PO BID PRN (Reason: Pain) azithromycin 500 mg tablet 500 mg PO .ON MON,WED, FRI Narcan 4 mg/actuation [place],Non-Aerosol 4 mg INTRANASAL Q2M PRN (Reason: OVERDOSE) Rx Instructions: spray 1 dose into ONE nostril; alternate nostrils w each dose until help arrives Augmentin 500-125 mg tablet 1 tab PO BID Qty: 14 0RF Discharge Orders: Discharge ED (Routine); Ordered 06/11/23 Ordered By: Msaon Groves Referrals: Scottie Herrera MD [Primary Care Provider] - 4-7 days Discharge Diet: Advance as tolerated Discharge Activity: Resume usual activity Patient Instructions: Acute Nausea and Vomiting (ED) 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
[2023-06-11 12:19] LABS: Basophils % 0.3 %; Hematocrit 35.8 % (36-47); Lymphocytes # 0.5 10^3/uL (0.8-4.8); Lymphocytes % 7.1 %; Mean Corpuscular HGB Conc 34.4 g/dL (30-55); Mean Corpuscular Hemoglobin 33.4 pg (27-33); Mean Corpuscular Volume 97.3 fl (85-98); Mean Platelet Volume 10.4 fL (7.4-10.4); Monocytes # 0.2 10^3/uL (0.2-0.9); Monocytes % 2.2 %; Neutrophils # 6.19 10^3/uL (1.8-7.7); Neutrophils % 90.1 %; Nucleated Red Blood Cells % 0 %; Platelet Count 334 10^3/cmm (157-399); Red Blood Count 3.68 10^6/uL (3.85-5.65); Red Cell Distribution Width 14.1 % (12.1-15.1); White Blood Count 6.87 10^3/uL (3.29-11.43)
[2023-06-11] MEDS: sodium chloride 0.9% 1,000 ML 999 ML IV (12:31)
[2023-06-11] MEDS: ondansetron 2 mg/ML SDV 2 mL 4 MG IVP (12:33)
[2023-06-11 12:36] VITALS: BP 129/81; PULSE 93; O2SAT 92
[2023-06-11 12:38] LABS: Alanine Aminotransferase 22 U/L (0-33); Albumin Level 3.5 g/dL (3.5-5.2); Alkaline Phosphatase 158 U/L (35-105); Aspartate Amino Transferase 37 U/L (0-32); Blood Urea Nitrogen 10 mg/dL (6-20); Calcium 9.2 mg/dL (8.5-10.5); Carbon Dioxide 19 mmol/L (22-29); Chloride 101 mmol/L (98-107); Creatinine Clr Calc Pharmacy 43.2853; Globulin 2.7 g/dL (1.3-4.6); Glucose 139 mg/dL (65-115); Lipase 4 U/L (13-60); Osmolality Calculated 277 mOsm/kg (285-295); Sodium 133 mmol/L (136-145); Total Bilirubin 0.2 mg/dL (0.15-1.2); Total Protein 6.2 g/dL (6.6-8.7)
[2023-06-11 12:39] LABS: Urine Appearance SL Hazy (CLEAR); Urine Color Yellow (Yellow); pH Urine 5 (5-7)
[2023-06-11 12:40] LABS: Add Urine Microscopic? YES; Bilirubin Urine Neg (Negative); Blood Urine Neg (Negative); Glucose Urine UA Norm (Normal); Ketones Urine Negative (Negative); Leukocyte Esterase Urine 2+ (Negative); Nitrate Urine Negative (Negative); Protein Urine Neg (Negative); Specific Gravity, Urine 1.015 (1.005-1.030); Urobilinogen Urine Norm (Negative)
[2023-06-11 12:44] LABS: RBC Urine 0-4 /hpf (0-2); Transitional Epi Cells Urine 0-4 /hpf; WBC Urine 15-25 /hpf (0-5)
[2023-06-11 12:45] LABS: Add Urine Culture? Yes; Bacteria Urine TRACE /hpf; Hyaline Casts Urine 0-4 /lpf
[2023-06-11 12:58] LABS: Influenza A by IFA negative (Negative); Influenza B by IFA negative (Negative); SARS Covid-2 Antigen negative (Negative)
[2023-06-11 13:41] VITALS: BP 119/76; PULSE 81; O2SAT 95
== END 2023-06-11 13:42 | disposition home or self-care (01) ==
PROVIDERS: Emergency Provider Emergency Medicine; PCP Family Medicine
DX: R11.2 Nausea with vomiting, unspecified (principal); Z11.52 Encounter for screening for COVID-19; Z94.2 Lung transplant status; N18.9 Chronic kidney disease, unspecified; E84.9 Cystic fibrosis, unspecified
CPT/HCPCS: 80053; 81001; 83690; 85025; 87086; 87426; 87804; 96374; 99284; J2405; J7030

== ENCOUNTER 2023-06-27 12:04 | Emergency (ER) | payer MEDICAID, SELFPAY ==
--- NOTE | 2023-06-27 12:05 | XRR_ITS ---
PROCEDURE INFORMATION: Exam: XR Chest Exam date and time: 06/27/2023 12:20 PM Age: 43 years old Clinical indication: Shortness of breath; Additional info: SOB TECHNIQUE: Imaging protocol: Radiologic exam of the chest. Views: 1 view. COMPARISON: CR (CHEST, ) 03/14/2023 6:40 PM FINDINGS: Lungs: Mild biapical fibrosis. Mild diffuse interstitial prominence. No acute cardiopulmonary disease. Pleural spaces: Unremarkable. No pleural effusion. No pneumothorax. Heart/Mediastinum: Unremarkable. No cardiomegaly. Bones/joints: Unremarkable. XR/XR chest 1V portable [id number] IMPRESSION: No significant change.
[2023-06-27 12:13] VITALS: BP 124/78; PULSE 103; RESP 18; TEMP 36.9; O2SAT 95; BMI 20.9
--- NOTE | 2023-06-27 12:47 | ED_ITS ---
HPI - URI/Sore Throat 2 General: Chief Complaint: Upper Respiratory Infection Stated Complaint: sob Time Seen by Provider: 06/27/23 12:37 Source: patient Mode of arrival: ambulatory Limitations: no limitations History of Present Illness: 43-year-old female has a history of cyst ic fibrosis had a lung transplant many years ago. States over the last 3 days she has had some mild dyspnea along with slight cough. She denies any fever she states she saw her PCP yesterday is prescribed steroids had the flu and COVID swabs were negative but states she went to get rechecked. She denies any pain or fever she is in no distress here pulse ox is 97% on room air Associated symptoms: Deny abdominal pain, chills, chest pain, diarrhea, fever(s), headache(s), nausea or vomiting Review of Systems 2 Const: Denies: fever(s), chills, body aches or change in appetite ENMT: Denies: throat pain or dental pain Card: Denies: chest pain Resp: Reports: dyspnea and non-productive cough GI: Denies: abdominal pain, nausea, vomiting or diarrhea Musc: Denies: neck pain or back pain Skin/Breast: Denies: rash Neuro: Denies: headache(s) PFSH ED 2 PFSH: Medical History MRSA infection Nephrolithiasis Hx of ehrlichiosis History of cystic fibrosis Lung transplant recipient CKD (chronic kidney disease) Cystic fibrosis Surgical History History of tracheostomy History of hysterectomy S/P cholecystectomy Family History Mother Lupus Social History Smoking and tobacco/nicotine status: never used tobacco/nicotine Alcohol intake: never Substance/Drug Use: never Physical Exam 2 Const: COMMON NORMALS: no acute distress, patient oriented x3 and healthy appearing HENMT: COMMON NORMALS: normocephalic and atraumatic HEAD & SCALP: n ormocephalic and atraumatic Neck/C-Spine: COMMON NORMALS: full ROM and supple Chest: COMMONS NORMALS: normal inspection of the chest Resp: COMMON NORMALS: normal respiratory effort, No retractions, No use of accessory muscles and clear to auscultation bilaterally AUSCULTATION: clear to auscultation bilaterally Cardio: COMMON NORMALS: regular rate, regular rhythm and No murmurs present (Cardio) RATE: regular rate RHYTHM: regular rhythm Extremity: COMMON NORMALS: normal to inspection and full ROM Neuro: COMMON NORMALS: patient oriented x3, moves all extremities and no focal motor deficits Psych: COMMON NORMALS: mental status grossly normal, Normal thought process present and cooperative THOUGHT PROCESS: Normal thought process present Skin: COMMON NORMALS: no rashes or lesions noted and no wounds GENERAL SKIN EXAM: no rashes or lesions noted Course 2 Vital Signs: Vital signs: Vital Signs Temperature 98.5 F 06/27/23 12:13 Pulse Rate 91 06/27/23 14:00 Respiratory Rate 17 06/27/23 13:52 Blood Pressure 124/78 06/27/23 12:13 Pulse Oximetry 98 06/27/23 13:52 Oxygen Delivery Me thod Room Air 06/27/23 13:52 MDM - URI/Sore Throat Medical Decision Making Patient presents here with likely upper respiratory infection she feels much improved after steroids and breathing treatment x-ray shows no signs of pneumonia she is in no respiratory distress pulse ox is normal did give her Decadron here she is to call and 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 Lab Data I reviewed the patient's lab results. 06/27/23 13:06 06/27/23 13:06 Radiology Impressions Chest X-Ray 06/27/23 12:05 IMPRESSION: No significant change. Laboratory Results WBC 15.84 10^3/uL (3.29-11.43) H 06/27/23 13:06 RBC 3.56 10^6/uL (3.85-5.65) L 06/27/23 13:06 Hgb 11.90 g/dL (11.27-16.99) 06/27/23 13:06 Hct 35.8 % (36-47) L 06/27/23 13:06 MCV 100.6 fl (85-98) H 06/27/23 13:06 MCH 33.4 pg (27-33) H 06/27/23 13:06 MCHC 33.2 g/dL (30-55) 06/27/23 13:06 RDW 14.3 % (12.1-15.1) 06/27/23 13:06 Plt Count 272 10^3/cmm (157-399) 06/27/23 13:06 MPV 11.2 fL (7.4-10.4) H 06/27/23 13:06 Neut % (Auto) 96.4 % 06/27/23 13:06 Lymph % (Auto) 0.8 % 06/27/23 13:06 [place] % (Auto) 2.0 % 06/27/23 13:06 Eos % (Auto) 0.0 % 06/27/23 13:06 Baso % (Auto) 0.1 % 06/27/23 13:06 Neut # (Auto) 15.29 10^3/uL (1.8-7.7) H 06/27/23 13:06 Lymph # (Auto) 0.1 10^3/uL (0.8-4.8) L 06/27/23 13:06 [place] # (Auto) 0.3 10^3/uL (0.2-0.9) 06/27/23 13:06 Eos # (Auto) 0.0 10^3/uL (0.0-0.8) 06/27/23 13:06 Baso # (Auto) 0.0 10^3/uL (0.0-0.1) 06/27/23 13:06 Nucleated RBC % (auto) 0 % 06/27/23 13:06 Nucleated RBCs # 0.0 /100WBC 06/27/23 13:06 Sodium 136 mmol/L (136-145) 06/27/23 13:06 Potassium 3.6 mmol/L (3.5-5.1) 06/27/23 13:06 Chloride 103 mmol/L (98-107) 06/27/23 13:06 Carbon Dioxide 20 mmol/L (22-29) L 06/27/23 13:06 Anion Gap 16.6 (5-19) 06/27/23 13:06 BUN 14 mg/dL (6-20) 06/27/23 13:06 Creatinine 1.2 mg/dL (0.5-0.9) H 06/27/23 13:06 GFR Calculation 49.0 mL/min (90-130) L 06/27/23 13:06 Glucose 215 mg/dL (65-115) H 06/27/23 13:06 Calculated Osmolality 289 mOsm/kg (285-295) 06/27/23 13:06 Calcium 8.8 mg/dL (8.5-10.5) 06/27/23 13:06 Total Bilirubin 0.2 mg/dL (0.15-1.2) 06/27/23 13:06 AST 30 U/L (0-32) 06/27/23 13:06 ALT 29 U/L (0-33) 06/27/23 13:06 Alkaline Phosphatase 160 U/L (35-105) H 06/27/23 13:06 NT-Pro-B Natriuret Pep 614 pg/mL (0-125) H 06/27/23 13:06 Total Protein 6.1 g/dL (6.6-8.7) L 06/27/23 13:06 Albumin 3.6 g/dL (3.5-5.2) 06/27/23 13:06 Globulin 2.5 g/dL (1.3-4.6) 06/27/23 13:06 Influenza Type A Ag negative (Negative) 06/27/23 12:58 Influenza Type B Ag negative (Negative) 06/27/23 12:58 SARS-CoV-2 Ag (Rapid) negative (Negative) 06/27/23 12:58 All radiology interpretation(s) finalized by discharge Discharge Plan Discharge Patient Disposition: Home Clinical Impression: Upper respiratory infection Condition: Stable Prescriptions: No Action multivitamin [Multiple Vitamins] Tablet 1 tab PO DAILY@0700 cetirizine [Zyrtec] 10 mg Tablet 10 mg PO BID prednisone 5 mg Tablet 5 mg PO DAILY@0700 valacyclovir 500 mg Tablet 500 mg PO BID Rx Instructions: ON HOLD PER PT OF 06/27/23 sulfamethoxazole-trimethoprim [Bactrim DS] 800-160 mg Tablet 1 tab PO .ON MON,WED,FRI pantoprazole [Protonix] 40 mg Tablet,Delayed Release (Dr/Ec) 40 mg PO DAILY@0700 pregabalin [Lyrica] 200 mg Capsule 200 mg PO BID@0700,1900 fluticasone propionate 50 mcg/actuation spray,suspension 1 spray INTRANASAL BID fluticasone propionate [Flovent HFA] 110 mcg/actuation HFA aerosol inhaler 2 puff INHALATION BID PRN (Reason: REACTIVE AIRWAY DISEASE) oxycodone 5 mg tablet 5 mg PO BID PRN (Reason: Pain) azithromycin 500 mg tablet 500 mg PO .ON MON,WED, FRI naloxone [Narcan] 4 mg/actuation [place],Non-Aerosol 4 mg INTRANASAL Q2M PRN (Reason: OVERDOSE) Rx Instructions: spray 1 dose into ONE nostril; alternate nostrils w each dose until help arrives ondansetron 4 mg tablet,disintegrating 4 mg PO Q6H PRN (Reason: nausea and vomiting) Qty: 14 0RF valganciclovir 450 mg tablet 450 mg PO BID mycophenolate mofetil 250 mg capsule 250 mg PO BID Rx Instructions: TAKE WITH 500MG BID tramadol 50 mg tablet 200 mg PO DAILY@07 mycophenolate mofetil 500 mg tablet 500 mg PO BID Rx Instructions: TAKE WITH 250MG BID fluvoxamine 100 mg tablet 100 mg PO BID losartan 100 mg tablet 100 mg PO DAILY@07 tacrolimus 0.5 mg capsule See Rx Instructions .ROUTE .COMPLEX Rx Instructions: TAKE 2 CAPSULES BY MOUTH EVERY MORNING AND 1 CAPSULE AT BEDTIME sodium chloride 1,000 mg tablet,soluble 1,000 mg PO BID [place] 24,000-76,000 -120,000 unit capsule,delayed release(DR/EC) See Rx Instructions .ROUTE .COMPLEX Rx Instructions: TAKE 4 CAPSULES BY MOUTH 3 TIMES DAILY WITH MEALS AND ONE CAP WITH TACROLIMUS DOSE AND ONE CAP WITH A SNACK Discharge Orders: Discharge ED (Routine); Ordered 06/27/23 Ordered By: Mason Groves Referrals: Scottie Herrera MD [Primary Care Provider] - Discharge Diet: Advance as tolerated Discharge Activity: Resume usual activity Patient Instructions: Upper Respiratory Infection (ED) 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
[2023-06-27 13:18] LABS: Influenza A by IFA negative (Negative); Influenza B by IFA negative (Negative)
[2023-06-27 13:20] LABS: SARS Covid-2 Antigen negative (Negative)
[2023-06-27 13:25] LABS: Basophils % 0.1 %; Hematocrit 35.8 % (36-47); Lymphocytes # 0.1 10^3/uL (0.8-4.8); Lymphocytes % 0.8 %; Mean Corpuscular HGB Conc 33.2 g/dL (30-55); Mean Corpuscular Hemoglobin 33.4 pg (27-33); Mean Corpuscular Volume 100.6 fl (85-98); Mean Platelet Volume 11.2 fL (7.4-10.4); Monocytes # 0.3 10^3/uL (0.2-0.9); Neutrophils # 15.29 10^3/uL (1.8-7.7); Neutrophils % 96.4 %; Nucleated Red Blood Cells % 0 %; Platelet Count 272 10^3/cmm (157-399); Red Blood Count 3.56 10^6/uL (3.85-5.65); Red Cell Distribution Width 14.3 % (12.1-15.1); White Blood Count 15.84 10^3/uL (3.29-11.43)
[2023-06-27] MEDS: dexamethasone 10 mg/mL INJ IVP (13:26)
[2023-06-27 13:45] LABS: Alanine Aminotransferase 29 U/L (0-33); Albumin Level 3.6 g/dL (3.5-5.2); Alkaline Phosphatase 160 U/L (35-105); Aspartate Amino Transferase 30 U/L (0-32); Blood Urea Nitrogen 14 mg/dL (6-20); Calcium 8.8 mg/dL (8.5-10.5); Carbon Dioxide 20 mmol/L (22-29); Chloride 103 mmol/L (98-107); Creatinine Clr Calc Pharmacy 43.2853; Globulin 2.5 g/dL (1.3-4.6); Glucose 215 mg/dL (65-115); NT Pro B Type Natriuretic Pept 614 pg/mL (0-125); Osmolality Calculated 289 mOsm/kg (285-295); Sodium 136 mmol/L (136-145); Total Bilirubin 0.2 mg/dL (0.15-1.2); Total Protein 6.1 g/dL (6.6-8.7)
[2023-06-27 13:51] LABS: Anion Gap 16.6 (5-19); Potassium 3.6 mmol/L (3.5-5.1)
[2023-06-27 13:52] VITALS: PULSE 91; RESP 17; O2SAT 98
[2023-06-27] MEDS: ipratropium-albuterol 3 mL Neb INHALATION (13:52)
[2023-06-27 14:00] VITALS: PULSE 91
[2023-06-27 14:33] VITALS: PULSE 91; O2SAT 98
== END 2023-06-27 14:36 | disposition home or self-care (01) ==
PROVIDERS: Emergency Provider Emergency Medicine; PCP Family Medicine
DX: J06.9 Acute upper respiratory infection, unspecified (principal); Z11.52 Encounter for screening for COVID-19; N18.9 Chronic kidney disease, unspecified; E84.9 Cystic fibrosis, unspecified; Z94.2 Lung transplant status
CPT/HCPCS: 71045; 80053; 83880; 85025; 87426; 87804; 94640; 96374; 99284; J1100

== ENCOUNTER 2023-07-11 08:30 | Outpatient (CLI) | payer MEDICAID, SELFPAY ==
[2023-07-11 08:59] LABS: Basophils % 0.2 %; Eosinophils % 0.1 %; Hematocrit 36.9 % (36-47); Lymphocytes # 2.1 10^3/uL (0.8-4.8); Mean Corpuscular HGB Conc 34.1 g/dL (30-55); Mean Corpuscular Hemoglobin 33.2 pg (27-33); Mean Corpuscular Volume 97.1 fl (85-98); Mean Platelet Volume 10.2 fL (7.4-10.4); Monocytes # 1.1 10^3/uL (0.2-0.9); Monocytes % 5.7 %; Neutrophils # 15.38 10^3/uL (1.8-7.7); Neutrophils % 79.7 %; Nucleated Red Blood Cells % 0.1 %; Platelet Count 371 10^3/cmm (157-399); Red Cell Distribution Width 14.1 % (12.1-15.1)
[2023-07-11 09:21] LABS: Alanine Aminotransferase 44 U/L (0-33); Albumin Level 3.6 g/dL (3.5-5.2); Alkaline Phosphatase 142 U/L (35-105); Anion Gap 15.2 (5-19); Aspartate Amino Transferase 22 U/L (0-32); Blood Urea Nitrogen 39 mg/dL (6-20); Calcium 9.3 mg/dL (8.5-10.5); Carbon Dioxide 19 mmol/L (22-29); Chloride 104 mmol/L (98-107); Globulin 2.3 g/dL (1.3-4.6); Glomerular Filtration Rate 37.9 mL/min (90-130); Glucose 120 mg/dL (65-115); Osmolality Calculated 289 mOsm/kg (285-295); Potassium 4.2 mmol/L (3.5-5.1); Sodium 134 mmol/L (136-145); Total Bilirubin 0.2 mg/dL (0.15-1.2); Total Protein 5.9 g/dL (6.6-8.7)
== END 2023-07-11 08:31 | disposition home or self-care (01) ==
PROVIDERS: PCP Family Medicine; Visit Provider Internal Medicine
DX: Z51.81 Encounter for therapeutic drug level monitoring (principal); Z79.899 Other long term (current) drug therapy; B97.4 Respiratory syncytial virus as the cause of diseases classified elsewhere; M87.00 Idiopathic aseptic necrosis of unspecified bone; J18.9 Pneumonia, unspecified organism
CPT/HCPCS: 80053; 80197; 85025

== ENCOUNTER 2023-11-13 12:37 | Emergency (ER) | payer MEDICAID, SELFPAY ==
--- NOTE | 2023-11-13 12:41 | XR_ITS ---
WS: [id number] Portable AP upright chest, 11/13/2023 Clinical Data: cp Comparison: Portable chest, 06/27/2023 Findings: No nodules, masses or effusions are seen. Bilateral apical pleural scarring and volume loss is seen. The diaphragms are flattened. There are transverse sutures probably in the mid sternum. The heart is normal. The pulmonary vascularity is not increased. No pneumonia or pneumothorax is seen. 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 XR/XR chest 1V portable [id number] Impression: 1. Chronic apical pleural scarring. 2. Hyperinflation. 3. Negative for acute cardiopulmonary disease.
--- NOTE | 2023-11-13 12:45 | ECG_ITS ---
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 Measurements Intervals [place] Rate: 72 P: 62 W[place]: 148 QRS: -12 QRSD: 97 T: 43 QT: 369 QTc: 406 Interpretive Statements SINUS RHYTHM Compared to ECG 04/09/2020 15:53:55 No significant changes Electronically Signed On 11-13-2023 17:13:33 CDT by Joe Trujillo M.D. [id number]
[2023-11-13 12:48] VITALS: BP 164/107; PULSE 75; RESP 16; TEMP 36.7; O2SAT 98
--- NOTE | 2023-11-13 12:55 | ED_ITS ---
HPI - Chest Pain 2 General: Chief Complaint: Chest Pain Stated Complaint: Dr. Herrera sent--chest pains, sodium low Time Seen by Provider: 11/13/23 12:41 Source: patient Mode of arrival: ambulatory Limitations: no limitations History of Present Illness: 43-year-old female with a history of cys tic fibrosis has had a lung transplant states she been having chest pain since this morning states been a sharp pain in the center of her chest she denies any shortness of breath denies any cough states she is also had low sodiums over the last week she denies any vomiting or diarrhea. Associated symptoms: Deny abdominal pain, dyspnea, fever(s), nausea or vomiting Review of Systems 2 Const: Denies: fever(s), chills, body aches or change in appetite ENMT: Denies: throat pain or dental pain Card: Reports: chest pain Resp: Denies: dyspnea GI: Denies: abdominal pain, nausea, vomiting or diarrhea : Denies: dysuria Musc: Denies: neck pain or back pain Skin/Breast: Denies: rash Neuro: Denies: headache(s) Psych: Denies: depression Leonardo/Lymph: Denies: easy bruising All/Imm: Denies: urticaria PFSH ED 2 PFSH: Medical History MRSA infection Nephrolithiasis Hx of ehrlichiosis History of cystic fibrosis Lung transplant recipient CKD (chronic kidney disease) Cystic fibrosis Surgical History History of tracheostomy History of hysterectomy S/P cholecystectomy Family History Mother Lupus Social History Smoking and tobacco/nicotine status: never used tobacco/nicotine Alcohol intake: never Substance/Drug Use: never Physical Exam 2 Const: COMMON NORMALS: no acute distress, patient oriented x3 and healthy appearing HENMT: COMMON NORMALS: normocephalic and atraumatic HEAD & SCALP: n ormocephalic and atraumatic Eye: COMMON NORMALS: conjunctivae normal CONJUNCTIVA: Yes conjunctivae normal Neck/C-Spine: COMMON NORMALS: full ROM and supple Chest: COMMONS NORMALS: normal inspection of the chest and normal palpation of entire chest wall Resp: COMMON NORMALS: normal respiratory effort, No retractions, No use of accessory muscles and clear to auscultation bilaterally AUSCULTATION: clear to auscultation bilaterally Cardio: COMMON NORMALS: regular rate, regular rhythm and No murmurs present (Cardio) RATE: regular rate RHYTHM: regular rhythm GI: COMMON NORMALS: Normal to inspection, nondistended, normoactive bowel sounds present, Soft to palpation, non-tender and no masses PALPATION: Yes Soft to palpation Extremity: COMMON NORMALS: normal to inspection and full ROM Neuro: COMMON NORMALS: patient oriented x3, moves all extremities and no focal motor deficits Psych: COMMON NORMALS: mental status grossly normal, Normal thought process present and cooperative THOUGHT PROCESS: Normal thought process present Skin: COMMON NORMALS: no rashes or lesions noted and no wounds GENERAL SKIN EXAM: no rashes or lesions noted Course 2 Vital Signs: Vital signs: Vital Signs Temperature 98.0 F 11/13/23 12:48 Pulse Rate 92 11/13/23 16:21 Respiratory Rate 16 11/13/23 12:48 Blood Pressure 123/84 11/13/23 16:21 Pulse Oximetry 96 11/13/23 16:21 Oxygen Delivery Me thod Room Air 11/13/23 16:21 MDM - Chest Pain Medical Decision Making Patient presents here with chest pain atypical in nature her troponins here are negative she is concerned that she had some hyponatremia but sodium level here is normal she stable for discharge follow-up with PCP and return if worsening she understands agrees to plan. Medical Records I reviewed the patient's medical records. Lab Data I reviewed the patient's lab results. 11/13/23 13:36 11/13/23 13:36 Radiology Impressions Chest X-Ray 11/13/23 12:41 Impression: 1. Chronic apical pleural scarring. 2. Hyperinflation. 3. Negative for acute cardiopulmonary disease. Laboratory Results WBC 6.56 10^3/uL (3.29-11.43) 11/13/23 13:36 RBC 3.65 10^6/uL (3.85-5.65) L 11/13/23 13:36 Hgb 12.20 g/dL (11.27-16.99) 11/13/23 13:36 Hct 36.1 % (36-47) 11/13/23 13:36 MCV 98.9 fl (85-98) H 11/13/23 13:36 MCH 33.4 pg (27-33) H 11/13/23 13:36 MCHC 33.8 g/dL (30-55) 11/13/23 13:36 RDW 15.8 % (12.1-15.1) H 11/13/23 13:36 Plt Count 329 10^3/cmm (157-399) 11/13/23 13:36 MPV 10.3 fL (7.4-10.4) 11/13/23 13:36 Neut % (Auto) 86.0 % 11/13/23 13:36 Lymph % (Auto) 8.7 % 11/13/23 13:36 Sibley % (Auto) 4.6 % 11/13/23 13:36 Eos % (Auto) 0.2 % 11/13/23 13:36 Baso % (Auto) 0.2 % 11/13/23 13:36 Neut # (Auto) 5.65 10^3/uL (1.8-7.7) 11/13/23 13:36 Lymph # (Auto) 0.6 10^3/uL (0.8-4.8) L 11/13/23 13:36 Sibley # (Auto) 0.3 10^3/uL (0.2-0.9) 11/13/23 13:36 Eos # (Auto) 0.0 10^3/uL (0.0-0.8) 11/13/23 13:36 Baso # (Auto) 0.0 10^3/uL (0.0-0.1) 11/13/23 13:36 Nucleated RBC % (auto) 0 % 11/13/23 13:36 Nucleated RBCs # 0.0 /100WBC 11/13/23 13:36 Sodium 135 mmol/L (136-145) L 11/13/23 13:36 Potassium 4.4 mmol/L (3.5-5.1) 11/13/23 13:36 Chloride 103 mmol/L (98-107) 11/13/23 13:36 Carbon Dioxide 20 mmol/L (22-29) L 11/13/23 13:36 Anion Gap 16.4 (5-19) 11/13/23 13:36 BUN 9 mg/dL (6-20) 11/13/23 13:36 Creatinine 1.1 mg/dL (0.5-0.9) H 11/13/23 13:36 GFR Calculation 54.2 mL/min (90-130) L 11/13/23 13:36 Glucose 149 mg/dL (65-115) H 11/13/23 13:36 Calculated Osmolality 281 mOsm/kg (285-295) L 11/13/23 13:36 Calcium 8.7 mg/dL (8.5-10.5) 11/13/23 13:36 Total Bilirubin 0.2 mg/dL (0.15-1.2) 11/13/23 13:36 AST 29 U/L (0-32) 11/13/23 13:36 ALT 22 U/L (0-33) 11/13/23 13:36 Alkaline Phosphatase 176 U/L (35-105) H 11/13/23 13:36 Troponin T Baseline 12 ng/L (0-10) H 11/13/23 13:36 Troponin T 120 Minute 10.18 ng/L (0-10) H 11/13/23 15:36 Delta Troponin T -1.82 ABS# (0-10) L 11/13/23 15:36 Total Protein 5.9 g/dL (6.6-8.7) L 11/13/23 13:36 Albumin 3.7 g/dL (3.5-5.2) 11/13/23 13:36 Globulin 2.2 g/dL (1.3-4.6) 11/13/23 13:36 Lipase 4 U/L (13-60) L 11/13/23 13:36 All radiology interpretation(s) finalized by discharge EKG Data EKG 1: I personally reviewed and interpreted this EKG as follows: EKG interpretation date: 11/13/23 EKG interpretation time: 12:45 Interpretation: nsr hr [address] or t wave abnormalities qrs 97 qtc 393 Discharge Plan Discharge Patient Disposition: Home Clinical Impression: Chest pain Condition: Stable Prescriptions: No Action multivitamin [Multiple Vitamins] Tablet 1 tab PO DAILY@0700 cetirizine [Zyrtec] 10 mg Tablet 10 mg PO BID prednisone 5 mg Tablet 5 mg PO DAILY@0700 valacyclovir 500 mg Tablet 500 mg PO DAILY sulfamethoxazole-trimethoprim [Bactrim DS] 800-160 mg Tablet 1 tab PO .ON SAT,SAT,FRI pantoprazole [Protonix] 40 mg Tablet,Delayed Release (Dr/Ec) 40 mg PO DAILY@0700 pregabalin [Lyrica] 200 mg Capsule 200 mg PO BID@0700,1900 fluticasone propionate 50 mcg/actuation spray,suspension 1 spray INTRANASAL BID azithromycin 500 mg tablet 500 mg PO .ON SAT,SAT, FRI naloxone [Narcan] 4 mg/actuation [place],Non-Aerosol 4 mg INTRANASAL Q2M PRN (Reason: OVERDOSE) Rx Instructions: spray 1 dose into ONE nostril; alternate nostrils w each dose until help arrives ondansetron 4 mg tablet,disintegrating 4 mg PO Q6H PRN (Reason: nausea and vomiting) Qty: 14 0RF mycophenolate mofetil 250 mg capsule 250 mg PO BID Rx Instructions: TAKE WITH 500MG TO= 750MG TOTAL tramadol 50 mg tablet 200 mg PO DAILY@07 mycophenolate mofetil 500 mg tablet 500 mg PO BID Rx Instructions: TAKE WITH 250MG [id number] TOTAL fluvoxamine 100 mg tablet 100 mg PO QPM losartan 100 mg tablet 100 mg PO DAILY@07 tacrolimus 0.5 mg capsule See Rx Instructions .ROUTE .COMPLEX Rx Instructions: TAKE 2 CAPSULES BY MOUTH EVERY MORNING AND 1 CAPSULE AT BEDTIME sodium chloride 1,000 mg tablet,soluble 2,000 mg PO BID Creon 24,000-76,000 -120,000 unit capsule,delayed release(DR/EC) See Rx Instructions .ROUTE .COMPLEX Rx Instructions: TAKE 4 CAPSULES BY MOUTH 3 TIMES DAILY WITH MEALS AND ONE CAP WITH TACROLIMUS DOSE AND ONE CAP WITH A SNACK tizanidine 4 mg tablet 4 mg PO TID PRN (Reason: MUSCLE SPASMS) lidocaine 5 % adhesive patch,medicated 1 patch topical DAILY PRN (Reason: Pain) Discharge Orders: Discharge ED (Routine); Ordered 11/13/23 Ordered By: Mason Groves Referrals: Scottie Herrera MD [Primary Care Provider] - 4-7 days Discharge Diet: Advance as tolerated Discharge Activity: Resume usual activity Patient Instructions: Chest Pain (ED) Coding Level of Care Code ED Help Desk Operator for [facility] Mónica
[2023-11-13] MEDS: hyDRALAzine 20 mg/mL INJ 1 mL 10 MG IVP (13:35)
[2023-11-13 13:48] LABS: Basophils % 0.2 %; Eosinophils % 0.2 %; Hematocrit 36.1 % (36-47); Lymphocytes # 0.6 10^3/uL (0.8-4.8); Lymphocytes % 8.7 %; Mean Corpuscular HGB Conc 33.8 g/dL (30-55); Mean Corpuscular Hemoglobin 33.4 pg (27-33); Mean Corpuscular Volume 98.9 fl (85-98); Mean Platelet Volume 10.3 fL (7.4-10.4); Monocytes # 0.3 10^3/uL (0.2-0.9); Monocytes % 4.6 %; Neutrophils # 5.65 10^3/uL (1.8-7.7); Nucleated Red Blood Cells % 0 %; Platelet Count 329 10^3/cmm (157-399); Red Blood Count 3.65 10^6/uL (3.85-5.65); Red Cell Distribution Width 15.8 % (12.1-15.1); White Blood Count 6.56 10^3/uL (3.29-11.43)
[2023-11-13 14:06] LABS: Alanine Aminotransferase 22 U/L (0-33); Albumin Level 3.7 g/dL (3.5-5.2); Alkaline Phosphatase 176 U/L (35-105); Anion Gap 16.4 (5-19); Aspartate Amino Transferase 29 U/L (0-32); Blood Urea Nitrogen 9 mg/dL (6-20); Calcium 8.7 mg/dL (8.5-10.5); Carbon Dioxide 20 mmol/L (22-29); Chloride 103 mmol/L (98-107); Creatinine Clr Calc Pharmacy 47.2203; Globulin 2.2 g/dL (1.3-4.6); Glomerular Filtration Rate 54.2 mL/min (90-130); Glucose 149 mg/dL (65-115); Lipase 4 U/L (13-60); Osmolality Calculated 281 mOsm/kg (285-295); Potassium 4.4 mmol/L (3.5-5.1); Sodium 135 mmol/L (136-145); Total Bilirubin 0.2 mg/dL (0.15-1.2); Total Protein 5.9 g/dL (6.6-8.7); Troponin(5th) Baseline 12 ng/L (0-10)
--- NOTE | 2023-11-13 14:48 | ECG_ITS ---
[facility] Test Date: 2023-11-13 Pat Name: Bridgette Redd Department: Room: Gender: Female Cook'S Assistant: : 1980 Requested By: Mason Groves Order Number: [id number] Reading MD: Joe Trujillo M.D. Measurements Intervals [place] Rate: 72 P: 71 DE: 136 QRS: -11 QRSD: 92 T: 46 QT: 364 QTc: 399 Interpretive Statements SINUS RHYTHM Compared to ECG 11/13/2023 12:45:01 No significant changes Electronically Signed On 11-13-2023 17:15:56 CDT by Joe Trujillo M.D. [email or web address]
[2023-11-13 16:12] LABS: Troponin 5 2HR 10.18 ng/L (0-10)
[2023-11-13 16:21] VITALS: BP 123/84; PULSE 92; O2SAT 96
[2023-11-13 16:36] LABS: Troponin 5 2HR Delta -1.82 ABS# (0-10)
== END 2023-11-13 16:55 | disposition home or self-care (01) ==
PROVIDERS: Emergency Provider Emergency Medicine; PCP Family Medicine
DX: R07.9 Chest pain, unspecified (principal); N18.9 Chronic kidney disease, unspecified; Z94.2 Lung transplant status; E84.9 Cystic fibrosis, unspecified
CPT/HCPCS: 71045; 80053; 83690; 84484; 85025; 93005; 96374; 99285; J0360

== ENCOUNTER 2024-08-16 19:36 | Emergency (ER) | payer MEDICAID, SELFPAY ==
[2024-08-16 19:39] VITALS: BP 123/78; PULSE 88; RESP 18; TEMP 36.7; O2SAT 99; BMI 21.5
--- NOTE | 2024-08-16 20:32 | W.ED.ALLEREA ---
HPI - Allergic Reaction General: Chief complaint: Allergic Reaction Stated complaint: allergic reaction Time Seen by Provider: 08/16/24 20:18 History of Present Illness: HPI narrative: 44-year-old female presents with concern for allergic reaction. Patient reports she is allergic to doxycycline but has to be on doxycycline due to a tick bite. She has had a significant past medical history from a tickborne illness. That she got a tick bite and her specialist at [facility] put her on Doxy. They told her to take Benadryl with it. However she has not been taking the Benadryl while taking the Doxy just took a small dose. She has little bit of a rash on her face and was concerned. Associated symptoms: Deny dizziness Related Data Home Medications ?Medication ?Instructions ?Recorded ?Confirmed cetirizine 10 mg tablet (Zyrtec) 10 mg PO BID 11/09/19 11/13/23 multivitamin (Multiple Vitamins 1 tab PO DAILY@0711/09/19 11/13/23 tablet) pantoprazole 40 mg tablet,delayed 40 mg PO DAILY@69911/09/19 11/13/23 release (Protonix) prednisone 5 mg tablet 5 mg PO DAILY@0711/09/19 11/13/23 pregabalin 200 mg capsule (Lyrica) 200 mg PO BID@0700,1900 11/09/19 11/13/23 sulfamethoxazole 800 1 tab PO .ON SAT,SAT,Sat11/09/19 11/13/23 mg-trimethoprim 160 mg tablet (Bactrim DS) valacyclovir 500 mg tablet 500 mg PO DAILY 11/09/19 11/13/23 azithromycin 500 mg tablet 500 mg PO .ON SAT,SAT, Sat09/27/21 11/13/23 fluticasone propionate 50 1 spray intranasal BID 09/27/21 11/13/23 mcg/actuation nasal spray,suspension naloxone 4 mg/actuation nasal 4 mg intranasal Q2M PRN OVERDOSE 09/27/21 11/13/23 spray (Narcan) fluvoxamine 100 mg tablet 100 mg PO QPM 06/27/23 11/13/23 [id number] See Rx Instructions .Route .COMPLEX 06/27/23 11/13/23 24,000-76,000-120,000 unit capsule,delayed rel (Creon) losartan 100 mg tablet 100 mg PO DAILY@06/27/23 11/13/23 mycophenolate mofetil 250 mg 250 mg PO BID 06/27/23 11/13/23 capsule mycophenolate mofetil 500 mg tablet 500 mg PO BID 06/27/23 11/13/23 sodium chloride 1,000 mg soluble 2,000 mg PO BID 06/27/23 11/13/23 tablet tacrolimus 0.5 mg capsule, See Rx Instructions .Route .COMPLEX 06/27/23 11/13/23 immediate-release tramadol 50 mg tablet 200 mg PO DAILY@06/27/23 11/13/23 lidocaine 5 % topical patch 1 patch topical DAILY PRN Pain 11/13/23 11/13/23 tizanidine 4 mg tablet 4 mg PO TID PRN MUSCLE SPASMS 11/13/23 11/13/23 Previous Rx's ?Medication ?Instructions ?Recorded ondansetron 4 mg disintegrating 4 mg PO Q6H PRN nausea and 06/11/23 tablet vomiting #14 tabs Allergies Allergy/AdvReac Type Severity Reaction Status Date / Time ceftazidime Allergy ALGY-Anaphy Verified 06/27/23 12:16 laxis ciprofloxacin (From Cipro) Allergy ALGY-Anaphy Verified 06/27/23 12:16 laxis doxycycline Allergy ALGY-Bliste Verified 06/27/23 12:16 r levofloxacin Allergy ALGY-Anaphy Verified 06/27/23 12:16 laxis metoclopramide (From Reglan) Allergy ADR-Halluci Verified 06/27/23 12:16 nating prochlorperazine (From Allergy ALGY-Anaphy Verified 06/27/23 12:16 Compazine) laxis sulfamethoxazole (From Allergy ALGY-Anaphy Verified 06/27/23 12:16 Septra) laxis trimethoprim (From Septra) Allergy ALGY-Anaphy Verified 06/27/23 12:16 laxis Review of Systems Const: Reports: body aches, fatigue and malaise; Denies: fever(s) or chills Card: Denies: chest pain Resp: Denies: dyspnea or wheezing Musc: Denies: extremity swelling Skin/Breast: Reports: rash Neuro: Denies: dizziness or vertigo PFSH ED PFSH: Medical History MRSA infection Nephrolithiasis Hx of ehrlichiosis History of cystic fibrosis Lung transplant recipient CKD (chronic kidney disease) Cystic fibrosis Surgical History History of tracheostomy History of hysterectomy S/P cholecystectomy Family History Mother Lupus Social History Smoking and tobacco/nicotine status: never used tobacco/nicotine Alcohol intake: never Substance/Drug Use: never Physical Exam Const: COMMON NORMALS: no acute distress, patient oriented x3 and alert Resp: COMMON NORMALS: normal respiratory effort and clear to auscultation bilaterally AUSCULTATION: clear to auscultation bilaterally Cardio: COMMON NORMALS: regular rate and regular rhythm RATE: regular rate RHYTHM: regular rhythm GI: COMMON NORMALS: Soft to palpation and non-tender PALPATION: Yes Soft to palpation Extremity: COMMON NORMALS: normal to inspection, full ROM and capillary refill normal Neuro: COMMON NORMALS: patient oriented x3 SENSORIUM/ORIENTATION: Yes alert Psych: COMMON NORMALS: mental status grossly normal, cooperative and normal affect Skin: COMMON NORMALS: turgor normal NARRATIVE SKIN EXAM: Mild rash bilateral cheeks GENERAL SKIN EXAM: turgor normal Course Vital Signs: Vital signs: Vital Signs Temperature 98.0 F 08/16/24 19:39 Pulse Rate 88 08/16/24 19:39 Respiratory Rate 18 08/16/24 19:39 Blood Pressure 123/78 08/16/24 19:39 Pulse Oximetry 99 08/16/24 19:39 Oxygen Delivery Me thod Room Air 08/16/24 19:39 MDM - Allergic Reaction Medical Decision Making Patient with likely mild allergic reaction to the doxycycline. Patient was given 10 mg Decadron IM. Recommended she start Benadryl 25 mg every 6-8 hours while on the doxycycline. She should also start famotidine. Will provide a dexamethasone prescription for significant flare. She is stable and discharged home. She should follow[facility] with [facility] regarding continuation of Doxy and if her symptoms continue to worsen. No radiology studies performed this visit Discharge Plan Discharge Condition: Stable Prescriptions: No Action multivitamin [Multiple Vitamins] Tablet 1 tab PO DAILY@0700 cetirizine [Zyrtec] 10 mg Tablet 10 mg PO BID prednisone 5 mg Tablet 5 mg PO DAILY@0700 valacyclovir 500 mg Tablet 500 mg PO DAILY sulfamethoxazole-trimethoprim [Bactrim DS] 800-160 mg Tablet 1 tab PO .ON MON,SAT,FRI pantoprazole [Protonix] 40 mg Tablet,Delayed Release (Dr/Ec) 40 mg PO DAILY@0700 pregabalin [Lyrica] 200 mg Capsule 200 mg PO BID@0700,1900 fluticasone propionate 50 mcg/actuation spray,suspension 1 spray INTRANASAL BID azithromycin 500 mg tablet 500 mg PO .ON SAT,SAT, FRI naloxone [Narcan] 4 mg/actuation [place],Non-Aerosol 4 mg INTRANASAL Q2M PRN (Reason: OVERDOSE) Rx Instructions: spray 1 dose into ONE nostril; alternate nostrils w each dose until help arrives ondansetron 4 mg tablet,disintegrating 4 mg PO Q6H PRN (Reason: nausea and vomiting) Qty: 14 0RF mycophenolate mofetil 250 mg capsule 250 mg PO BID Rx Instructions: TAKE WITH 500MG TO= 750MG TOTAL tramadol 50 mg tablet 200 mg PO DAILY@07 mycophenolate mofetil 500 mg tablet 500 mg PO BID Rx Instructions: TAKE WITH 250MG [id number] TOTAL fluvoxamine 100 mg tablet 100 mg PO QPM losartan 100 mg tablet 100 mg PO DAILY@07 tacrolimus 0.5 mg capsule See Rx Instructions .ROUTE .COMPLEX Rx Instructions: TAKE 2 CAPSULES BY MOUTH EVERY MORNING AND 1 CAPSULE AT BEDTIME sodium chloride 1,000 mg tablet,soluble 2,000 mg PO BID Creon 24,000-76,000 -120,000 unit capsule,delayed release(DR/EC) See Rx Instructions .ROUTE .COMPLEX Rx Instructions: TAKE 4 CAPSULES BY MOUTH 3 TIMES DAILY WITH MEALS AND ONE CAP WITH TACROLIMUS DOSE AND ONE CAP WITH A SNACK tizanidine 4 mg tablet 4 mg PO TID PRN (Reason: MUSCLE SPASMS) lidocaine 5 % adhesive patch,medicated 1 patch topical DAILY PRN (Reason: Pain) Referrals: Scottie Herrera MD [Primary Care Provider, Family Practice] Print Language: Swedish Coding Level of Care Code ED Red Cap for [facility] [employer]
[2024-08-16] MEDS: dexamethasone 10 mg/mL INJ IM (20:34)
[2024-08-16 20:58] VITALS: BP 120/68; PULSE 80; RESP 16; O2SAT 96
== END 2024-08-16 21:11 | disposition home or self-care (01) ==
PROVIDERS: Emergency Provider Student in an Organized Health Care Education/Training Program; PCP Family Medicine
DX: T78.40XA Allergy, unspecified, initial encounter (principal); T36.4X5A Adverse effect of tetracyclines, initial encounter; N18.6 End stage renal disease; X58.XXXA Exposure to other specified factors, initial encounter
CPT/HCPCS: 96372; 99284; J1100